=== PATIENT | male | born 1950 | race Caucasian/White ===

== ENCOUNTER 2017-08-08 13:20 | Inpatient (IN) | payer MEDICARE, MEDICAID ==
[~2017-08-08 13:20] MED LIST: ALBUTEROL SULFATE 2.5 MG/0.5 ML INH NEB SOLN NEB; BISACODYL 5 MG TAB PO; MIRALAX *UNIT DOSE* 17GM PACKET PO; NICOTINE POLACRILEX 2 MG GUM PO; ONDANSETRON 4 MG TAB (S0181) PO; ONDANSETRON 4MG/2ML VIAL (J2405) IM; SIMETHICONE 80 MG CHEW TAB PO; diphenhydrAMINE 25 MG CAP PO
[2017-08-08] MEDS: IPRATROPIUM 0.5MG/ALBUTEROL 2.5MG INH SOL UD 3ML (DUONEB)(J7620) NEB ×2 (16:49→20:00)
[2017-08-08] MEDS: GABAPENTIN 300 MG CAP PO ×2 (16:53→21:29)
[2017-08-08] MEDS: SILVER SULFADIAZINE 1% CR 50 GM JAR TOP ×2 (16:53→21:43)
[2017-08-08] MEDS: FOLIC ACID 1 MG TAB PO (16:53)
[2017-08-08] MEDS: oxyCODONE 5MG TAB PO ×2 (16:56→22:52)
[2017-08-08] MEDS: LOMOTIL 2.5MG/0.025MG TABLET PO ×2 (17:28→21:29)
[2017-08-08] MEDS: LOPERAMIDE 2 MG CAP PO ×2 (17:28→21:29)
[2017-08-08] MEDS: SYMBICORT 160/4.5MCG INHALER 6GM INH (20:29)
[2017-08-08] MEDS: MAGNESIUM GLUCONATE 500 MG TAB PO (21:28)
[2017-08-08] MEDS: METAMUCIL (PSYLLIUM) PACKET PO (21:28)
[2017-08-08] MEDS: FAMOTIDINE 20 MG TAB PO (21:29)
[2017-08-08] MEDS: APIXABAN 5 MG TAB (ELIQUIS) PO (21:31)
[2017-08-08] MEDS: traZODone 25MG PER 1/2 TABLET PO (21:32)
[2017-08-09] MEDS: GABAPENTIN 300 MG CAP PO ×3 (05:39→21:04)
[2017-08-09] MEDS: oxyCODONE 5MG TAB PO ×3 (06:53→21:53)
[2017-08-09 06:54] LABS: BASO % 0.3 % (0.0-1.0); EOS # 0.2 10^3/uL (0.0-0.50); EOS % 1.7 % (0.0-3.0); HEMOGLOBIN 10.6 g/dl (14.0-18.0); IMMATURE GRANULOCYTE % 0.3 % (0-3.0); LYMPH # 2.4 10^3/uL (1.5-4.5); LYMPH % 23.7 % (24.0-44.0); MEAN CORPUSCULAR HEMOGLOBIN 24.7 pg (27.0-33.0); MEAN CORPUSCULAR HGB CONC 29.4 g/dl (32.0-36.5); MEAN CORPUSCULAR VOLUME 83.7 fl (80.0-96.0); MONO # 0.9 10^3/uL (0.0-0.8); MONO % 9.4 % (0.0-5.0); NEUTROPHILS # 6.5 10^3/uL (1.8-7.7); NEUTROPHILS % 64.6 % (36.0-66.0); PLATELET COUNT, AUTOMATED 424 10^3/uL (150-450); RED CELL DISTRIBUTION WIDTH 16.2 % (11.5-14.5)
[2017-08-09 07:16] LABS: ALBUMIN 2.6 GM/DL (3.2-5.2); ALBUMIN/GLOBULIN RATIO 0.57 (1.00-1.93); ALKALINE PHOSPHATASE 96 U/L (45-117); ALT/SGPT 18 U/L (12-78); ANION GAP 8 MEQ/L (8-16); AST/SGOT 16 U/L (7-37); BILIRUBIN,TOTAL 0.3 MG/DL (0.2-1.0); BLOOD UREA NITROGEN 5 MG/DL (7-18); CALCIUM LEVEL 9.7 MG/DL (8.8-10.2); CARBON DIOXIDE LEVEL 26 MEQ/L (21-32); CHLORIDE LEVEL 107 MEQ/L (98-107); CREATININE FOR GFR 0.53 MG/DL (0.70-1.30); GLOMERULAR FILTRATION RATE > 60.0 (>49); GLUCOSE, FASTING 97 MG/DL (70-100); MAGNESIUM LEVEL 1.5 MG/DL (1.8-2.4); POTASSIUM SERUM 4.3 MEQ/L (3.5-5.1); SODIUM LEVEL 141 MEQ/L (136-145); TOTAL PROTEIN 7.2 GM/DL (6.4-8.2)
[2017-08-09] MEDS: SYMBICORT 160/4.5MCG INHALER 6GM INH ×2 (07:36→19:58)
[2017-08-09] MEDS: IPRATROPIUM 0.5MG/ALBUTEROL 2.5MG INH SOL UD 3ML (DUONEB)(J7620) NEB ×4 (07:36→19:59)
[2017-08-09] MEDS: LOMOTIL 2.5MG/0.025MG TABLET PO ×4 (08:31→21:04)
[2017-08-09] MEDS: FLUTICASONE PROP 0.05% NASAL SPRAY 16 GM (FLONASE) (08:31)
[2017-08-09] MEDS: MAGNESIUM GLUCONATE 500 MG TAB PO ×2 (08:32→21:04)
[2017-08-09] MEDS: predniSONE 5 MG TAB PO (08:32)
[2017-08-09] MEDS: APIXABAN 5 MG TAB (ELIQUIS) PO ×2 (08:32→21:04)
[2017-08-09] MEDS: FAMOTIDINE 20 MG TAB PO ×2 (08:32→21:04)
[2017-08-09] MEDS: FOLIC ACID 1 MG TAB PO (08:33)
[2017-08-09] MEDS: LOPERAMIDE 2 MG CAP PO ×4 (08:33→21:04)
[2017-08-09] MEDS: NICOTINE 21MG/24HR 1 EA TRANSDERMAL TD (08:33)
[2017-08-09] MEDS: METAMUCIL (PSYLLIUM) PACKET PO ×2 (08:33→21:03)
[2017-08-09] MEDS: SILVER SULFADIAZINE 1% CR 50 GM JAR TOP (08:34)
[2017-08-09] MEDS: ACETAMINOPHEN TAB 650MG DOSE (2X325MG) PO ×2 (10:08→18:43)
[2017-08-09] MEDS: MAG SULF 1GM/100ML (MAG RUN) 1 GM in APPROPRIATE DILUENT 1 EA IV ×2 (10:35→17:28)
[2017-08-09] MEDS ORDERED: GLUCOSE 4 GM CHEW TABLET PO (11:30)
[2017-08-09] MEDS ORDERED: DEXTROSE 50% 50 ML SYRINGE IV (11:30)
[2017-08-09] MEDS ORDERED: GLUCAGON FOR INJ 1 MG VIAL (J1610) SC (11:30)
[2017-08-09 12:17] LABS: BEDSIDE GLUCOSE 122 MG/DL (80-115)
[2017-08-09] MEDS: LIDOCAINE 2% JELLY 30 ML TOP (16:57)
[2017-08-09 18:55] LABS: BEDSIDE GLUCOSE 125 MG/DL (80-115)
[2017-08-09] MEDS ORDERED: HumaLOG INSULIN (NovoLOG) PER UNIT SC (21:00)
[2017-08-09] MEDS: traZODone 25MG PER 1/2 TABLET PO (21:04)
[2017-08-09 23:22] LABS: BEDSIDE GLUCOSE 106 MG/DL (80-115)
[2017-08-10] MEDS: oxyCODONE 5MG TAB PO ×3 (05:53→22:24)
[2017-08-10] MEDS: GABAPENTIN 300 MG CAP PO ×3 (05:53→22:15)
[2017-08-10 07:24] LABS: ANION GAP 9 MEQ/L (8-16); BLOOD UREA NITROGEN 8 MG/DL (7-18); CALCIUM LEVEL 9.8 MG/DL (8.8-10.2); CARBON DIOXIDE LEVEL 27 MEQ/L (21-32); CHLORIDE LEVEL 104 MEQ/L (98-107); CREATININE FOR GFR 0.52 MG/DL (0.70-1.30); GLOMERULAR FILTRATION RATE > 60.0 (>49); GLUCOSE, FASTING 71 MG/DL (70-100); MAGNESIUM LEVEL 1.8 MG/DL (1.8-2.4); POTASSIUM SERUM 4.4 MEQ/L (3.5-5.1); SODIUM LEVEL 140 MEQ/L (136-145)
[2017-08-10] MEDS: IPRATROPIUM 0.5MG/ALBUTEROL 2.5MG INH SOL UD 3ML (DUONEB)(J7620) NEB ×4 (08:00→20:00)
[2017-08-10] MEDS: SYMBICORT 160/4.5MCG INHALER 6GM INH ×2 (08:50→21:34)
[2017-08-10] MEDS: METAMUCIL (PSYLLIUM) PACKET PO ×2 (09:06→22:15)
[2017-08-10] MEDS: NICOTINE 21MG/24HR 1 EA TRANSDERMAL TD (09:06)
[2017-08-10] MEDS: predniSONE 5 MG TAB PO (09:07)
[2017-08-10] MEDS: APIXABAN 5 MG TAB (ELIQUIS) PO ×2 (09:07→22:16)
[2017-08-10] MEDS: LOPERAMIDE 2 MG CAP PO ×4 (09:07→22:17)
[2017-08-10] MEDS: LOMOTIL 2.5MG/0.025MG TABLET PO ×4 (09:07→22:16)
[2017-08-10] MEDS: FAMOTIDINE 20 MG TAB PO ×2 (09:07→22:17)
[2017-08-10] MEDS: FLUTICASONE PROP 0.05% NASAL SPRAY 16 GM (FLONASE) (09:08)
[2017-08-10] MEDS: SILVER SULFADIAZINE 1% CR 50 GM JAR TOP (09:08)
[2017-08-10] MEDS: MAGNESIUM GLUCONATE 500 MG TAB PO ×3 (09:08→22:16)
[2017-08-10] MEDS: FOLIC ACID 1 MG TAB PO (09:08)
[2017-08-10] MEDS: ACETAMINOPHEN TAB 650MG DOSE (2X325MG) PO (09:50)
[2017-08-10 11:45] LABS: BEDSIDE GLUCOSE 137 MG/DL (80-115)
[2017-08-10] MEDS ORDERED: VARIBAR NECTAR 40% w/v 240ML SUSP BTL As Ordered (14:06)
[2017-08-10] MEDS ORDERED: VARIBAR PUDDING 40% w/v 230ML TUBE As Ordered (14:06)
[2017-08-10] MEDS ORDERED: E-Z-PAQUE 96% w/w SUSP 176GM BTL As Ordered (14:07)
[2017-08-10] MEDS: traZODone 25MG PER 1/2 TABLET PO (22:16)
[2017-08-11] MEDS: oxyCODONE 5MG TAB PO ×3 (06:13→21:30)
[2017-08-11] MEDS: GABAPENTIN 300 MG CAP PO ×3 (06:15→21:28)
[2017-08-11] MEDS: IPRATROPIUM 0.5MG/ALBUTEROL 2.5MG INH SOL UD 3ML (DUONEB)(J7620) NEB ×4 (08:00→20:00)
[2017-08-11] MEDS: SYMBICORT 160/4.5MCG INHALER 6GM INH ×2 (08:34→20:34)
[2017-08-11] MEDS: MAGNESIUM GLUCONATE 500 MG TAB PO ×3 (09:29→21:29)
[2017-08-11] MEDS: NICOTINE 21MG/24HR 1 EA TRANSDERMAL TD (09:29)
[2017-08-11] MEDS: METAMUCIL (PSYLLIUM) PACKET PO ×2 (09:29→21:28)
[2017-08-11] MEDS: FOLIC ACID 1 MG TAB PO (09:30)
[2017-08-11] MEDS: APIXABAN 5 MG TAB (ELIQUIS) PO ×2 (09:30→21:29)
[2017-08-11] MEDS: FAMOTIDINE 20 MG TAB PO ×2 (09:30→21:29)
[2017-08-11] MEDS: LOPERAMIDE 2 MG CAP PO ×4 (09:30→21:29)
[2017-08-11] MEDS: predniSONE 5 MG TAB PO (09:30)
[2017-08-11] MEDS: LOMOTIL 2.5MG/0.025MG TABLET PO ×4 (09:31→21:29)
[2017-08-11] MEDS: SILVER SULFADIAZINE 1% CR 50 GM JAR TOP (09:31)
[2017-08-11] MEDS: FLUTICASONE PROP 0.05% NASAL SPRAY 16 GM (FLONASE) (09:31)
[2017-08-11] MEDS: ACETAMINOPHEN TAB 650MG DOSE (2X325MG) PO (10:04)
[2017-08-11] MEDS: traZODone 25MG PER 1/2 TABLET PO (21:29)
[2017-08-12] MEDS: GABAPENTIN 300 MG CAP PO ×3 (06:45→21:27)
[2017-08-12] MEDS: oxyCODONE 5MG TAB PO ×3 (06:46→21:23)
[2017-08-12 07:27] LABS: BASO % 0.3 % (0.0-1.0); EOS # 0.2 10^3/uL (0.0-0.50); HEMATOCRIT 34.8 % (42.0-52.0); HEMOGLOBIN 10.1 g/dl (14.0-18.0); IMMATURE GRANULOCYTE % 0.4 % (0-3.0); LYMPH # 2.9 10^3/uL (1.5-4.5); LYMPH % 27.9 % (24.0-44.0); MEAN CORPUSCULAR HEMOGLOBIN 24.6 pg (27.0-33.0); MEAN CORPUSCULAR VOLUME 84.7 fl (80.0-96.0); MONO # 0.9 10^3/uL (0.0-0.8); MONO % 8.8 % (0.0-5.0); NEUTROPHILS # 6.3 10^3/uL (1.8-7.7); NEUTROPHILS % 60.6 % (36.0-66.0); PLATELET COUNT, AUTOMATED 381 10^3/uL (150-450); RED BLOOD COUNT 4.11 10^6/uL (4.30-6.10); RED CELL DISTRIBUTION WIDTH 16.4 % (11.5-14.5); WHITE BLOOD COUNT 10.4 10^3/uL (4.0-10.0)
[2017-08-12] MEDS: IPRATROPIUM 0.5MG/ALBUTEROL 2.5MG INH SOL UD 3ML (DUONEB)(J7620) NEB ×4 (07:38→19:42)
[2017-08-12 07:51] LABS: ANION GAP 7 MEQ/L (8-16); BLOOD UREA NITROGEN 6 MG/DL (7-18); CALCIUM LEVEL 9.7 MG/DL (8.8-10.2); CARBON DIOXIDE LEVEL 27 MEQ/L (21-32); CHLORIDE LEVEL 107 MEQ/L (98-107); CREATININE FOR GFR 0.51 MG/DL (0.70-1.30); GLOMERULAR FILTRATION RATE > 60.0 (>49); GLUCOSE, FASTING 69 MG/DL (70-100); MAGNESIUM LEVEL 1.5 MG/DL (1.8-2.4); POTASSIUM SERUM 4.1 MEQ/L (3.5-5.1); SODIUM LEVEL 141 MEQ/L (136-145)
[2017-08-12] MEDS: LOMOTIL 2.5MG/0.025MG TABLET PO ×4 (08:24→21:22)
[2017-08-12] MEDS: APIXABAN 5 MG TAB (ELIQUIS) PO ×2 (08:25→21:23)
[2017-08-12] MEDS: MAGNESIUM GLUCONATE 500 MG TAB PO ×3 (08:25→21:21)
[2017-08-12] MEDS: FOLIC ACID 1 MG TAB PO (08:25)
[2017-08-12] MEDS: predniSONE 5 MG TAB PO (08:25)
[2017-08-12] MEDS: NICOTINE 21MG/24HR 1 EA TRANSDERMAL TD (08:25)
[2017-08-12] MEDS: LOPERAMIDE 2 MG CAP PO ×4 (08:25→21:24)
[2017-08-12] MEDS: METAMUCIL (PSYLLIUM) PACKET PO ×2 (08:25→21:21)
[2017-08-12] MEDS: FAMOTIDINE 20 MG TAB PO ×2 (08:25→21:23)
[2017-08-12] MEDS: FLUTICASONE PROP 0.05% NASAL SPRAY 16 GM (FLONASE) (08:27)
[2017-08-12] MEDS: SYMBICORT 160/4.5MCG INHALER 6GM INH ×2 (09:38→19:42)
[2017-08-12] MEDS: ACETAMINOPHEN TAB 650MG DOSE (2X325MG) PO (10:21)
[2017-08-12] MEDS: MAG SULF 1GM/100ML (MAG RUN) 1 GM in APPROPRIATE DILUENT 1 EA IV (12:24)
[2017-08-12 21:02] LABS: BEDSIDE GLUCOSE 116 MG/DL (80-115)
[2017-08-12] MEDS: traZODone 25MG PER 1/2 TABLET PO (21:21)
[2017-08-13] MEDS: GABAPENTIN 300 MG CAP PO ×3 (05:33→21:26)
[2017-08-13 06:12] LABS: HEMATOCRIT 33.9 % (42.0-52.0); HEMOGLOBIN 9.7 g/dl (14.0-18.0); MEAN CORPUSCULAR HEMOGLOBIN 24.1 pg (27.0-33.0); MEAN CORPUSCULAR HGB CONC 28.6 g/dl (32.0-36.5); MEAN CORPUSCULAR VOLUME 84.3 fl (80.0-96.0); PLATELET COUNT, AUTOMATED 364 10^3/uL (150-450); RED BLOOD COUNT 4.02 10^6/uL (4.30-6.10); RED CELL DISTRIBUTION WIDTH 16.1 % (11.5-14.5)
[2017-08-13 06:51] LABS: ALBUMIN 2.4 GM/DL (3.2-5.2); ALBUMIN/GLOBULIN RATIO 0.56 (1.00-1.93); ALKALINE PHOSPHATASE 87 U/L (45-117); ALT/SGPT 27 U/L (12-78); ANION GAP 8 MEQ/L (8-16); AST/SGOT 19 U/L (7-37); BILIRUBIN,TOTAL 0.3 MG/DL (0.2-1.0); BLOOD UREA NITROGEN 6 MG/DL (7-18); CALCIUM LEVEL 9.6 MG/DL (8.8-10.2); CARBON DIOXIDE LEVEL 25 MEQ/L (21-32); CHLORIDE LEVEL 108 MEQ/L (98-107); CREATININE FOR GFR 0.41 MG/DL (0.70-1.30); GLOMERULAR FILTRATION RATE > 60.0 (>49); GLUCOSE, FASTING 59 MG/DL (70-100); MAGNESIUM LEVEL 1.6 MG/DL (1.8-2.4); POTASSIUM SERUM 3.8 MEQ/L (3.5-5.1); SODIUM LEVEL 141 MEQ/L (136-145); TOTAL PROTEIN 6.7 GM/DL (6.4-8.2)
[2017-08-13] MEDS: LOMOTIL 2.5MG/0.025MG TABLET PO ×4 (07:38→21:25)
[2017-08-13] MEDS: oxyCODONE 5MG TAB PO ×3 (07:39→21:26)
[2017-08-13] MEDS: LOPERAMIDE 2 MG CAP PO ×4 (07:39→21:26)
[2017-08-13] MEDS: IPRATROPIUM 0.5MG/ALBUTEROL 2.5MG INH SOL UD 3ML (DUONEB)(J7620) NEB ×4 (08:00→19:22)
[2017-08-13] MEDS: SYMBICORT 160/4.5MCG INHALER 6GM INH ×2 (08:21→19:22)
[2017-08-13] MEDS: METAMUCIL (PSYLLIUM) PACKET PO ×2 (08:59→21:25)
[2017-08-13] MEDS: MAGNESIUM GLUCONATE 500 MG TAB PO ×3 (08:59→21:26)
[2017-08-13] MEDS: APIXABAN 5 MG TAB (ELIQUIS) PO ×2 (08:59→21:26)
[2017-08-13] MEDS: NICOTINE 21MG/24HR 1 EA TRANSDERMAL TD (08:59)
[2017-08-13] MEDS: FOLIC ACID 1 MG TAB PO (08:59)
[2017-08-13] MEDS: predniSONE 5 MG TAB PO (08:59)
[2017-08-13] MEDS: FLUTICASONE PROP 0.05% NASAL SPRAY 16 GM (FLONASE) (08:59)
[2017-08-13] MEDS: FAMOTIDINE 20 MG TAB PO ×2 (08:59→21:26)
[2017-08-13] MEDS: ACETAMINOPHEN TAB 650MG DOSE (2X325MG) PO (11:23)
[2017-08-13 11:33] LABS: BEDSIDE GLUCOSE 117 MG/DL (80-115)
[2017-08-13 16:38] LABS: BEDSIDE GLUCOSE 107 MG/DL (80-115)
[2017-08-13] MEDS: MAG SULF 1GM/100ML (MAG RUN) 1 GM in APPROPRIATE DILUENT 1 EA IV (21:25)
[2017-08-13] MEDS: traZODone 25MG PER 1/2 TABLET PO (21:25)
[2017-08-13 23:04] LABS: BEDSIDE GLUCOSE 131 MG/DL (80-115)
[2017-08-14 01:55] LABS: MAGNESIUM LEVEL 1.7 MG/DL (1.8-2.4)
[2017-08-14] MEDS: MAG SULF 1GM/100ML (MAG RUN) 1 GM in APPROPRIATE DILUENT 1 EA IV (03:07)
[2017-08-14] MEDS: oxyCODONE 5MG TAB PO ×3 (06:08→20:24)
[2017-08-14] MEDS: GABAPENTIN 300 MG CAP PO ×3 (06:08→21:56)
[2017-08-14 06:19] LABS: HEMATOCRIT 31.4 % (42.0-52.0); HEMOGLOBIN 9.2 g/dl (14.0-18.0); MEAN CORPUSCULAR HEMOGLOBIN 24.7 pg (27.0-33.0); MEAN CORPUSCULAR HGB CONC 29.3 g/dl (32.0-36.5); MEAN CORPUSCULAR VOLUME 84.4 fl (80.0-96.0); PLATELET COUNT, AUTOMATED 352 10^3/uL (150-450); RED BLOOD COUNT 3.72 10^6/uL (4.30-6.10); RED CELL DISTRIBUTION WIDTH 16.1 % (11.5-14.5); WHITE BLOOD COUNT 9.6 10^3/uL (4.0-10.0)
[2017-08-14 06:44] LABS: ALBUMIN 2.4 GM/DL (3.2-5.2); ALBUMIN/GLOBULIN RATIO 0.62 (1.00-1.93); ALKALINE PHOSPHATASE 82 U/L (45-117); ALT/SGPT 27 U/L (12-78); ANION GAP 7 MEQ/L (8-16); AST/SGOT 17 U/L (7-37); BILIRUBIN,TOTAL 0.2 MG/DL (0.2-1.0); BLOOD UREA NITROGEN 4 MG/DL (7-18); CALCIUM LEVEL 9.1 MG/DL (8.8-10.2); CARBON DIOXIDE LEVEL 26 MEQ/L (21-32); CHLORIDE LEVEL 111 MEQ/L (98-107); CREATININE FOR GFR 0.39 MG/DL (0.70-1.30); GLOMERULAR FILTRATION RATE > 60.0 (>49); GLUCOSE, FASTING 71 MG/DL (70-100); MAGNESIUM LEVEL 1.9 MG/DL (1.8-2.4); POTASSIUM SERUM 3.7 MEQ/L (3.5-5.1); SODIUM LEVEL 144 MEQ/L (136-145); TOTAL PROTEIN 6.3 GM/DL (6.4-8.2)
[2017-08-14] MEDS: IPRATROPIUM 0.5MG/ALBUTEROL 2.5MG INH SOL UD 3ML (DUONEB)(J7620) NEB ×3 (08:00→15:11)
[2017-08-14] MEDS: SYMBICORT 160/4.5MCG INHALER 6GM INH ×2 (08:19→19:34)
[2017-08-14] MEDS: LOMOTIL 2.5MG/0.025MG TABLET PO ×4 (09:06→20:24)
[2017-08-14] MEDS: MAGNESIUM GLUCONATE 500 MG TAB PO ×3 (09:06→20:23)
[2017-08-14] MEDS: FOLIC ACID 1 MG TAB PO (09:06)
[2017-08-14] MEDS: LOPERAMIDE 2 MG CAP PO ×4 (09:06→20:24)
[2017-08-14] MEDS: predniSONE 5 MG TAB PO (09:07)
[2017-08-14] MEDS: FLUTICASONE PROP 0.05% NASAL SPRAY 16 GM (FLONASE) (09:07)
[2017-08-14] MEDS: NICOTINE 21MG/24HR 1 EA TRANSDERMAL TD (09:07)
[2017-08-14] MEDS: APIXABAN 5 MG TAB (ELIQUIS) PO ×2 (09:07→20:24)
[2017-08-14] MEDS: METAMUCIL (PSYLLIUM) PACKET PO ×2 (09:07→20:24)
[2017-08-14] MEDS: FAMOTIDINE 20 MG TAB PO ×2 (09:07→20:24)
[2017-08-14] MEDS: ACETAMINOPHEN TAB 650MG DOSE (2X325MG) PO (09:08)
[2017-08-14] MEDS: traZODone 25MG PER 1/2 TABLET PO (20:23)
[2017-08-14 20:39] LABS: BEDSIDE GLUCOSE 104 MG/DL (80-115)
[2017-08-15] MEDS: GABAPENTIN 300 MG CAP PO ×3 (06:29→21:30)
[2017-08-15] MEDS: oxyCODONE 5MG TAB PO ×2 (06:31→12:58)
[2017-08-15 07:01] LABS: HEMATOCRIT 34.5 % (42.0-52.0); HEMOGLOBIN 10.1 g/dl (14.0-18.0); MEAN CORPUSCULAR HEMOGLOBIN 24.6 pg (27.0-33.0); MEAN CORPUSCULAR HGB CONC 29.3 g/dl (32.0-36.5); MEAN CORPUSCULAR VOLUME 83.9 fl (80.0-96.0); PLATELET COUNT, AUTOMATED 389 10^3/uL (150-450); RED BLOOD COUNT 4.11 10^6/uL (4.30-6.10); RED CELL DISTRIBUTION WIDTH 16.3 % (11.5-14.5); WHITE BLOOD COUNT 10.3 10^3/uL (4.0-10.0)
[2017-08-15 07:20] LABS: ALBUMIN 2.6 GM/DL (3.2-5.2); ALBUMIN/GLOBULIN RATIO 0.72 (1.00-1.93); ALKALINE PHOSPHATASE 84 U/L (45-117); ALT/SGPT 30 U/L (12-78); ANION GAP 8 MEQ/L (8-16); AST/SGOT 20 U/L (7-37); BILIRUBIN,TOTAL 0.2 MG/DL (0.2-1.0); BLOOD UREA NITROGEN 5 MG/DL (7-18); CALCIUM LEVEL 9.6 MG/DL (8.8-10.2); CARBON DIOXIDE LEVEL 26 MEQ/L (21-32); CHLORIDE LEVEL 110 MEQ/L (98-107); CREATININE FOR GFR 0.45 MG/DL (0.70-1.30); GLOMERULAR FILTRATION RATE > 60.0 (>49); GLUCOSE, FASTING 70 MG/DL (70-100); MAGNESIUM LEVEL 1.7 MG/DL (1.8-2.4); POTASSIUM SERUM 4.1 MEQ/L (3.5-5.1); SODIUM LEVEL 144 MEQ/L (136-145); TOTAL PROTEIN 6.2 GM/DL (6.4-8.2)
[2017-08-15] MEDS: IPRATROPIUM 0.5MG/ALBUTEROL 2.5MG INH SOL UD 3ML (DUONEB)(J7620) NEB ×4 (08:00→20:00)
[2017-08-15] MEDS: SYMBICORT 160/4.5MCG INHALER 6GM INH ×2 (08:19→19:38)
[2017-08-15] MEDS: FLUTICASONE PROP 0.05% NASAL SPRAY 16 GM (FLONASE) (08:49)
[2017-08-15] MEDS: predniSONE 5 MG TAB PO (08:50)
[2017-08-15] MEDS: LOMOTIL 2.5MG/0.025MG TABLET PO ×4 (08:50→21:30)
[2017-08-15] MEDS: MAGNESIUM GLUCONATE 500 MG TAB PO ×3 (08:50→21:30)
[2017-08-15] MEDS: FOLIC ACID 1 MG TAB PO (08:51)
[2017-08-15] MEDS: NICOTINE 21MG/24HR 1 EA TRANSDERMAL TD (08:51)
[2017-08-15] MEDS: LOPERAMIDE 2 MG CAP PO ×4 (08:51→21:28)
[2017-08-15] MEDS: FAMOTIDINE 20 MG TAB PO ×2 (08:51→21:30)
[2017-08-15] MEDS: APIXABAN 5 MG TAB (ELIQUIS) PO ×2 (08:51→21:30)
[2017-08-15] MEDS: METAMUCIL (PSYLLIUM) PACKET PO (08:51)
[2017-08-15 12:27] LABS: BEDSIDE GLUCOSE 111 MG/DL (80-115)
[2017-08-15] MEDS: MAG SULF 1GM/100ML (MAG RUN) 1 GM in APPROPRIATE DILUENT 1 EA IV (12:37)
[2017-08-15] MEDS ORDERED: SALIVA SUBSTITUTE(MOUTHKOTE) BTL MT ×2 (13:00)
[2017-08-15] MEDS: SALIVA SUBSTITUTE(MOUTHKOTE) BTL MT ×2 (15:09→21:31)
[2017-08-15 17:15] LABS: BEDSIDE GLUCOSE 114 MG/DL (80-115)
[2017-08-15] MEDS: traZODone 25MG PER 1/2 TABLET PO (21:30)
[2017-08-15] MEDS: MORPHINE 15 MG SA TAB PO (21:30)
[2017-08-16] MEDS: GABAPENTIN 300 MG CAP PO ×3 (06:29→21:53)
[2017-08-16] MEDS: oxyCODONE 5MG TAB PO ×3 (06:30→21:54)
[2017-08-16] MEDS: SODIUM CHLORIDE NASAL 0.65% SPRAY BTL (OCEAN) (06:31)
[2017-08-16 06:36] LABS: MEAN CORPUSCULAR HEMOGLOBIN 24.4 pg (27.0-33.0); MEAN CORPUSCULAR HGB CONC 29.4 g/dl (32.0-36.5); MEAN CORPUSCULAR VOLUME 82.9 fl (80.0-96.0); PLATELET COUNT, AUTOMATED 392 10^3/uL (150-450); RED CELL DISTRIBUTION WIDTH 16.4 % (11.5-14.5); WHITE BLOOD COUNT 11.2 10^3/uL (4.0-10.0)
[2017-08-16 06:58] LABS: ALBUMIN 2.6 GM/DL (3.2-5.2); ALBUMIN/GLOBULIN RATIO 0.68 (1.00-1.93); ALKALINE PHOSPHATASE 92 U/L (45-117); ALT/SGPT 33 U/L (12-78); ANION GAP 7 MEQ/L (8-16); AST/SGOT 23 U/L (7-37); BILIRUBIN,TOTAL 0.3 MG/DL (0.2-1.0); BLOOD UREA NITROGEN 6 MG/DL (7-18); CALCIUM LEVEL 9.6 MG/DL (8.8-10.2); CARBON DIOXIDE LEVEL 26 MEQ/L (21-32); CHLORIDE LEVEL 108 MEQ/L (98-107); CREATININE FOR GFR 0.42 MG/DL (0.70-1.30); GLOMERULAR FILTRATION RATE > 60.0 (>49); GLUCOSE, FASTING 65 MG/DL (70-100); MAGNESIUM LEVEL 1.6 MG/DL (1.8-2.4); SODIUM LEVEL 141 MEQ/L (136-145); TOTAL PROTEIN 6.4 GM/DL (6.4-8.2)
[2017-08-16] MEDS: IPRATROPIUM 0.5MG/ALBUTEROL 2.5MG INH SOL UD 3ML (DUONEB)(J7620) NEB ×3 (08:00→16:20)
[2017-08-16] MEDS: FOLIC ACID 1 MG TAB PO (08:16)
[2017-08-16] MEDS: predniSONE 5 MG TAB PO (08:16)
[2017-08-16] MEDS: FAMOTIDINE 20 MG TAB PO ×2 (08:16→21:53)
[2017-08-16] MEDS: APIXABAN 5 MG TAB (ELIQUIS) PO ×2 (08:16→21:53)
[2017-08-16] MEDS: MAGNESIUM GLUCONATE 500 MG TAB PO ×3 (08:16→21:54)
[2017-08-16] MEDS: NICOTINE 14 MG/24 HR TRANSDERMAL TD (08:16)
[2017-08-16] MEDS: LOMOTIL 2.5MG/0.025MG TABLET PO ×4 (08:16→21:54)
[2017-08-16] MEDS: SALIVA SUBSTITUTE(MOUTHKOTE) BTL MT ×3 (08:17→21:55)
[2017-08-16] MEDS: FLUTICASONE PROP 0.05% NASAL SPRAY 16 GM (FLONASE) (08:17)
[2017-08-16] MEDS: LOPERAMIDE 2 MG CAP PO (08:17)
[2017-08-16] MEDS: SYMBICORT 160/4.5MCG INHALER 6GM INH ×2 (08:21→19:30)
[2017-08-16] MEDS: MAG SULF 1GM/100ML (MAG RUN) 1 GM in APPROPRIATE DILUENT 1 EA IV ×2 (11:56→13:12)
[2017-08-16] MEDS: CHOLESTYRAMINE 4 GM PWD PKT PO (17:59)
[2017-08-16] MEDS: traZODone 25MG PER 1/2 TABLET PO (21:54)
[2017-08-17] MEDS: GABAPENTIN 300 MG CAP PO ×3 (05:59→20:55)
[2017-08-17] MEDS: oxyCODONE 5MG TAB PO ×3 (05:59→15:53)
[2017-08-17 07:16] LABS: HEMATOCRIT 33.2 % (42.0-52.0); HEMOGLOBIN 9.8 g/dl (14.0-18.0); MEAN CORPUSCULAR HEMOGLOBIN 24.1 pg (27.0-33.0); MEAN CORPUSCULAR HGB CONC 29.5 g/dl (32.0-36.5); MEAN CORPUSCULAR VOLUME 81.8 fl (80.0-96.0); PLATELET COUNT, AUTOMATED 392 10^3/uL (150-450); RED BLOOD COUNT 4.06 10^6/uL (4.30-6.10); RED CELL DISTRIBUTION WIDTH 16.4 % (11.5-14.5); WHITE BLOOD COUNT 10.6 10^3/uL (4.0-10.0)
[2017-08-17 07:36] LABS: ALBUMIN 2.5 GM/DL (3.2-5.2); ALBUMIN/GLOBULIN RATIO 0.64 (1.00-1.93); ALKALINE PHOSPHATASE 81 U/L (45-117); ALT/SGPT 33 U/L (12-78); ANION GAP 7 MEQ/L (8-16); AST/SGOT 20 U/L (7-37); BILIRUBIN,TOTAL 0.3 MG/DL (0.2-1.0); BLOOD UREA NITROGEN 7 MG/DL (7-18); CALCIUM LEVEL 9.2 MG/DL (8.8-10.2); CARBON DIOXIDE LEVEL 27 MEQ/L (21-32); CHLORIDE LEVEL 107 MEQ/L (98-107); GLOMERULAR FILTRATION RATE > 60.0 (>49); GLUCOSE, FASTING 72 MG/DL (70-100); MAGNESIUM LEVEL 1.6 MG/DL (1.8-2.4); POTASSIUM SERUM 3.8 MEQ/L (3.5-5.1); SODIUM LEVEL 141 MEQ/L (136-145); TOTAL PROTEIN 6.4 GM/DL (6.4-8.2)
[2017-08-17] MEDS: IPRATROPIUM 0.5MG/ALBUTEROL 2.5MG INH SOL UD 3ML (DUONEB)(J7620) NEB ×4 (08:00→20:00)
[2017-08-17] MEDS: predniSONE 5 MG TAB PO (08:55)
[2017-08-17] MEDS: FOLIC ACID 1 MG TAB PO (08:55)
[2017-08-17] MEDS: FAMOTIDINE 20 MG TAB PO ×2 (08:55→20:55)
[2017-08-17] MEDS: APIXABAN 5 MG TAB (ELIQUIS) PO ×2 (08:55→20:55)
[2017-08-17] MEDS: MAGNESIUM GLUCONATE 500 MG TAB PO (08:56)
[2017-08-17] MEDS: NICOTINE 14 MG/24 HR TRANSDERMAL TD (08:56)
[2017-08-17] MEDS: LOMOTIL 2.5MG/0.025MG TABLET PO ×4 (08:56→20:54)
[2017-08-17] MEDS: CHOLESTYRAMINE 4 GM PWD PKT PO ×2 (08:56→20:51)
[2017-08-17] MEDS: FLUTICASONE PROP 0.05% NASAL SPRAY 16 GM (FLONASE) (08:57)
[2017-08-17] MEDS: SALIVA SUBSTITUTE(MOUTHKOTE) BTL MT ×3 (08:58→20:56)
[2017-08-17] MEDS: ACETAMINOPHEN TAB 650MG DOSE (2X325MG) PO ×2 (08:59→20:56)
[2017-08-17] MEDS: SYMBICORT 160/4.5MCG INHALER 6GM INH ×2 (11:42→20:33)
[2017-08-17] MEDS: MAGNESIUM OXIDE 400 MG TAB (MAG-OX) PO ×2 (15:52→20:54)
[2017-08-17] MEDS: MAG SULF 1GM/100ML (MAG RUN) 1 GM in APPROPRIATE DILUENT 1 EA IV ×3 (15:54→18:39)
[2017-08-17] MEDS: traZODone 25MG PER 1/2 TABLET PO (20:52)
[2017-08-18] MEDS: oxyCODONE 5MG TAB PO ×3 (04:22→16:45)
[2017-08-18] MEDS: GABAPENTIN 300 MG CAP PO ×3 (05:23→21:07)
[2017-08-18 07:03] LABS: HEMATOCRIT 32.4 % (42.0-52.0); HEMOGLOBIN 9.5 g/dl (14.0-18.0); MEAN CORPUSCULAR HEMOGLOBIN 23.9 pg (27.0-33.0); MEAN CORPUSCULAR HGB CONC 29.3 g/dl (32.0-36.5); MEAN CORPUSCULAR VOLUME 81.6 fl (80.0-96.0); PLATELET COUNT, AUTOMATED 443 10^3/uL (150-450); RED BLOOD COUNT 3.97 10^6/uL (4.30-6.10); RED CELL DISTRIBUTION WIDTH 16.7 % (11.5-14.5); WHITE BLOOD COUNT 10.4 10^3/uL (4.0-10.0)
[2017-08-18 07:26] LABS: ALBUMIN 2.5 GM/DL (3.2-5.2); ALKALINE PHOSPHATASE 85 U/L (45-117); ALT/SGPT 33 U/L (12-78); ANION GAP 9 MEQ/L (8-16); AST/SGOT 21 U/L (7-37); BILIRUBIN,TOTAL 0.3 MG/DL (0.2-1.0); BLOOD UREA NITROGEN 7 MG/DL (7-18); CALCIUM LEVEL 9.4 MG/DL (8.8-10.2); CARBON DIOXIDE LEVEL 27 MEQ/L (21-32); CHLORIDE LEVEL 105 MEQ/L (98-107); CREATININE FOR GFR 0.44 MG/DL (0.70-1.30); GLOMERULAR FILTRATION RATE > 60.0 (>49); GLUCOSE, FASTING 64 MG/DL (70-100); MAGNESIUM LEVEL 1.9 MG/DL (1.8-2.4); POTASSIUM SERUM 3.7 MEQ/L (3.5-5.1); SODIUM LEVEL 141 MEQ/L (136-145); TOTAL PROTEIN 6.7 GM/DL (6.4-8.2)
[2017-08-18] MEDS: IPRATROPIUM 0.5MG/ALBUTEROL 2.5MG INH SOL UD 3ML (DUONEB)(J7620) NEB ×4 (08:00→19:42)
[2017-08-18] MEDS: FOLIC ACID 1 MG TAB PO (08:21)
[2017-08-18] MEDS: FAMOTIDINE 20 MG TAB PO ×2 (08:21→21:05)
[2017-08-18] MEDS: APIXABAN 5 MG TAB (ELIQUIS) PO ×2 (08:21→21:05)
[2017-08-18] MEDS: NICOTINE 14 MG/24 HR TRANSDERMAL TD (08:22)
[2017-08-18] MEDS: LOMOTIL 2.5MG/0.025MG TABLET PO ×4 (08:22→21:05)
[2017-08-18] MEDS: predniSONE 5 MG TAB PO (08:22)
[2017-08-18] MEDS: SALIVA SUBSTITUTE(MOUTHKOTE) BTL MT ×3 (08:22→21:11)
[2017-08-18] MEDS: CHOLESTYRAMINE 4 GM PWD PKT PO ×3 (08:22→21:04)
[2017-08-18] MEDS: MAGNESIUM OXIDE 400 MG TAB (MAG-OX) PO ×3 (08:23→21:06)
[2017-08-18] MEDS: FLUTICASONE PROP 0.05% NASAL SPRAY 16 GM (FLONASE) (08:23)
[2017-08-18 11:33] LABS: BEDSIDE GLUCOSE 98 MG/DL (80-115)
[2017-08-18] MEDS: SYMBICORT 160/4.5MCG INHALER 6GM INH ×2 (11:39→19:43)
[2017-08-18 17:12] LABS: BEDSIDE GLUCOSE 113 MG/DL (80-115)
[2017-08-18 20:46] LABS: BEDSIDE GLUCOSE 103 MG/DL (80-115)
[2017-08-18] MEDS: traZODone 25MG PER 1/2 TABLET PO (21:05)
[2017-08-18] MEDS: ACETAMINOPHEN TAB 650MG DOSE (2X325MG) PO (21:06)
[2017-08-19] MEDS: GABAPENTIN 300 MG CAP PO ×2 (05:22→13:45)
[2017-08-19] MEDS: oxyCODONE 5MG TAB PO ×2 (05:23→12:36)
[2017-08-19 06:49] LABS: HEMATOCRIT 32.7 % (42.0-52.0); HEMOGLOBIN 9.7 g/dl (14.0-18.0); MEAN CORPUSCULAR HGB CONC 29.7 g/dl (32.0-36.5); MEAN CORPUSCULAR VOLUME 80.9 fl (80.0-96.0); PLATELET COUNT, AUTOMATED 451 10^3/uL (150-450); RED BLOOD COUNT 4.04 10^6/uL (4.30-6.10); RED CELL DISTRIBUTION WIDTH 16.5 % (11.5-14.5); WHITE BLOOD COUNT 9.9 10^3/uL (4.0-10.0)
[2017-08-19 07:12] LABS: ALBUMIN 2.4 GM/DL (3.2-5.2); ALKALINE PHOSPHATASE 75 U/L (45-117); ALT/SGPT 31 U/L (12-78); ANION GAP 8 MEQ/L (8-16); AST/SGOT 22 U/L (7-37); BILIRUBIN,TOTAL 0.3 MG/DL (0.2-1.0); BLOOD UREA NITROGEN 8 MG/DL (7-18); CALCIUM LEVEL 9.2 MG/DL (8.8-10.2); CARBON DIOXIDE LEVEL 26 MEQ/L (21-32); CHLORIDE LEVEL 107 MEQ/L (98-107); CREATININE FOR GFR 0.46 MG/DL (0.70-1.30); GLOMERULAR FILTRATION RATE > 60.0 (>49); GLUCOSE, FASTING 70 MG/DL (70-100); MAGNESIUM LEVEL 1.7 MG/DL (1.8-2.4); POTASSIUM SERUM 3.7 MEQ/L (3.5-5.1); SODIUM LEVEL 141 MEQ/L (136-145); TOTAL PROTEIN 6.4 GM/DL (6.4-8.2)
[2017-08-19] MEDS: SYMBICORT 160/4.5MCG INHALER 6GM INH (07:47)
[2017-08-19] MEDS: IPRATROPIUM 0.5MG/ALBUTEROL 2.5MG INH SOL UD 3ML (DUONEB)(J7620) NEB ×2 (07:49→12:01)
[2017-08-19] MEDS ORDERED: MAG SULF 1GM/100ML (MAG RUN) 1 GM in APPROPRIATE DILUENT 1 EA IV (08:15)
[2017-08-19] MEDS: LOMOTIL 2.5MG/0.025MG TABLET PO ×2 (08:21→12:35)
[2017-08-19] MEDS: MAGNESIUM OXIDE 400 MG TAB (MAG-OX) PO (08:22)
[2017-08-19] MEDS: NICOTINE 14 MG/24 HR TRANSDERMAL TD (08:22)
[2017-08-19] MEDS: APIXABAN 5 MG TAB (ELIQUIS) PO (08:23)
[2017-08-19] MEDS: CHOLESTYRAMINE 4 GM PWD PKT PO (08:23)
[2017-08-19] MEDS: predniSONE 5 MG TAB PO (08:23)
[2017-08-19] MEDS: FOLIC ACID 1 MG TAB PO (08:23)
[2017-08-19] MEDS: FAMOTIDINE 20 MG TAB PO (08:23)
[2017-08-19] MEDS: FLUTICASONE PROP 0.05% NASAL SPRAY 16 GM (FLONASE) (08:24)
[2017-08-19] MEDS: SALIVA SUBSTITUTE(MOUTHKOTE) BTL MT (08:25)
[2017-08-19] MEDS: MAG SULF 1GM/100ML (MAG RUN) 1 GM in APPROPRIATE DILUENT 1 EA IV ×3 (10:56→13:45)
== END 2017-08-19 16:17 | disposition home health service (06) | DRG 948 ==
LOC: M PM&R 13:20
DX: R53.81 Other malaise (principal); R53.1 Weakness; I48.91 Unspecified atrial fibrillation; M10.9 Gout, unspecified; E11.42 Type 2 diabetes mellitus with diabetic polyneuropathy; J44.9 Chronic obstructive pulmonary disease, unspecified; R26.89 Other abnormalities of gait and mobility; G47.00 Insomnia, unspecified; R42 Dizziness and giddiness; Z66 Do not resuscitate; J30.9 Allergic rhinitis, unspecified; M21.371 Foot drop, right foot; M54.31 Sciatica, right side; M21.372 Foot drop, left foot; R68.2 Dry mouth, unspecified; E83.42 Hypomagnesemia; K21.9 Gastro-esophageal reflux disease without esophagitis; Z93.2 Ileostomy status; Z79.01 Long term (current) use of anticoagulants; Z87.891 Personal history of nicotine dependence; Z79.52 Long term (current) use of systemic steroids; Z79.899 Other long term (current) drug therapy; Z86.711 Personal history of pulmonary embolism; Z87.442 Personal history of urinary calculi

== ENCOUNTER 2017-11-17 13:10 | Inpatient (IN) | payer MEDICARE, MEDICAID ==
[~2017-11-17 13:10] MED LIST changes: +ALBUTEROL SULFATE 2.5 MG/0.5 ML INH NEB SOLN INH; -ALBUTEROL SULFATE 2.5 MG/0.5 ML INH NEB SOLN NEB; -BISACODYL 5 MG TAB PO; -MIRALAX *UNIT DOSE* 17GM PACKET PO; -NICOTINE POLACRILEX 2 MG GUM PO; -ONDANSETRON 4 MG TAB (S0181) PO; -ONDANSETRON 4MG/2ML VIAL (J2405) IM; -SIMETHICONE 80 MG CHEW TAB PO; +SODIUM CHLORIDE NASAL 0.65% SPRAY BTL (OCEAN); -diphenhydrAMINE 25 MG CAP PO
[2017-11-17] MEDS: FERROUS SULFATE 325MG TAB PO (15:32)
[2017-11-17] MEDS: FLUTICASONE PROP 0.05% NASAL SPRAY 16 GM (FLONASE) (15:33)
[2017-11-17] MEDS: FOLIC ACID 1 MG TAB PO (15:33)
[2017-11-17] MEDS: IPRATROPIUM 0.5MG/ALBUTEROL 2.5MG INH SOL UD 3ML (DUONEB)(J7620) NEB ×2 (16:00→19:45)
[2017-11-17] MEDS: predniSONE 5 MG TAB PO ×2 (16:33→20:49)
[2017-11-17] MEDS: LOPERAMIDE 2 MG CAP PO ×2 (16:33→20:50)
[2017-11-17] MEDS: MAGNESIUM OXIDE 400 MG TAB (MAG-OX) PO ×2 (16:33→20:50)
[2017-11-17] MEDS: GABAPENTIN 300 MG CAP PO ×2 (16:33→20:50)
[2017-11-17] MEDS: SALIVA SUBSTITUTE(MOUTHKOTE) BTL MT ×3 (16:33→20:33)
[2017-11-17] MEDS: LOMOTIL 2.5MG/0.025MG TABLET PO ×2 (16:34→20:50)
[2017-11-17] MEDS: SYMBICORT 160/4.5MCG INHALER 6GM INH (19:39)
[2017-11-17] MEDS: NICOTINE 14 MG/24 HR TRANSDERMAL TD (20:49)
[2017-11-17] MEDS: FAMOTIDINE 20 MG TAB PO (20:49)
[2017-11-17] MEDS: APIXABAN 5 MG TAB (ELIQUIS) PO (20:50)
[2017-11-17] MEDS: METAMUCIL (PSYLLIUM) PACKET PO (20:51)
[2017-11-17] MEDS: oxyCODONE 5MG TAB PO (20:51)
[2017-11-17] MEDS: traZODone 50 MG TAB PO (20:55)
[2017-11-18] MEDS: ONDANSETRON 4 MG TAB (S0181) PO ×3 (06:11→20:15)
[2017-11-18] MEDS: oxyCODONE 5MG TAB PO ×2 (06:54→20:14)
[2017-11-18 06:59] LABS: BASO % 0.2 % (0.0-1.0); EOS # 0.1 10^3/uL (0.0-0.50); EOS % 0.4 % (0.0-3.0); HEMATOCRIT 41.1 % (42.0-52.0); HEMOGLOBIN 12.6 g/dl (13.5-17.5); IMMATURE GRANULOCYTE % 0.4 % (0-3.0); LYMPH # 1.6 10^3/uL (1.5-4.5); LYMPH % 14.2 % (24.0-44.0); MEAN CORPUSCULAR HEMOGLOBIN 25.8 pg (27.0-33.0); MEAN CORPUSCULAR HGB CONC 30.7 g/dl (32.0-36.5); MONO # 0.8 10^3/uL (0.0-0.8); MONO % 7.1 % (0.0-5.0); NEUTROPHILS # 8.8 10^3/uL (1.8-7.7); NEUTROPHILS % 77.7 % (36.0-66.0); PLATELET COUNT, AUTOMATED 334 10^3/uL (150-450); RED BLOOD COUNT 4.89 10^6/uL (4.30-6.10); RED CELL DISTRIBUTION WIDTH 18.9 % (11.5-14.5); WHITE BLOOD COUNT 11.3 10^3/uL (4.0-10.0)
[2017-11-18 07:17] LABS: ALBUMIN 2.6 GM/DL (3.2-5.2); ALBUMIN/GLOBULIN RATIO 0.63 (1.00-1.93); ALKALINE PHOSPHATASE 75 U/L (45-117); ALT/SGPT 41 U/L (12-78); ANION GAP 7 MEQ/L (8-16); AST/SGOT 15 U/L (7-37); BILIRUBIN,TOTAL 0.4 MG/DL (0.2-1.0); BLOOD UREA NITROGEN 10 MG/DL (7-18); CALCIUM LEVEL 9.6 MG/DL (8.8-10.2); CARBON DIOXIDE LEVEL 30 MEQ/L (21-32); CHLORIDE LEVEL 107 MEQ/L (98-107); CREATININE FOR GFR 0.58 MG/DL (0.70-1.30); GLOMERULAR FILTRATION RATE > 60.0 (>49); GLUCOSE, FASTING 81 MG/DL (70-100); MAGNESIUM LEVEL 1.5 MG/DL (1.8-2.4); POTASSIUM SERUM 4.2 MEQ/L (3.5-5.1); SODIUM LEVEL 144 MEQ/L (136-145); TOTAL PROTEIN 6.7 GM/DL (6.4-8.2)
[2017-11-18] MEDS: LOMOTIL 2.5MG/0.025MG TABLET PO ×4 (07:57→20:14)
[2017-11-18] MEDS: APIXABAN 5 MG TAB (ELIQUIS) PO ×2 (07:58→20:15)
[2017-11-18] MEDS: predniSONE 5 MG TAB PO ×3 (07:58→20:15)
[2017-11-18] MEDS: MAGNESIUM OXIDE 400 MG TAB (MAG-OX) PO ×3 (07:58→20:15)
[2017-11-18] MEDS: LOPERAMIDE 2 MG CAP PO ×4 (07:58→20:15)
[2017-11-18] MEDS: GABAPENTIN 300 MG CAP PO ×3 (07:58→20:15)
[2017-11-18] MEDS: METAMUCIL (PSYLLIUM) PACKET PO ×2 (07:59→20:15)
[2017-11-18] MEDS: FOLIC ACID 1 MG TAB PO (07:59)
[2017-11-18] MEDS: SALIVA SUBSTITUTE(MOUTHKOTE) BTL MT ×3 (07:59→20:12)
[2017-11-18] MEDS: FERROUS SULFATE 325MG TAB PO (07:59)
[2017-11-18] MEDS: FAMOTIDINE 20 MG TAB PO ×2 (07:59→20:15)
[2017-11-18] MEDS: FLUTICASONE PROP 0.05% NASAL SPRAY 16 GM (FLONASE) (07:59)
[2017-11-18] MEDS: IPRATROPIUM 0.5MG/ALBUTEROL 2.5MG INH SOL UD 3ML (DUONEB)(J7620) NEB ×4 (08:00→19:25)
[2017-11-18] MEDS: SYMBICORT 160/4.5MCG INHALER 6GM INH ×2 (08:32→19:28)
[2017-11-18] MEDS ORDERED: MAG SULF 1GM/100ML (MAG RUN) 1 GM in APPROPRIATE DILUENT 1 EA IV (09:45)
[2017-11-18] MEDS: SIMETHICONE 80 MG CHEW TAB PO (16:49)
[2017-11-18] MEDS: MAG SULF 1GM/100ML (MAG RUN) 1 GM in APPROPRIATE DILUENT 1 EA IV ×2 (16:50→17:39)
[2017-11-18] MEDS: NICOTINE 14 MG/24 HR TRANSDERMAL TD (20:13)
[2017-11-19] MEDS: oxyCODONE 5MG TAB PO ×3 (05:44→21:43)
[2017-11-19] MEDS: ONDANSETRON 4 MG TAB (S0181) PO ×3 (05:44→19:28)
[2017-11-19 06:26] LABS: HEMOGLOBIN 11.9 g/dl (13.5-17.5); MEAN CORPUSCULAR HEMOGLOBIN 25.8 pg (27.0-33.0); MEAN CORPUSCULAR HGB CONC 30.5 g/dl (32.0-36.5); MEAN CORPUSCULAR VOLUME 84.4 fl (80.0-96.0); PLATELET COUNT, AUTOMATED 319 10^3/uL (150-450); RED BLOOD COUNT 4.62 10^6/uL (4.30-6.10); RED CELL DISTRIBUTION WIDTH 18.6 % (11.5-14.5)
[2017-11-19 07:01] LABS: ALBUMIN 2.5 GM/DL (3.2-5.2); ALBUMIN/GLOBULIN RATIO 0.63 (1.00-1.93); ALKALINE PHOSPHATASE 72 U/L (45-117); ALT/SGPT 34 U/L (12-78); ANION GAP 7 MEQ/L (8-16); AST/SGOT 11 U/L (7-37); BILIRUBIN,TOTAL 0.3 MG/DL (0.2-1.0); BLOOD UREA NITROGEN 12 MG/DL (7-18); CALCIUM LEVEL 9.6 MG/DL (8.8-10.2); CARBON DIOXIDE LEVEL 31 MEQ/L (21-32); CHLORIDE LEVEL 104 MEQ/L (98-107); CREATININE FOR GFR 0.61 MG/DL (0.70-1.30); GLOMERULAR FILTRATION RATE > 60.0 (>49); GLUCOSE, FASTING 90 MG/DL (70-100); MAGNESIUM LEVEL 1.8 MG/DL (1.8-2.4); POTASSIUM SERUM 4.4 MEQ/L (3.5-5.1); SODIUM LEVEL 142 MEQ/L (136-145); TOTAL PROTEIN 6.5 GM/DL (6.4-8.2)
[2017-11-19] MEDS: IPRATROPIUM 0.5MG/ALBUTEROL 2.5MG INH SOL UD 3ML (DUONEB)(J7620) NEB ×3 (08:00→16:00)
[2017-11-19] MEDS: SYMBICORT 160/4.5MCG INHALER 6GM INH ×2 (08:04→19:21)
[2017-11-19] MEDS: METAMUCIL (PSYLLIUM) PACKET PO ×2 (08:21→20:33)
[2017-11-19] MEDS: APIXABAN 5 MG TAB (ELIQUIS) PO ×2 (08:21→20:32)
[2017-11-19] MEDS: LOMOTIL 2.5MG/0.025MG TABLET PO ×4 (08:21→20:32)
[2017-11-19] MEDS: FOLIC ACID 1 MG TAB PO (08:22)
[2017-11-19] MEDS: MAGNESIUM OXIDE 400 MG TAB (MAG-OX) PO ×3 (08:22→20:33)
[2017-11-19] MEDS: FAMOTIDINE 20 MG TAB PO ×2 (08:22→20:33)
[2017-11-19] MEDS: FERROUS SULFATE 325MG TAB PO (08:22)
[2017-11-19] MEDS: predniSONE 5 MG TAB PO ×3 (08:22→20:32)
[2017-11-19] MEDS: LOPERAMIDE 2 MG CAP PO ×4 (08:23→20:32)
[2017-11-19] MEDS: GABAPENTIN 300 MG CAP PO ×3 (08:23→20:33)
[2017-11-19] MEDS: FLUTICASONE PROP 0.05% NASAL SPRAY 16 GM (FLONASE) (08:23)
[2017-11-19] MEDS: SALIVA SUBSTITUTE(MOUTHKOTE) BTL MT ×3 (08:24→20:32)
[2017-11-19] MEDS: NICOTINE 14 MG/24 HR TRANSDERMAL TD (20:34)
[2017-11-20] MEDS: ONDANSETRON 4 MG TAB (S0181) PO ×3 (05:27→17:40)
[2017-11-20] MEDS: oxyCODONE 5MG TAB PO ×3 (06:24→21:04)
[2017-11-20 07:10] LABS: HEMATOCRIT 41.4 % (42.0-52.0); HEMOGLOBIN 12.6 g/dl (13.5-17.5); MEAN CORPUSCULAR HEMOGLOBIN 25.6 pg (27.0-33.0); MEAN CORPUSCULAR HGB CONC 30.4 g/dl (32.0-36.5); MEAN CORPUSCULAR VOLUME 84.1 fl (80.0-96.0); PLATELET COUNT, AUTOMATED 359 10^3/uL (150-450); RED BLOOD COUNT 4.92 10^6/uL (4.30-6.10); RED CELL DISTRIBUTION WIDTH 18.6 % (11.5-14.5); WHITE BLOOD COUNT 11.7 10^3/uL (4.0-10.0)
[2017-11-20] MEDS: LOMOTIL 2.5MG/0.025MG TABLET PO ×4 (07:35→20:59)
[2017-11-20] MEDS: LOPERAMIDE 2 MG CAP PO ×4 (07:36→20:59)
[2017-11-20] MEDS: IPRATROPIUM 0.5MG/ALBUTEROL 2.5MG INH SOL UD 3ML (DUONEB)(J7620) NEB ×4 (07:43→20:00)
[2017-11-20] MEDS: SYMBICORT 160/4.5MCG INHALER 6GM INH ×2 (07:43→21:28)
[2017-11-20 07:56] LABS: ALBUMIN 2.9 GM/DL (3.2-5.2); ALBUMIN/GLOBULIN RATIO 0.73 (1.00-1.93); ALKALINE PHOSPHATASE 85 U/L (45-117); ALT/SGPT 35 U/L (12-78); ANION GAP 7 MEQ/L (8-16); AST/SGOT 13 U/L (7-37); BILIRUBIN,TOTAL 0.4 MG/DL (0.2-1.0); BLOOD UREA NITROGEN 11 MG/DL (7-18); CALCIUM LEVEL 9.6 MG/DL (8.8-10.2); CARBON DIOXIDE LEVEL 32 MEQ/L (21-32); CHLORIDE LEVEL 103 MEQ/L (98-107); CREATININE FOR GFR 0.64 MG/DL (0.70-1.30); GLOMERULAR FILTRATION RATE > 60.0 (>49); GLUCOSE, FASTING 77 MG/DL (70-100); MAGNESIUM LEVEL 1.7 MG/DL (1.8-2.4); POTASSIUM SERUM 4.2 MEQ/L (3.5-5.1); SODIUM LEVEL 142 MEQ/L (136-145); TOTAL PROTEIN 6.9 GM/DL (6.4-8.2)
[2017-11-20] MEDS: SALIVA SUBSTITUTE(MOUTHKOTE) BTL MT ×3 (09:31→20:59)
[2017-11-20] MEDS: METAMUCIL (PSYLLIUM) PACKET PO ×2 (09:31→21:00)
[2017-11-20] MEDS: FLUTICASONE PROP 0.05% NASAL SPRAY 16 GM (FLONASE) (09:31)
[2017-11-20] MEDS: GABAPENTIN 300 MG CAP PO ×3 (09:31→21:00)
[2017-11-20] MEDS: FOLIC ACID 1 MG TAB PO (09:32)
[2017-11-20] MEDS: FAMOTIDINE 20 MG TAB PO ×2 (09:32→21:00)
[2017-11-20] MEDS: predniSONE 5 MG TAB PO ×3 (09:32→20:59)
[2017-11-20] MEDS: FERROUS SULFATE 325MG TAB PO (09:32)
[2017-11-20] MEDS: APIXABAN 5 MG TAB (ELIQUIS) PO ×2 (09:32→20:59)
[2017-11-20] MEDS: MAGNESIUM OXIDE 400 MG TAB (MAG-OX) PO ×4 (09:32→21:00)
[2017-11-20] MEDS: MAG SULF 1GM/100ML (MAG RUN) 1 GM in APPROPRIATE DILUENT 1 EA IV ×2 (10:56→14:28)
[2017-11-20] MEDS: SIMETHICONE 80 MG CHEW TAB PO ×2 (14:54→18:23)
[2017-11-20] MEDS ORDERED: SLF 3 ML SYR IV (16:00)
[2017-11-20] MEDS: NICOTINE 14 MG/24 HR TRANSDERMAL TD (21:01)
[2017-11-20] MEDS: SLF 3 ML SYR IV (21:02)
[2017-11-21] MEDS: oxyCODONE 5MG TAB PO ×4 (02:42→22:37)
[2017-11-21] MEDS: SLF 3 ML SYR IV ×3 (06:00→21:04)
[2017-11-21 06:49] LABS: BASO % 0.2 % (0.0-1.0); EOS % 0.3 % (0.0-3.0); HEMATOCRIT 41.1 % (42.0-52.0); HEMOGLOBIN 12.5 g/dl (13.5-17.5); IMMATURE GRANULOCYTE % 0.7 % (0-3.0); LYMPH # 1.6 10^3/uL (1.5-4.5); MEAN CORPUSCULAR HEMOGLOBIN 25.7 pg (27.0-33.0); MEAN CORPUSCULAR HGB CONC 30.4 g/dl (32.0-36.5); MEAN CORPUSCULAR VOLUME 84.4 fl (80.0-96.0); MONO # 0.7 10^3/uL (0.0-0.8); NEUTROPHILS # 9.8 10^3/uL (1.8-7.7); NEUTROPHILS % 79.8 % (36.0-66.0); PLATELET COUNT, AUTOMATED 308 10^3/uL (150-450); RED BLOOD COUNT 4.87 10^6/uL (4.30-6.10); RED CELL DISTRIBUTION WIDTH 18.6 % (11.5-14.5); WHITE BLOOD COUNT 12.3 10^3/uL (4.0-10.0)
[2017-11-21 07:08] LABS: ALBUMIN 2.7 GM/DL (3.2-5.2); ALBUMIN/GLOBULIN RATIO 0.64 (1.00-1.93); ALKALINE PHOSPHATASE 77 U/L (45-117); ALT/SGPT 34 U/L (12-78); ANION GAP 5 MEQ/L (8-16); AST/SGOT 17 U/L (7-37); BILIRUBIN,TOTAL 0.4 MG/DL (0.2-1.0); BLOOD UREA NITROGEN 9 MG/DL (7-18); CALCIUM LEVEL 9.5 MG/DL (8.8-10.2); CARBON DIOXIDE LEVEL 31 MEQ/L (21-32); CHLORIDE LEVEL 104 MEQ/L (98-107); CREATININE FOR GFR 0.61 MG/DL (0.70-1.30); GLOMERULAR FILTRATION RATE > 60.0 (>49); GLUCOSE, FASTING 83 MG/DL (70-100); MAGNESIUM LEVEL 1.9 MG/DL (1.8-2.4); POTASSIUM SERUM 4.3 MEQ/L (3.5-5.1); SODIUM LEVEL 140 MEQ/L (136-145); TOTAL PROTEIN 6.9 GM/DL (6.4-8.2)
[2017-11-21] MEDS: IPRATROPIUM 0.5MG/ALBUTEROL 2.5MG INH SOL UD 3ML (DUONEB)(J7620) NEB ×4 (08:00→20:00)
[2017-11-21] MEDS: METAMUCIL (PSYLLIUM) PACKET PO ×2 (08:12→20:43)
[2017-11-21] MEDS: LOMOTIL 2.5MG/0.025MG TABLET PO ×4 (08:13→20:44)
[2017-11-21] MEDS: LOPERAMIDE 2 MG CAP PO ×4 (08:13→20:44)
[2017-11-21] MEDS: APIXABAN 5 MG TAB (ELIQUIS) PO ×2 (08:13→20:44)
[2017-11-21] MEDS: FOLIC ACID 1 MG TAB PO (08:13)
[2017-11-21] MEDS: FAMOTIDINE 20 MG TAB PO ×2 (08:13→20:44)
[2017-11-21] MEDS: GABAPENTIN 300 MG CAP PO ×3 (08:13→20:44)
[2017-11-21] MEDS: predniSONE 5 MG TAB PO ×3 (08:13→20:44)
[2017-11-21] MEDS: FERROUS SULFATE 325MG TAB PO (08:13)
[2017-11-21] MEDS: MAGNESIUM OXIDE 400 MG TAB (MAG-OX) PO ×4 (08:13→20:44)
[2017-11-21] MEDS: SYMBICORT 160/4.5MCG INHALER 6GM INH ×2 (08:15→20:48)
[2017-11-21] MEDS: FLUTICASONE PROP 0.05% NASAL SPRAY 16 GM (FLONASE) (08:20)
[2017-11-21] MEDS: SALIVA SUBSTITUTE(MOUTHKOTE) BTL MT ×3 (08:20→20:45)
[2017-11-21] MEDS: MECLIZINE 25 MG TABLET PO ×2 (12:18→20:51)
[2017-11-21] MEDS: NICOTINE 14 MG/24 HR TRANSDERMAL TD (20:43)
[2017-11-22] MEDS: SLF 3 ML SYR IV ×3 (06:00→22:00)
[2017-11-22 07:16] LABS: HEMATOCRIT 38.5 % (42.0-52.0); HEMOGLOBIN 11.8 g/dl (13.5-17.5); MEAN CORPUSCULAR HGB CONC 30.6 g/dl (32.0-36.5); MEAN CORPUSCULAR VOLUME 84.8 fl (80.0-96.0); PLATELET COUNT, AUTOMATED 293 10^3/uL (150-450); RED BLOOD COUNT 4.54 10^6/uL (4.30-6.10); RED CELL DISTRIBUTION WIDTH 18.3 % (11.5-14.5); WHITE BLOOD COUNT 10.6 10^3/uL (4.0-10.0)
[2017-11-22 08:00] LABS: ALBUMIN 2.7 GM/DL (3.2-5.2); ALBUMIN/GLOBULIN RATIO 0.82 (1.00-1.93); ALKALINE PHOSPHATASE 73 U/L (45-117); ALT/SGPT 31 U/L (12-78); ANION GAP 8 MEQ/L (8-16); AST/SGOT 11 U/L (7-37); BILIRUBIN,TOTAL 0.4 MG/DL (0.2-1.0); BLOOD UREA NITROGEN 10 MG/DL (7-18); CALCIUM LEVEL 9.3 MG/DL (8.8-10.2); CARBON DIOXIDE LEVEL 32 MEQ/L (21-32); CHLORIDE LEVEL 103 MEQ/L (98-107); CREATININE FOR GFR 0.68 MG/DL (0.70-1.30); GLOMERULAR FILTRATION RATE > 60.0 (>49); GLUCOSE, FASTING 78 MG/DL (70-100); MAGNESIUM LEVEL 1.8 MG/DL (1.8-2.4); POTASSIUM SERUM 4.7 MEQ/L (3.5-5.1); SODIUM LEVEL 143 MEQ/L (136-145)
[2017-11-22] MEDS: IPRATROPIUM 0.5MG/ALBUTEROL 2.5MG INH SOL UD 3ML (DUONEB)(J7620) NEB (08:00)
[2017-11-22] MEDS: METAMUCIL (PSYLLIUM) PACKET PO ×2 (08:24→20:44)
[2017-11-22] MEDS: FAMOTIDINE 20 MG TAB PO ×2 (08:25→20:45)
[2017-11-22] MEDS: LOMOTIL 2.5MG/0.025MG TABLET PO ×4 (08:25→20:44)
[2017-11-22] MEDS: MECLIZINE 25 MG TABLET PO (08:25)
[2017-11-22] MEDS: predniSONE 5 MG TAB PO ×3 (08:25→20:44)
[2017-11-22] MEDS: LOPERAMIDE 2 MG CAP PO ×4 (08:25→20:44)
[2017-11-22] MEDS: APIXABAN 5 MG TAB (ELIQUIS) PO ×2 (08:25→20:45)
[2017-11-22] MEDS: FOLIC ACID 1 MG TAB PO (08:26)
[2017-11-22] MEDS: FERROUS SULFATE 325MG TAB PO (08:26)
[2017-11-22] MEDS: FLUTICASONE PROP 0.05% NASAL SPRAY 16 GM (FLONASE) (08:26)
[2017-11-22] MEDS: GABAPENTIN 300 MG CAP PO ×3 (08:26→20:44)
[2017-11-22] MEDS: MAGNESIUM OXIDE 400 MG TAB (MAG-OX) PO ×4 (08:26→20:44)
[2017-11-22] MEDS: oxyCODONE 5MG TAB PO ×3 (08:29→22:58)
[2017-11-22] MEDS: SALIVA SUBSTITUTE(MOUTHKOTE) BTL MT ×3 (08:29→20:45)
[2017-11-22] MEDS: SYMBICORT 160/4.5MCG INHALER 6GM INH ×2 (09:00→21:12)
[2017-11-22] MEDS ORDERED: MECLIZINE 25 MG TABLET PO (10:30)
[2017-11-22] MEDS: NICOTINE 14 MG/24 HR TRANSDERMAL TD (20:44)
[2017-11-23] MEDS: ONDANSETRON 4MG/2ML VIAL (J2405) IV ×2 (03:41→18:13)
[2017-11-23] MEDS: SLF 3 ML SYR IV ×3 (06:00→21:47)
[2017-11-23] MEDS: oxyCODONE 5MG TAB PO ×2 (06:12→21:48)
[2017-11-23 07:03] LABS: HEMATOCRIT 40.4 % (42.0-52.0); HEMOGLOBIN 12.5 g/dl (13.5-17.5); MEAN CORPUSCULAR HGB CONC 30.9 g/dl (32.0-36.5); MEAN CORPUSCULAR VOLUME 84.2 fl (80.0-96.0); PLATELET COUNT, AUTOMATED 345 10^3/uL (150-450); RED CELL DISTRIBUTION WIDTH 18.4 % (11.5-14.5); WHITE BLOOD COUNT 12.2 10^3/uL (4.0-10.0)
[2017-11-23 07:35] LABS: ALBUMIN 2.8 GM/DL (3.2-5.2); ALBUMIN/GLOBULIN RATIO 0.65 (1.00-1.93); ALKALINE PHOSPHATASE 76 U/L (45-117); ALT/SGPT 30 U/L (12-78); ANION GAP 8 MEQ/L (8-16); AST/SGOT 15 U/L (7-37); BILIRUBIN,TOTAL 0.5 MG/DL (0.2-1.0); BLOOD UREA NITROGEN 10 MG/DL (7-18); CALCIUM LEVEL 9.5 MG/DL (8.8-10.2); CARBON DIOXIDE LEVEL 31 MEQ/L (21-32); CHLORIDE LEVEL 103 MEQ/L (98-107); CREATININE FOR GFR 0.68 MG/DL (0.70-1.30); GLOMERULAR FILTRATION RATE > 60.0 (>49); GLUCOSE, FASTING 81 MG/DL (70-100); MAGNESIUM LEVEL 1.7 MG/DL (1.8-2.4); POTASSIUM SERUM 4.1 MEQ/L (3.5-5.1); SODIUM LEVEL 142 MEQ/L (136-145); TOTAL PROTEIN 7.1 GM/DL (6.4-8.2)
[2017-11-23] MEDS: GABAPENTIN 300 MG CAP PO ×3 (08:26→21:46)
[2017-11-23] MEDS: MAGNESIUM OXIDE 400 MG TAB (MAG-OX) PO ×4 (08:26→21:46)
[2017-11-23] MEDS: FOLIC ACID 1 MG TAB PO (08:26)
[2017-11-23] MEDS: METAMUCIL (PSYLLIUM) PACKET PO ×2 (08:26→21:00)
[2017-11-23] MEDS: LOMOTIL 2.5MG/0.025MG TABLET PO ×4 (08:26→21:46)
[2017-11-23] MEDS: FERROUS SULFATE 325MG TAB PO (08:26)
[2017-11-23] MEDS: predniSONE 5 MG TAB PO ×3 (08:27→21:45)
[2017-11-23] MEDS: APIXABAN 5 MG TAB (ELIQUIS) PO ×2 (08:27→21:46)
[2017-11-23] MEDS: LOPERAMIDE 2 MG CAP PO ×4 (08:27→21:45)
[2017-11-23] MEDS: FAMOTIDINE 20 MG TAB PO ×2 (08:27→21:46)
[2017-11-23] MEDS: MECLIZINE 25 MG TABLET PO (08:27)
[2017-11-23] MEDS: FLUTICASONE PROP 0.05% NASAL SPRAY 16 GM (FLONASE) (08:27)
[2017-11-23] MEDS: SALIVA SUBSTITUTE(MOUTHKOTE) BTL MT ×3 (08:28→21:00)
[2017-11-23] MEDS ORDERED: PILL CRUSHER/CUTTER 1 EACH XX (11:00)
[2017-11-23] MEDS: MAG SULF 1GM/100ML (MAG RUN) 1 GM in APPROPRIATE DILUENT 1 EA IV ×2 (12:20→13:30)
[2017-11-23] MEDS: SYMBICORT 160/4.5MCG INHALER 6GM INH ×2 (13:13→21:00)
[2017-11-23] MEDS: NICOTINE 14 MG/24 HR TRANSDERMAL TD (21:45)
[2017-11-24] MEDS: ONDANSETRON 4MG/2ML VIAL (J2405) IV (05:45)
[2017-11-24] MEDS: MECLIZINE 25 MG TABLET PO (05:46)
[2017-11-24] MEDS: oxyCODONE 5MG TAB PO (05:47)
[2017-11-24] MEDS: SLF 3 ML SYR IV (05:47)
[2017-11-24 07:05] LABS: HEMATOCRIT 41.6 % (42.0-52.0); HEMOGLOBIN 12.4 g/dl (13.5-17.5); MEAN CORPUSCULAR HEMOGLOBIN 25.4 pg (27.0-33.0); MEAN CORPUSCULAR HGB CONC 29.8 g/dl (32.0-36.5); MEAN CORPUSCULAR VOLUME 85.1 fl (80.0-96.0); PLATELET COUNT, AUTOMATED 315 10^3/uL (150-450); RED BLOOD COUNT 4.89 10^6/uL (4.30-6.10); RED CELL DISTRIBUTION WIDTH 18.4 % (11.5-14.5); WHITE BLOOD COUNT 10.1 10^3/uL (4.0-10.0)
[2017-11-24 07:17] LABS: ALBUMIN 2.8 GM/DL (3.2-5.2); ALBUMIN/GLOBULIN RATIO 0.68 (1.00-1.93); ALKALINE PHOSPHATASE 74 U/L (45-117); ALT/SGPT 30 U/L (12-78); ANION GAP 7 MEQ/L (8-16); AST/SGOT 14 U/L (7-37); BILIRUBIN,TOTAL 0.4 MG/DL (0.2-1.0); BLOOD UREA NITROGEN 10 MG/DL (7-18); CALCIUM LEVEL 9.1 MG/DL (8.8-10.2); CARBON DIOXIDE LEVEL 30 MEQ/L (21-32); CHLORIDE LEVEL 105 MEQ/L (98-107); CREATININE FOR GFR 0.63 MG/DL (0.70-1.30); GLOMERULAR FILTRATION RATE > 60.0 (>49); GLUCOSE, FASTING 79 MG/DL (70-100); MAGNESIUM LEVEL 2.1 MG/DL (1.8-2.4); POTASSIUM SERUM 3.7 MEQ/L (3.5-5.1); SODIUM LEVEL 142 MEQ/L (136-145); TOTAL PROTEIN 6.9 GM/DL (6.4-8.2)
[2017-11-24] MEDS: LOPERAMIDE 2 MG CAP PO (08:38)
[2017-11-24] MEDS: METAMUCIL (PSYLLIUM) PACKET PO (08:38)
[2017-11-24] MEDS: FOLIC ACID 1 MG TAB PO (08:38)
[2017-11-24] MEDS: MAGNESIUM OXIDE 400 MG TAB (MAG-OX) PO (08:38)
[2017-11-24] MEDS: LOMOTIL 2.5MG/0.025MG TABLET PO (08:38)
[2017-11-24] MEDS: FAMOTIDINE 20 MG TAB PO (08:38)
[2017-11-24] MEDS: GABAPENTIN 300 MG CAP PO (08:38)
[2017-11-24] MEDS: predniSONE 5 MG TAB PO (08:39)
[2017-11-24] MEDS: APIXABAN 5 MG TAB (ELIQUIS) PO (08:39)
[2017-11-24] MEDS: FERROUS SULFATE 325MG TAB PO (08:39)
[2017-11-24] MEDS: SALIVA SUBSTITUTE(MOUTHKOTE) BTL MT (08:40)
[2017-11-24] MEDS: FLUTICASONE PROP 0.05% NASAL SPRAY 16 GM (FLONASE) (08:40)
[2017-11-24] MEDS: SYMBICORT 160/4.5MCG INHALER 6GM INH (08:57)
== END 2017-11-24 11:30 | disposition home health service (06) | DRG 948 ==
LOC: M PM&R 13:10
DX: R53.81 Other malaise (principal); I50.32 Chronic diastolic (congestive) heart failure; G93.89 Other specified disorders of brain; I48.91 Unspecified atrial fibrillation; K21.9 Gastro-esophageal reflux disease without esophagitis; Z66 Do not resuscitate; D72.829 Elevated white blood cell count, unspecified; E83.42 Hypomagnesemia; R11.2 Nausea with vomiting, unspecified; H02.409 Unspecified ptosis of unspecified eyelid; J44.9 Chronic obstructive pulmonary disease, unspecified; E87.8 Other disorders of electrolyte and fluid balance, not elsewhere classified; E11.40 Type 2 diabetes mellitus with diabetic neuropathy, unspecified; G47.00 Insomnia, unspecified; J30.9 Allergic rhinitis, unspecified; M10.9 Gout, unspecified; M21.379 Foot drop, unspecified foot; M19.90 Unspecified osteoarthritis, unspecified site; M48.02 Spinal stenosis, cervical region; M48.061 Spinal stenosis, lumbar region without neurogenic claudication; D64.9 Anemia, unspecified; Z79.52 Long term (current) use of systemic steroids; Z93.2 Ileostomy status; Z87.891 Personal history of nicotine dependence; Z86.711 Personal history of pulmonary embolism; Z79.01 Long term (current) use of anticoagulants; Z79.899 Other long term (current) drug therapy

== ENCOUNTER → 2018-01-04 | Outpatient (CLI) | payer MEDICARE | LOC: M PAIN 13:45 | DX: M51.26 Other intervertebral disc displacement, lumbar region (principal); R25.2 Cramp and spasm; I73.9 Peripheral vascular disease, unspecified; M79.605 Pain in left leg; M79.604 Pain in right leg; I10 Essential (primary) hypertension; I48.91 Unspecified atrial fibrillation; J44.9 Chronic obstructive pulmonary disease, unspecified; K21.9 Gastro-esophageal reflux disease without esophagitis; D64.9 Anemia, unspecified; Z79.01 Long term (current) use of anticoagulants; Z79.899 Other long term (current) drug therapy; Z87.891 Personal history of nicotine dependence; Z87.39 Personal history of other diseases of the musculoskeletal system and connective tissue; Z86.73 Personal history of transient ischemic attack (TIA), and cerebral infarction without residual deficits; Z86.69 Personal history of other diseases of the nervous system and sense organs | CPT/HCPCS: G0463 ==

== ENCOUNTER → 2018-03-08 | Outpatient (CLI) | payer MEDICARE, MEDICAID | LOC: M RAD 11:13 | DX: I73.9 Peripheral vascular disease, unspecified (principal) | CPT/HCPCS: 93925 ==

== ENCOUNTER → 2018-03-22 | Outpatient (REF) | payer MEDICARE, MEDICAID ==
[2018-03-22 18:32] LABS: CREATININE,RANDOM URINE 57.9 MG/DL
[2018-03-22 18:32] LABS: MAGNESIUM URINE RANDOM 0.3 MG/DL
== END ==
LOC: M LAB REF 17:22
DX: E83.42 Hypomagnesemia (principal); N18.2 Chronic kidney disease, stage 2 (mild)
CPT/HCPCS: 83735

== ENCOUNTER → 2018-04-05 | Outpatient (CLI) | payer MEDICARE, MEDICAID | LOC: M PAIN 09:00 | DX: M51.26 Other intervertebral disc displacement, lumbar region (principal); R25.2 Cramp and spasm; I73.9 Peripheral vascular disease, unspecified; M79.605 Pain in left leg; M79.604 Pain in right leg; I10 Essential (primary) hypertension; I48.91 Unspecified atrial fibrillation; J44.9 Chronic obstructive pulmonary disease, unspecified; F41.9 Anxiety disorder, unspecified; Z79.01 Long term (current) use of anticoagulants; Z79.899 Other long term (current) drug therapy; Z87.891 Personal history of nicotine dependence; Z87.39 Personal history of other diseases of the musculoskeletal system and connective tissue; Z86.73 Personal history of transient ischemic attack (TIA), and cerebral infarction without residual deficits; Z98.890 Other specified postprocedural states | CPT/HCPCS: G0463 ==

== ENCOUNTER → 2018-06-29 | Outpatient (CLI) | payer MEDICARE, MEDICAID ==
[~2018-06-29] MED LIST changes: +ALBU83IN INH; -ALBUTEROL SULFATE 2.5 MG/0.5 ML INH NEB SOLN INH; +CHOL4PW PO; +DIPH2.5T14 PO; +ELIQ5TAB PO; +FAMO1TAB11 PO; +FERR1TAB8 PO; +FLUTISP; +FOLI1TAB11 PO; +GABA-843 PO; +GABA600T4 PO; +IPRA0.00 INH; +LASI40TA9 PO; +LOMO2.5T PO; +LOPE2CAP PO; +MAG400TA PO; +MAGN500T6 PO; +MAGN64TASA PO; +MECL-68 PO; +META48.54 PO; +METAPKT PO; +MOUKOT60 MT; +NEUR300C PO; +NICO14PA TD; +NICO21DI34 TD; +NICO21DI6 TD; +OCEA0.654; +OXYC-517 PO; +OXYCO5TA PO; +PERC5TAB12 PO; +POTA20EL PO; +PRED5TA PO; +PROT1TAB2 PO; +REFR0.1D OU; +SIME80TA PO; -SODIUM CHLORIDE NASAL 0.65% SPRAY BTL (OCEAN); +SYMB16INH INH; +TRAZ-160 PO; +TRAZ25TA PO; +TYLE325T5 PO; +ZOFR4SOL PO; +ZOFR4TAB16 PO; +[UNRECOGNIZED DRUG - CODE] IV
--- NOTE | 2018-07-14 01:18 | ECWPNPC ---
PATIENT NAME: CHIRAG PIERRE : 1950 GENDER: MALE VISIT DATE: 06/29/2018 DISCHARGE DATE: 06/29/18 1131 VISIT LOCKED DATE TIME: PHYSICIAN: TAVO PATEL RESOURCE: TAVO PATEL REASON FOR APPOINTMENT 1. LEG PAIN, MED MAINAGEMENT HISTORY OF PRESENT ILLNESS HISTORY OF PRESENT ILLNESS: HERE FOR F/U OF SEVERE NEUROPATHY OF LOWER EXTREMITIES.RATING PAIN VAS 8/10.DISCUSSED MEDICATION OPTIONS.FINDS CURRENT MEDICATION ONLY MARGINALLY EFFECTIVE. PAIN THE PATIENT DESCRIBES THE PAIN... FALL RISK SCREENING: SCREENING :NO FALLS IN THE PAST YEAR CURRENT MEDICATIONS TAKING LOPERAMIDE HCL 2 MG CAPSULE TAKE 2 CAPSULES BY MOUTH 4 TIMES DAILY ORAL TAKING ELIQUIS 5 MG TABLET 1 CAP ORAL BID TAKING MAGNESIUM OXIDE 400 (241.3 MG) MG TABLET TAKE 2 TABLET BY MOUTH ONCE DAILY ORAL FOUR TIMES DAILY TAKING PANTOPRAZOLE SODIUM 40 MG TABLET DELAYED RELEASE ORAL TAKING DIPHENOXYLATE-ATROPINE 2.5-0.025 MG TABLET (SCHEDULE V DRUG) TAKE 2 TABLETS BY MOUTH FOUR TIMES A DAY MAXIMUM DAILY DOSE OF 8 ORAL TAKING FOLIC ACID 1 MG TABLET TAKE 1 TABLET BY MOUTH ONCE DAILY ORAL TAKING PREDNISONE 5 MG TABLET TAKE 3 TABLETS BY MOUTH DAILY ORAL TAKING ONDANSETRON 4MG ORAL NEEDED TAKING PROVENTIL 3 MLS INHALED EVERY 4 HOURS NEEDED TAKING SYMBICORT 160-4.5 MCG/ACT AEROSOL 2 PUFFS INHALATION TWICE A DAY TAKING PSYLLIUM 28 % PACKET 1 PACKET WITH 8 OUNCES OF LIQUID NEEDED ORALLY BID TAKING NICOTINE 21 MG/24HR PATCH 24 HOUR APPLY ONE PATCH TO SKIN DAILY TRANSDERMAL TAKING BACLOFEN 10 MG TABLET 1 TABLET WITH FOOD OR MILK ORALLY THREE TIMES A DAY TAKING OXYCODONE-ACETAMINOPHEN 5-325 MG TABLET 1 TABLET NEEDED ORALLY Q 6-8 HRS PRN PAIN MDD3 TAKING FUROSEMIDE 20 MG TABLET 1 TABLET ORALLY ONCE A DAY NOT-TAKING FAMOTIDINE 20 MG TABLET TAKE 1 TABLET BY MOUTH TWICE A DAY ORAL NOT-TAKING FERROUS SULFATE 325 (65 FE) MG TABLET TAKE 1 TABLET BY MOUTH ONCE DAILY ORAL NOT-TAKING TRAZODONE HCL 50 MG TABLET TAKE 1 TABLET BY MOUTH AT BEDTIME IF NEEDED FOR SLEEP ORAL NOT-TAKING OCEAN NASAL SPRAY 0.65 % SOLUTION 2 SPRAYS IN EACH NOSTRIL NEEDED NASALLY EVERY 2 HRS NOT-TAKING TRAMADOL HCL 50 MG TABLET (SCHEDULE IV DRUG) TAKE 1 TABLET BY MOUTH TWICE A DAY WITH TYLENOL 325 MG IF NEEDED ... (REFER TO PRESCRIPTION NOTES). ORAL NOT-TAKING MECLIZINE HCL 25 MG TABLET TAKE 1 TABLET BY MOUTH THREE TIMES A DAY FOR DIZZINESS CRUSH TABLET.GIVE WITH APPLESAUCE/WATER ORAL NOT-TAKING GABAPENTIN 300 MG CAPSULE TAKE 3 CAPSULES IN THE MORNING,2 CAPSULES IN THE AFTERNOON,AND 3 CAPSULES AT BEDTIME ORAL MEDICATION LIST REVIEWED AND RECONCILED WITH THE PATIENT PAST MEDICAL HISTORY HTN, AFIB ON ELIQUIS GOUT OPEN ABDOMINAL WOUND CVA COPD ON HOME O2 ANXIETY SEPTIC SHOCK WITH ACUTE KIDNEY FAILURE ILEOSTOMY HAS HAD RHABDO , HAS FOOT DROP ALLERGIES N.K.D.A. SURGICAL HISTORY ILEOCECAL RESECTION WITH PROLONGED STAY DUE TO WOUND DEHISCENCE 2017 BACK SURGERY X 3 BOWEL ENTERCTOMY - TOTAL OF 3 ABDOMINAL SURGERIES 2018 COLONOSCOPY WITH BIOPSY 06/2018 FAMILY HISTORY FATHER: , DIAGNOSED WITH HEART DISEASE, CANCER MOTHER: , DIAGNOSED WITH CANCER SIBLINGS: DIAGNOSED WITH HEART DISEASE SOCIAL HISTORY GENERAL: TOBACCO USE ARE YOU A:CURRENT SMOKER ALSO USES THE PATCH TO HELP TRY TO QUIT. ARE YOU INTERESTED IN QUITTING?READY TO QUIT COUNSELED THE PATIENT ON TOBACCO USE, CESSATION [id number]/24/2019 HOW OFTEN DO YOU SMOKE CIGARETTES?SOME DAYS, BUT NOT EVERY DAY PATIENT COUNSELED ON THE DANGERS OF TOBACCO USE AND URGED TO QUIT:06/29/2018 ALCOHOL SCREENING DID YOU HAVE A DRINK CONTAINING ALCOHOL IN THE PAST YEAR?YES POINTS0 INTERPRETATIONNEGATIVE RECREATIONAL DRUG USE DRUG USE?NO CAFFEINE CAFFEINE USE?YES HOW OFTEN AND HOW MUCH? COFFEE NOT QUITE DAILY PROTESTANT [id number] [employer] WITNESS LANGUAGE LANGUAGES SPOKEN:LIBERIAN LEARNING BARRIERS / SPECIAL NEEDS HEARING IMPAIRED?YES VISION IMPAIRED?YES :CORRECTIVE LENSES READINESS TO LEARN?YES LEARNING PREFERENCES?NO SPECIAL DEVICES?YES :WHEELCHAIR DIET: NO ADDED SALT. PAIN CLINIC PFS, CLERGY, PUBLIC HEALTH REFERRALS PFS REFERRAL NEEDED?NO CLERGY REFERRAL NEEDED?NO PUBLIC HEALTH REFERRAL NEEDED?NO WAS THE PROVIDER NOTIFIED OF ANY PERTINENT INFO?NO HAS THE PATIENT BEEN EDUCATED REGARDING HIS/HER PLAN OF CARE?YES HAS THE PATIENT BEEN EDUCATED REGARDING PAIN, THE RISK FOR PAIN, THE IMPORTANCE OF EFFECTIVE PAIN MANAGEMENT, AND THE PAIN ASSESSMENT PROCESS?YES ADVANCE DIRECTIVE ADVANCE DIRECTIVE DISCUSSED WITH PATIENT:YES HCP - JEN FISHER (DAUGHTER) QUIT SMOKING AND ALCOHOL DUE TO HEALTHREVIEWED WITH PATIENT 06/29/18 0975 JS. HOSPITALIZATION/MAJOR DIAGNOSTIC PROCEDURE SEE ABOVE 78 DAYS IN [facility] REVIEW OF SYSTEMS REVIEWED BY: PROVIDER: TAVO SCOTT . CONSTITUTIONAL: ANY CHANGE IN YOUR MEDICAL CONDITION? NO . CHILLS NO . FEVER NO . INFECTION: DO YOU HAVE NEW INFECTIONS? NO . DO YOU HAVE HISTORY OF MRSA? NO . MUSCULOSKELETAL: ANY NEW PATTERNS OF PAIN OR NUMBNESS? YES, PAIN WORSENING, CRAMPS AND SHARP SHOOTING PAINS IN LEGS . GASTROENTEROLOGY: ANY NEW CHANGE IN BOWEL CONTROL? YES, STOOL MORE WATERY . GENITOURINARY: ANY NEW CHANGE IN BLADDER CONTROL? NO . IS THERE A CHANCE YOU COULD BE ? NO . HEMATOLOGY/LYMPH: DO YOU TAKE ANY BLOOD THINNERS? (FOR EXAMPLE- COUMADIN, PLAVIX, AGGRENOX, PLATEL, PRADAXA, OR XARELTO) YES, ELIQUIS . WHEN WAS YOUR LAST DOSE? DATE: 06/29/18 TIME: 0500 . NEUROLOGY: HAVE YOU FALLEN IN THE PAST 12 MONTHS? NO . ANY NEW EXTREMITY NUMBNESS OR WEAKNESS? YES, INCREASING WEAKNESS IN BILATERAL LEGS, SOME DAYS HE CANNOT STAND, PIVOT . CARDIOLOGY: DO YOU HAVE A PACEMAKER OR DEFIBRILLATOR? NO . RESPIRATORY: HAVE YOU BEEN SICK IN THE PAST WEEK? NO . FEVER NO . FLU LIKE SYMPTOMS? NO . COUGH NO . INTEGUMENTARY: DO YOU HAVE ANY RASHES OR OPEN SORES? YES, SKIN TEAR TO RIGHT HAND . ALLERGIC/IMMUNO: ARE YOU ALLERGIC TO IV DYE? NO . ANY NEW ALLERGIES? NO . PSYCHIATRIC: DO YOU HAVE THOUGHTS OF HURTING YOURSELF OR SOMEONE ELSE? NO . ARE YOU ABUSED, NEGLECTED, OR IN AN UNSAFE ENVIRONMENT? NO . ENDOCRINOLOGY: ARE YOU DIABETIC? NO . OTHER: DO YOU NEED ANY PRESCRIPTIONS? YES . IF YES, PLEASE LIST: ____PERCOCET, BACLOFEN . ANY NEW PROBLEMS WITH YOUR MEDICATIONS? YES, THE MEDICATIONS DON'T ALWAYS HELP TO TAKE ANY OF THE PAIN AWAY . WHEN DID YOU LAST EAT? ____ . WHEN DID YOU LAST DRINK? ____ . WHAT DID YOU LAST DRINK? ____ . NAME OF PERSON DRIVING YOU HOME? ____ . DO YOU HAVE ANY OTHER QUESTIONS OR CONCERNS YES, STATES THAT THE PAIN SEEMS OUT OF CONTROL A LOT OF THE TIME WITH NO RELIEF . VITAL SIGNS WT 219 LBS, HT 68 IN, BMI 33.30 INDEX, BP 154/90 MM HG, HR 90 /MIN, RR 18 /MIN, TEMP 98.4 F, OXYGEN SAT % 97%, SAFE IN ENV? (Y/N) YES, NA INITIALS CT 09:45, REVIEWED BY: AIMEE. EXAMINATION GENERAL EXAMINATION: GENERAL APPEARANCE:AWAKE,ALERT ,PLEAASANT . PSYCHAFFECT NORMAL . LUNGS:LUNG REYES ARE CLEAR TO AUSCULTATION BILATERALLY. GOOD MOVEMENT OF AIR . HEART:S1, S2 IN A REGULAR RATE AND RHYTHM. NO SIGNIFICANT MURMURS, RUBS OR GALLOPS NOTED . ASSESSMENTS LUMBAR DISC DISPLACEMENT WITHOUT MYELOPATHY - M51.26 (PRIMARY) NEUROPATHY - G62.9 TREATMENT LUMBAR DISC DISPLACEMENT WITHOUT MYELOPATHY INCREASE BACLOFEN TABLET, 10 MG, 1 TABLET WITH FOOD OR MILK, ORALLY, Q6H, 30 DAY(S), 120, REFILLS 2 STOP OXYCODONE-ACETAMINOPHEN TABLET, 5-325 MG, 1 TABLET NEEDED, ORALLY, Q 6-8 HRS PRN PAIN MDD3 START NORCO TABLET, 10-325 MG, 1 TABLET NEEDED, ORALLY, EVERY 8 HRS MDD3, 30 DAY(S), 90, REFILLS 0 START BUTRANS PATCH WEEKLY, 10 MCG/HR, 1 PATCH TO SKIN, TRANSDERMAL, 1 PATCH [id number], 30 DAY(S), 4, REFILLS 2 NOTES: ISTOP REGISTRY REVIEWED AND DEMONSTRATES COMPLLIANCE. (REF # [id number] ) FORGOT TO BRING MEDICATION, RISKS AND BENEFITS OF NARCOTIC/OPIOD MEDICATIONS WERE REVIEWED WITH PATIENT - THIS INCLUDES BUT IS NOT LIMITED TO RISK OF DEPENDANCE/DEVELOPMENT OF ADDICTION, MOOD DISTURBANCE AND DEPRESSION, OSTEOPOROSIS, HORMONAL AND LABIDAL CHANGES, RESPIRATORY DEPRESSION AND . PATIENT IS ADVISED NOT TO DRIVE OR DRINK ALCOHOL WHILE ON THESE MEDICATIONS. PROCEDURE CODES FA211 ESTABILISHED PATIENT [facility] CHARGE DISPOSITION & COMMUNICATION FOLLOW UP 4-6WKS ELECTRONICALLY SIGNED BY TYLER PAINTING ON 07/13/2018 AT 01:57 PM EST DISCLAIMER : THIS IS A VISIT SUMMARY EXTRACTED FROM THE [employer] CHART. IT IS NOT A COPY OF THE [employer] PROGRESS NOTE. MARINE
== END ==
LOC: M PAIN 09:30
PROVIDERS: ATTEND Nurse Practitioner Family
DX: M51.26 Other intervertebral disc displacement, lumbar region (principal); G62.9 Polyneuropathy, unspecified; I10 Essential (primary) hypertension; I48.91 Unspecified atrial fibrillation; J44.9 Chronic obstructive pulmonary disease, unspecified; F41.9 Anxiety disorder, unspecified; F17.210 Nicotine dependence, cigarettes, uncomplicated; Z79.01 Long term (current) use of anticoagulants; Z79.899 Other long term (current) drug therapy; Z87.39 Personal history of other diseases of the musculoskeletal system and connective tissue; Z87.448 Personal history of other diseases of urinary system

== ENCOUNTER → 2018-09-06 | Outpatient (CLI) | payer MEDICARE ==
[~2018-09-06] MED LIST changes: +KONS100P6 PO; -METAPKT PO
--- NOTE | 2018-09-21 01:13 | ECWPNPC ---
PATIENT NAME: CHIRAG PIERRE : 1950 GENDER: MALE VISIT DATE: 09/06/2018 DISCHARGE DATE: 09/06/18 1225 VISIT LOCKED DATE TIME: PHYSICIAN: TAVO PATEL RESOURCE: TAVO PATEL REASON FOR APPOINTMENT 1. LEG PAIN/MED MGMT HISTORY OF PRESENT ILLNESS HISTORY OF PRESENT ILLNESS: HERE FOR F/U OF CHRONIC LOW BACK PAIN AND LOWER EXTREMITY NEUROPATHY.STARTED ON BUTRANS PATCH AT LAST VISIT.REPORTING IMPROVED OVERALL PAIN CONTROL BUT CONTINUES TO TAKE HYDROCODONE 10/325 3 TABLETS DAILY.RATING PAIN VAS 6/10.ACCOMPANIED IN EXAM ROOM WITH HIS DAUGHTER WHO IS HIS PRIMARY CARE PROVIDER.DISCUSSED TREATMENT OPTIONS.DENIES SIDE EFFECTS WITH MEDICATION .DOES NOT DEMONSTRATE ABBERANT BEHAVIOR. PAIN THE PATIENT DESCRIBES THE PAIN... FALL RISK SCREENING: SCREENING :NO FALLS REPORTED IN THE LAST YEAR CURRENT MEDICATIONS TAKING LOPERAMIDE HCL 2 MG CAPSULE TAKE 2 CAPSULES BY MOUTH 4 TIMES DAILY ORAL TAKING ELIQUIS 5 MG TABLET 1 CAP ORAL BID TAKING MAGNESIUM OXIDE 400 (241.3 MG) MG TABLET TAKE 2 TABLET BY MOUTH ONCE DAILY ORAL FOUR TIMES DAILY TAKING PANTOPRAZOLE SODIUM 40 MG TABLET DELAYED RELEASE ORAL TAKING DIPHENOXYLATE-ATROPINE 2.5-0.025 MG TABLET (SCHEDULE V DRUG) TAKE 2 TABLETS BY MOUTH FOUR TIMES A DAY MAXIMUM DAILY DOSE OF 8 ORAL TAKING FOLIC ACID 1 MG TABLET TAKE 1 TABLET BY MOUTH ONCE DAILY ORAL TAKING PREDNISONE 5 MG TABLET TAKE 3 TABLETS BY MOUTH DAILY ORAL TAKING ONDANSETRON 4MG ORAL NEEDED TAKING PROVENTIL 3 MLS INHALED EVERY 4 HOURS NEEDED TAKING SYMBICORT 160-4.5 MCG/ACT AEROSOL 2 PUFFS INHALATION TWICE A DAY TAKING PSYLLIUM 28 % PACKET 1 PACKET WITH 8 OUNCES OF LIQUID NEEDED ORALLY BID TAKING FUROSEMIDE 20 MG TABLET 1 TABLET ORALLY ONCE A DAY TAKING BUTRANS 10 MCG/HR PATCH WEEKLY 1 PATCH TO SKIN TRANSDERMAL 1 PATCH [id number] TAKING BACLOFEN 10 MG TABLET 1 TABLET WITH FOOD OR MILK ORALLY Q6H TAKING NORCO 10-325 MG TABLET 1 TABLET NEEDED ORALLY EVERY 8 HRS MDD3 TAKING CHANTIX 0.5 MG TABLET 1 TABLET ORALLY ONCE A DAY NOT-TAKING NICOTINE 21 MG/24HR PATCH 24 HOUR APPLY ONE PATCH TO SKIN DAILY TRANSDERMAL NOT-TAKING FAMOTIDINE 20 MG TABLET TAKE 1 TABLET BY MOUTH TWICE A DAY ORAL NOT-TAKING FERROUS SULFATE 325 (65 FE) MG TABLET TAKE 1 TABLET BY MOUTH ONCE DAILY ORAL NOT-TAKING TRAZODONE HCL 50 MG TABLET TAKE 1 TABLET BY MOUTH AT BEDTIME IF NEEDED FOR SLEEP ORAL NOT-TAKING OCEAN NASAL SPRAY 0.65 % SOLUTION 2 SPRAYS IN EACH NOSTRIL NEEDED NASALLY EVERY 2 HRS NOT-TAKING TRAMADOL HCL 50 MG TABLET (SCHEDULE IV DRUG) TAKE 1 TABLET BY MOUTH TWICE A DAY WITH TYLENOL 325 MG IF NEEDED ... (REFER TO PRESCRIPTION NOTES). ORAL NOT-TAKING MECLIZINE HCL 25 MG TABLET TAKE 1 TABLET BY MOUTH THREE TIMES A DAY FOR DIZZINESS CRUSH TABLET.GIVE WITH APPLESAUCE/WATER ORAL NOT-TAKING GABAPENTIN 300 MG CAPSULE TAKE 3 CAPSULES IN THE MORNING,2 CAPSULES IN THE AFTERNOON,AND 3 CAPSULES AT BEDTIME ORAL MEDICATION LIST REVIEWED AND RECONCILED WITH THE PATIENT PAST MEDICAL HISTORY HTN, AFIB ON ELIQUIS GOUT OPEN ABDOMINAL WOUND CVA COPD ON HOME O2 ANXIETY SEPTIC SHOCK WITH ACUTE KIDNEY FAILURE ILEOSTOMY HAS HAD RHABDO , HAS FOOT DROP RIGHT SHOULDER TORN TENDON ALLERGIES N.K.D.A. SURGICAL HISTORY ILEOCECAL RESECTION WITH PROLONGED STAY DUE TO WOUND DEHISCENCE 2017 BACK SURGERY X 3 BOWEL ENTERCTOMY - TOTAL OF 3 ABDOMINAL SURGERIES 2018 COLONOSCOPY WITH BIOPSY 06/2018 EGD & COLONOSCOPY 08/2018 FAMILY HISTORY FATHER: , DIAGNOSED WITH CANCER, HEART DISEASE MOTHER: , CANCER SIBLINGS: HEART DISEASE SOCIAL HISTORY GENERAL: TOBACCO USE ARE YOU A:CURRENT SMOKER USING CHANTIX, CUTTING BACK ARE YOU INTERESTED IN QUITTING?READY TO QUIT COUNSELED THE PATIENT ON TOBACCO USE, CESSATION [id number]/03/2019 HOW OFTEN DO YOU SMOKE CIGARETTES?SOME DAYS, BUT NOT EVERY DAY PATIENT COUNSELED ON THE DANGERS OF TOBACCO USE AND URGED TO QUIT:09/06/2018 LATEX QUESTIONNAIRE LATEX ALLERGY : HAVE YOU EVER DEVELOPED ANY TYPE OF REACTION AFTER HANDLING LATEX PRODUCTS SUCH RUBBER GLOVES, CONDOMS, DIAPHRAGMS, BALLOONS, SOCKS, OR UNDERWEAR?NO LATEX ALLERGY : HAVE YOU EVER DEVELOPED ANY TYPE OF REACTION DURING OR AFTER DENTAL APPOINTMENT, VAGINAL/RECTAL EXAMINATION, SURGICAL PROCEDURE, OR ANY OTHER EXPOSURE?NO LATEX RISK : HAVE YOU EVER HAD ANY DIFFICULTY BREATHING OR HIVES AFTER EATING OR HANDLING ANY FRUITS, OR VEGETABLES; SUCH KIWI, BANANAS, STONE FRUITS, OR CHESTNUTSNO LATEX RISK : DO YOU HAVE A PREVIOUS PERSONAL HISTORY OF MORE THAN NINE SURGERIES, SPINA BIFIDA, OR REPEATED CATHERTIZATIONS? NO LATEX RISK : ARE YOU FREQUENTLY EXPOSED TO LATEX PRODUCTS IN YOUR OCCUPATION?NO DATE ASKED : 09/06/2018 ALCOHOL SCREENING DID YOU HAVE A DRINK CONTAINING ALCOHOL IN THE PAST YEAR?YES POINTS0 INTERPRETATIONNEGATIVE RECREATIONAL DRUG USE DRUG USE?NO CAFFEINE CAFFEINE USE?YES HOW OFTEN AND HOW MUCH? COFFEE NOT QUITE DAILY ROMAN CATHOLIC [id number] [employer] WITNESS LANGUAGE LANGUAGES SPOKEN:LITHUANIAN LEARNING BARRIERS / SPECIAL NEEDS HEARING IMPAIRED?YES VISION IMPAIRED?YES :CORRECTIVE LENSES READINESS TO LEARN?YES LEARNING PREFERENCES?NO SPECIAL DEVICES?YES :WHEELCHAIR DIET: NO ADDED SALT. PAIN CLINIC PFS, CLERGY, PUBLIC HEALTH REFERRALS PFS REFERRAL NEEDED?NO CLERGY REFERRAL NEEDED?NO PUBLIC HEALTH REFERRAL NEEDED?NO WAS THE PROVIDER NOTIFIED OF ANY PERTINENT INFO?NO HAS THE PATIENT BEEN EDUCATED REGARDING HIS/HER PLAN OF CARE?YES HAS THE PATIENT BEEN EDUCATED REGARDING PAIN, THE RISK FOR PAIN, THE IMPORTANCE OF EFFECTIVE PAIN MANAGEMENT, AND THE PAIN ASSESSMENT PROCESS?YES ADVANCE DIRECTIVE ADVANCE DIRECTIVE DISCUSSED WITH PATIENT:YES HCP - JEN FISHER (DAUGHTER) QUIT SMOKING AND ALCOHOL DUE TO HEALTHREVIEWED WITH PATIENT 06/29/18 0957 JSREVIEWED WITH PATIENT 09/06/18 1149 JS. HOSPITALIZATION/MAJOR DIAGNOSTIC PROCEDURE SEE ABOVE 78 DAYS IN [facility] REVIEW OF SYSTEMS REVIEWED BY: PROVIDER: TAVO SCOTT . CONSTITUTIONAL: ANY CHANGE IN YOUR MEDICAL CONDITION? NO . CHILLS NO . FEVER NO . INFECTION: DO YOU HAVE NEW INFECTIONS? NO . DO YOU HAVE HISTORY OF MRSA? NO . MUSCULOSKELETAL: ANY NEW PATTERNS OF PAIN OR NUMBNESS? YES, STATES STILL HAVING A LOT OF PAIN AND NUMBNESS, BURNING IN BILATERAL LEGS . GASTROENTEROLOGY: ANY NEW CHANGE IN BOWEL CONTROL? NO . GENITOURINARY: ANY NEW CHANGE IN BLADDER CONTROL? NO . IS THERE A CHANCE YOU COULD BE ? NO . HEMATOLOGY/LYMPH: DO YOU TAKE ANY BLOOD THINNERS? (FOR EXAMPLE- COUMADIN, PLAVIX, AGGRENOX, PLATEL, PRADAXA, OR XARELTO) YES, ELIQUIS . WHEN WAS YOUR LAST DOSE? DATE: 09/06/18TIME: 0600 . NEUROLOGY: HAVE YOU FALLEN IN THE PAST 12 MONTHS? YES, STATES PRIOR TO LAST VISIT, DISCUSSED AT LAST VISIT . ANY NEW EXTREMITY NUMBNESS OR WEAKNESS? YES, STATES WEAKNESS IS SO SEVERE SOMEDAYS IN HIS LEGS THAT HE CAN'T TRANSFER OR STAND WELL AT ALL . CARDIOLOGY: DO YOU HAVE A PACEMAKER OR DEFIBRILLATOR? NO . RESPIRATORY: HAVE YOU BEEN SICK IN THE PAST WEEK? NO . FEVER NO . FLU LIKE SYMPTOMS? NO . COUGH NO . INTEGUMENTARY: DO YOU HAVE ANY RASHES OR OPEN SORES? YES, DRY SKIN AND REDNESS FROM BRACES TO HIS LEFT LEG . ALLERGIC/IMMUNO: ARE YOU ALLERGIC TO IV DYE? NO . ANY NEW ALLERGIES? NO . PSYCHIATRIC: DO YOU HAVE THOUGHTS OF HURTING YOURSELF OR SOMEONE ELSE? NO . ARE YOU ABUSED, NEGLECTED, OR IN AN UNSAFE ENVIRONMENT? NO . ENDOCRINOLOGY: ARE YOU DIABETIC? NO . OTHER: DO YOU NEED ANY PRESCRIPTIONS? YES . IF YES, PLEASE LIST: ____HYDROCODONE, BACLOFEN . ANY NEW PROBLEMS WITH YOUR MEDICATIONS? NO . WHEN DID YOU LAST EAT? ____ . WHEN DID YOU LAST DRINK? ____ . WHAT DID YOU LAST DRINK? ____ . NAME OF PERSON DRIVING YOU HOME? ____ . DO YOU HAVE ANY OTHER QUESTIONS OR CONCERNS YES, RIGHT SHOULDER PAINFUL DUE TO TENDON TEAR AND POSSIBLE ROTATOR CUFF TEAR . VITAL SIGNS WT 203.4 LBS, HT 68 IN, BMI 30.92 INDEX, BP 134/77 MM HG, HR 86 /MIN, RR 18 /MIN, TEMP 98.0 F, OXYGEN SAT % 96%, SAFE IN ENV? (Y/N) YES, NA INITIALS [place] 11:30, REVIEWED BY: AIMEE. EXAMINATION GENERAL EXAMINATION: GENERAL APPEARANCE:AWAKE,ALERT ,PLEASANT . PSYCHAFFECT NORMAL . LUNGS:LUNG REYES ARE CLEAR TO AUSCULTATION BILATERALLY. GOOD MOVEMENT OF AIR . HEART:S1, S2 IN A REGULAR RATE AND RHYTHM. NO SIGNIFICANT MURMURS, RUBS OR GALLOPS NOTED . ASSESSMENTS LUMBAR DISC DISPLACEMENT WITHOUT MYELOPATHY - M51.26 (PRIMARY) TREATMENT LUMBAR DISC DISPLACEMENT WITHOUT MYELOPATHY REFILL NORCO TABLET, 10-325 MG, 1 TABLET NEEDED, ORALLY, EVERY 8 HRS MDD3, 30 DAY(S), 90, REFILLS 0 CONTINUE BACLOFEN TABLET, 10 MG, 1 TABLET WITH FOOD OR MILK, ORALLY, Q6H REFILL BUTRANS PATCH WEEKLY, 20 MCG/HR, 1 PATCH TO SKIN, TRANSDERMAL, 1 PATCH [id number], 30 DAY(S), 4, REFILLS 2 NOTES: ISTOP REGISTRY REVIEWED AND DEMONSTRATES COMPLLIANCE. BRINGS IN MEDICATIONS WHICH IS APPROPRIATE FOR WHAT WAS DISPENSED. URINE TOX TODAY, RISKS AND BENEFITS OF NARCOTIC/OPIOD MEDICATIONS WERE REVIEWED WITH PATIENT - THIS INCLUDES BUT IS NOT LIMITED TO RISK OF DEPENDANCE/DEVELOPMENT OF ADDICTION, MOOD DISTURBANCE AND DEPRESSION, OSTEOPOROSIS, HORMONAL AND LABIDAL CHANGES, RESPIRATORY DEPRESSION AND . PATIENT IS ADVISED NOT TO DRIVE OR DRINK ALCOHOL WHILE ON THESE MEDICATIONS. PROCEDURE CODES FA211 ESTABILISHED PATIENT [facility] CHARGE DISPOSITION & COMMUNICATION FOLLOW UP 2 MONTHS ELECTRONICALLY SIGNED BY TYLER PAINTING ON 09/20/2018 AT 10:29 AM EDT DISCLAIMER : THIS IS A VISIT SUMMARY EXTRACTED FROM THE [employer] CHART. IT IS NOT A COPY OF THE [employer] PROGRESS NOTE. MARINE
== END ==
LOC: M PAIN 11:30
PROVIDERS: ATTEND Nurse Practitioner Family
DX: M51.26 Other intervertebral disc displacement, lumbar region (principal); G89.29 Other chronic pain; G62.9 Polyneuropathy, unspecified; I10 Essential (primary) hypertension; Z86.39 Personal history of other endocrine, nutritional and metabolic disease; Z86.73 Personal history of transient ischemic attack (TIA), and cerebral infarction without residual deficits; J44.9 Chronic obstructive pulmonary disease, unspecified; Z86.59 Personal history of other mental and behavioral disorders; F17.210 Nicotine dependence, cigarettes, uncomplicated; Z79.01 Long term (current) use of anticoagulants; Z79.891 Long term (current) use of opiate analgesic; Z79.52 Long term (current) use of systemic steroids; Z79.899 Other long term (current) drug therapy

== ENCOUNTER → 2018-10-20 | Outpatient (CLI) | payer MEDICARE ==
[~2018-10-20] MED LIST changes: +GASTROGRAFIN SOLUTION 30ML (Q9963) As Ordered ONE; +ISOVUE-370 76% 100ML VIAL (Q9967) As Ordered ONE
--- NOTE | 2018-10-26 12:58 | REP ---
CT ABDOMEN AND PELVIS WITH IV AND ORAL CONTRAST: TECHNIQUE: Axial contrast enhanced images from the lung bases to the pubic symphysis using 100 mL Isovue 370 intravenous contrast material with multiplanar reformations. COMPARISON: 07/01/2018 [facility]. Visualized lung bases demonstrate mild fibroatelectatic change. The liver demonstrates no mass. Gallbladder is again contracted with a somewhat lobulated contour unchanged since the prior study. Spleen is unremarkable as are the adrenals and pancreas. Kidneys demonstrate no mass or hydronephrosis. There is atherosclerotic calcification of the abdominal aorta with mild ectasia, with maximum diameter in the AP dimension 2.8 cm. No adenopathy is seen in the abdomen or pelvis. There is no free air or free fluid. There is again diastasis of the rectus muscles anteriorly with diffuse protrusion of intra-abdominal contents anteriorly to a subcutaneous location. There is a right lower quadrant ostomy again noted with mild herniation of bowel and fat within the stoma. There is no evidence of bowel obstruction. There is an oval area of edematous fat inferiorly in the anterior abdominal wall in the midline, at the inferior margin of the rectus muscle diastasis which could represent an area of fat necrosis. There is very mild edematous change in the right lower quadrant mesenteric fat. There is sigmoid diverticulosis, to a lesser extent involving the left colon, without evidence of acute diverticulitis. The urinary bladder is not well distended and not well evaluated. There are degenerative changes of the spine. No compression deformity is seen of the lumbar vertebral bodies. 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 There is extensive diastasis of the rectus muscles with protrusion of intra-abdominal contents anteriorly. At the inferior margin of this rectus muscle diastasis there is an oval area of fat containing edema and fluid which may represent an area of fat necrosis, measuring approximately 5.7 x 1.7 x 3.3 cm. There is minimal edema in the right lower quadrant mesenteric fat. There is no other acute finding. Electronically Signed by Reji Cao MD 10/27/2018 02:38 P
== END ==
LOC: M RAD 10:51
PROVIDERS: ATTEND Surgery Trauma Surgery
DX: K43.5 Parastomal hernia without obstruction or gangrene (principal)
CPT/HCPCS: 74177; Q9963; Q9967

== ENCOUNTER → 2018-11-07 | Outpatient (CLI) | payer MEDICARE ==
[~2018-11-07] MED LIST changes: -GASTROGRAFIN SOLUTION 30ML (Q9963) As Ordered ONE; -ISOVUE-370 76% 100ML VIAL (Q9967) As Ordered ONE; -TRAZ-160 PO; +TRAZ-252 PO; +TRAZ1TAB11 PO; -TRAZ25TA PO
--- NOTE | 2018-11-23 02:25 | ECWPNPC ---
PATIENT NAME: CHIRAG PIERRE : 1950 GENDER: MALE VISIT DATE: 11/07/2018 DISCHARGE DATE: 11/07/18 1006 VISIT LOCKED DATE TIME: PHYSICIAN: TAVO PATEL RESOURCE: TAVO PATEL REASON FOR APPOINTMENT 1. LEG PAIN/MED MGMT HISTORY OF PRESENT ILLNESS HISTORY OF PRESENT ILLNESS: HERE FOR F/U OF CHRONIC LOW BACK PAIN AND LOWER EXTREMITY NEUROPATHY.STARTED ON BUTRANS PATCH AT LAST VISIT.REPORTING IMPROVED OVERALL PAIN CONTROL BUT CONTINUES TO TAKE HYDROCODONE 10/325 3 TABLETS DAILY.RATING PAIN VAS 6/10.ACCOMPANIED IN EXAM ROOM WITH HIS DAUGHTER WHO IS HIS PRIMARY CARE PROVIDER.DISCUSSED TREATMENT OPTIONS.DENIES SIDE EFFECTS WITH MEDICATION .DOES NOT DEMONSTRATE ABBERANT BEHAVIOR.REPORTING INCREASE IN PAIN IN AM AND PM. PAIN THE PATIENT DESCRIBES THE PAIN... THE PATIENT DESCRIBES THE PAIN... FALL RISK SCREENING: SCREENING :NO FALLS REPORTED IN THE LAST YEAR CURRENT MEDICATIONS TAKING LOMOTIL 2.5-0.025 MG TABLET 1 TABLET NEEDED ORALLY FOUR TIMES A DAY TAKING LOPERAMIDE HCL 2 MG CAPSULE TAKE 2 CAPSULES BY MOUTH 4 TIMES DAILY ORAL TAKING ELIQUIS 5 MG TABLET 1 CAP ORAL BID TAKING MAGNESIUM OXIDE 400 (241.3 MG) MG TABLET TAKE 2 TABLET BY MOUTH ONCE DAILY ORAL FOUR TIMES DAILY TAKING PANTOPRAZOLE SODIUM 40 MG TABLET DELAYED RELEASE ORAL TAKING DIPHENOXYLATE-ATROPINE 2.5-0.025 MG TABLET (SCHEDULE V DRUG) TAKE 2 TABLETS BY MOUTH FOUR TIMES A DAY MAXIMUM DAILY DOSE OF 8 ORAL TAKING FOLIC ACID 1 MG TABLET TAKE 1 TABLET BY MOUTH ONCE DAILY ORAL TAKING PREDNISONE 5 MG TABLET TAKE 3 TABLETS BY MOUTH DAILY ORAL TAKING ONDANSETRON 4MG ORAL NEEDED TAKING PROVENTIL 3 MLS INHALED EVERY 4 HOURS NEEDED TAKING SYMBICORT 160-4.5 MCG/ACT AEROSOL 2 PUFFS INHALATION TWICE A DAY TAKING PSYLLIUM 28 % PACKET 1 PACKET WITH 8 OUNCES OF LIQUID NEEDED ORALLY BID TAKING FUROSEMIDE 20 MG TABLET 1 TABLET ORALLY ONCE A DAY TAKING CHANTIX 0.5 MG TABLET 1 TABLET ORALLY ONCE A DAY TAKING BUTRANS 20 MCG/HR PATCH WEEKLY 1 PATCH TO SKIN TRANSDERMAL 1 PATCH [id number] TAKING NORCO 10-325 MG TABLET 1 TABLET NEEDED ORALLY EVERY 8 HRS MDD3 TAKING BACLOFEN 10 MG TABLET 1 TABLET WITH FOOD OR MILK ORALLY Q6H TAKING NICOTINE 21 MG/24HR PATCH 24 HOUR APPLY ONE PATCH TO SKIN DAILY TRANSDERMAL TAKING FERROUS SULFATE 325 (65 FE) MG TABLET TAKE 1 TABLET BY MOUTH ONCE DAILY ORAL TAKING TRAZODONE HCL 50 MG TABLET TAKE 1 TABLET BY MOUTH AT BEDTIME IF NEEDED FOR SLEEP ORAL TAKING CARTIA XT 180 MG CAPSULE EXTENDED RELEASE 24 HOUR 1 CAPSULE ORALLY ONCE A DAY NOT-TAKING FAMOTIDINE 20 MG TABLET TAKE 1 TABLET BY MOUTH TWICE A DAY ORAL NOT-TAKING OCEAN NASAL SPRAY 0.65 % SOLUTION 2 SPRAYS IN EACH NOSTRIL NEEDED NASALLY EVERY 2 HRS NOT-TAKING TRAMADOL HCL 50 MG TABLET (SCHEDULE IV DRUG) TAKE 1 TABLET BY MOUTH TWICE A DAY WITH TYLENOL 325 MG IF NEEDED ... (REFER TO PRESCRIPTION NOTES). ORAL NOT-TAKING MECLIZINE HCL 25 MG TABLET TAKE 1 TABLET BY MOUTH THREE TIMES A DAY FOR DIZZINESS CRUSH TABLET.GIVE WITH APPLESAUCE/WATER ORAL NOT-TAKING GABAPENTIN 300 MG CAPSULE TAKE 3 CAPSULES IN THE MORNING,2 CAPSULES IN THE AFTERNOON,AND 3 CAPSULES AT BEDTIME ORAL MEDICATION LIST REVIEWED AND RECONCILED WITH THE PATIENT PAST MEDICAL HISTORY HTN, AFIB ON ELIQUIS GOUT OPEN ABDOMINAL WOUND CVA COPD ON HOME O2 ANXIETY SEPTIC SHOCK WITH ACUTE KIDNEY FAILURE ILEOSTOMY HAS HAD RHABDO , HAS FOOT DROP RIGHT SHOULDER TORN TENDON ALLERGIES N.K.D.A. SURGICAL HISTORY ILEOCECAL RESECTION WITH PROLONGED STAY DUE TO WOUND DEHISCENCE 2017 BACK SURGERY X 3 BOWEL ENTERCTOMY - TOTAL OF 3 ABDOMINAL SURGERIES 2018 COLONOSCOPY WITH BIOPSY 06/2018 EGD & COLONOSCOPY 08/2018 FAMILY HISTORY FATHER: , DIAGNOSED WITH HEART DISEASE, CANCER MOTHER: , CANCER SIBLINGS: HEART DISEASE SOCIAL HISTORY GENERAL: TOBACCO USE ARE YOU A:CURRENT SMOKER USING CHANTIX, CUTTING BACK ARE YOU INTERESTED IN QUITTING?READY TO QUIT COUNSELED THE PATIENT ON TOBACCO USE, CESSATION [id number]/03/2019 HOW OFTEN DO YOU SMOKE CIGARETTES?SOME DAYS, BUT NOT EVERY DAY PATIENT COUNSELED ON THE DANGERS OF TOBACCO USE AND URGED TO QUIT:11/07/2018 PAIN CLINIC PFS, CLERGY, PUBLIC HEALTH REFERRALS PFS REFERRAL NEEDED?NO CLERGY REFERRAL NEEDED?NO PUBLIC HEALTH REFERRAL NEEDED?NO WAS THE PROVIDER NOTIFIED OF ANY PERTINENT INFO?NO HAS THE PATIENT BEEN EDUCATED REGARDING HIS/HER PLAN OF CARE?YES HAS THE PATIENT BEEN EDUCATED REGARDING PAIN, THE RISK FOR PAIN, THE IMPORTANCE OF EFFECTIVE PAIN MANAGEMENT, AND THE PAIN ASSESSMENT PROCESS?YES LATEX QUESTIONNAIRE LATEX ALLERGY : HAVE YOU EVER DEVELOPED ANY TYPE OF REACTION AFTER HANDLING LATEX PRODUCTS SUCH RUBBER GLOVES, CONDOMS, DIAPHRAGMS, BALLOONS, SOCKS, OR UNDERWEAR?NO LATEX ALLERGY : HAVE YOU EVER DEVELOPED ANY TYPE OF REACTION DURING OR AFTER DENTAL APPOINTMENT, VAGINAL/RECTAL EXAMINATION, SURGICAL PROCEDURE, OR ANY OTHER EXPOSURE?NO DATE ASKED : 09/06/2018 LATEX RISK : HAVE YOU EVER HAD ANY DIFFICULTY BREATHING OR HIVES AFTER EATING OR HANDLING ANY FRUITS, OR VEGETABLES; SUCH KIWI, BANANAS, STONE FRUITS, OR CHESTNUTSNO LATEX RISK : DO YOU HAVE A PREVIOUS PERSONAL HISTORY OF MORE THAN NINE SURGERIES, SPINA BIFIDA, OR REPEATED CATHERTIZATIONS? NO LATEX RISK : ARE YOU FREQUENTLY EXPOSED TO LATEX PRODUCTS IN YOUR OCCUPATION?NO CAFFEINE CAFFEINE USE?YES HOW OFTEN AND HOW MUCH? COFFEE NOT QUITE DAILY ADVANCE DIRECTIVE ADVANCE DIRECTIVE DISCUSSED WITH PATIENT:YES HCP - JEN FISHER (DAUGHTER) DIET: NO ADDED SALT. HOLINESS [id number] JEHOVAH WITNESS LANGUAGE LANGUAGES SPOKEN:THAI ALCOHOL SCREENING DID YOU HAVE A DRINK CONTAINING ALCOHOL IN THE PAST YEAR?YES POINTS0 INTERPRETATIONNEGATIVE RECREATIONAL DRUG USE DRUG USE?NO LEARNING BARRIERS / SPECIAL NEEDS HEARING IMPAIRED?YES VISION IMPAIRED?YES :CORRECTIVE LENSES READINESS TO LEARN?YES LEARNING PREFERENCES?NO SPECIAL DEVICES?YES :WHEELCHAIR QUIT SMOKING AND ALCOHOL DUE TO HEALTHREVIEWED WITH PATIENT 06/29/18 0957 JSREVIEWED WITH PATIENT 09/06/18 1149 JS. HOSPITALIZATION/MAJOR DIAGNOSTIC PROCEDURE SEE ABOVE 78 DAYS IN [facility] 2017 REVIEW OF SYSTEMS REVIEWED BY: PROVIDER: TAVO SCOTT . CONSTITUTIONAL: ANY CHANGE IN YOUR MEDICAL CONDITION? NO . CHILLS NO . FEVER NO . INFECTION: DO YOU HAVE NEW INFECTIONS? NO . DO YOU HAVE HISTORY OF MRSA? NO . MUSCULOSKELETAL: ANY NEW PATTERNS OF PAIN OR NUMBNESS? YES, YES . GASTROENTEROLOGY: ANY NEW CHANGE IN BOWEL CONTROL? NO . GENITOURINARY: ANY NEW CHANGE IN BLADDER CONTROL? NO . IS THERE A CHANCE YOU COULD BE ? NO . HEMATOLOGY/LYMPH: DO YOU TAKE ANY BLOOD THINNERS? (FOR EXAMPLE- COUMADIN, PLAVIX, AGGRENOX, PLATEL, PRADAXA, OR XARELTO) NO . WHEN WAS YOUR LAST DOSE? DATE: TIME: . NEUROLOGY: HAVE YOU FALLEN IN THE PAST 12 MONTHS? NO . ANY NEW EXTREMITY NUMBNESS OR WEAKNESS? NO . CARDIOLOGY: DO YOU HAVE A PACEMAKER OR DEFIBRILLATOR? NO . RESPIRATORY: HAVE YOU BEEN SICK IN THE PAST WEEK? NO . FEVER NO . FLU LIKE SYMPTOMS? NO . COUGH NO . INTEGUMENTARY: DO YOU HAVE ANY RASHES OR OPEN SORES? NO . ALLERGIC/IMMUNO: ARE YOU ALLERGIC TO IV DYE? NO . ANY NEW ALLERGIES? NO . PSYCHIATRIC: DO YOU HAVE THOUGHTS OF HURTING YOURSELF OR SOMEONE ELSE? NO . ARE YOU ABUSED, NEGLECTED, OR IN AN UNSAFE ENVIRONMENT? NO . ENDOCRINOLOGY: ARE YOU DIABETIC? NO . OTHER: DO YOU NEED ANY PRESCRIPTIONS? NO . IF YES, PLEASE LIST: ____ . ANY NEW PROBLEMS WITH YOUR MEDICATIONS? NO . WHEN DID YOU LAST EAT? ____ . WHEN DID YOU LAST DRINK? ____ . WHAT DID YOU LAST DRINK? ____ . NAME OF PERSON DRIVING YOU HOME? ____ . DO YOU HAVE ANY OTHER QUESTIONS OR CONCERNS WE DISCUSSED PTS SMOKING HE IS VERY MOTIVATED TO QUIT AND TRYING MANY PRODUCTS . VITAL SIGNS WT 207.6 LBS, HT 68 IN, BMI 31.56 INDEX, BP 143/81 MM HG, HR 85 /MIN, RR 18 /MIN, TEMP 97.1 F, OXYGEN SAT % 91%, SAFE IN ENV? (Y/N) YES, NA INITIALS AW 0929, REVIEWED BY: LEONARDO. EXAMINATION GENERAL EXAMINATION: GENERAL APPEARANCE:AWAKE,ALERT ,PLEASANT . PSYCHAFFECT NORMAL . LUNGS:LUNG REYES ARE CLEAR TO AUSCULTATION BILATERALLY. GOOD MOVEMENT OF AIR . HEART:S1, S2 IN A REGULAR RATE AND RHYTHM. NO SIGNIFICANT MURMURS, RUBS OR GALLOPS NOTED . ASSESSMENTS LUMBAR DISC DISPLACEMENT WITHOUT MYELOPATHY - M51.26 (PRIMARY) TREATMENT LUMBAR DISC DISPLACEMENT WITHOUT MYELOPATHY REFILL BUTRANS PATCH WEEKLY, 20 MCG/HR, 1 PATCH TO SKIN, TRANSDERMAL, 1 PATCH [id number], 30 DAY(S), 4, REFILLS 2 REFILL NORCO TABLET, 10-325 MG, 1 TABLET NEEDED, ORALLY, EVERY 8 HRS MDD3, 30 DAY(S), 90, REFILLS 0 INCREASE BACLOFEN TABLET, 20 MG, 1 TABLET WITH FOOD OR MILK, ORALLY, EVERY 8 HRS, 30 DAY(S), 90 TABLET, REFILLS 2 NOTES: ISTOP REGISTRY REVIEWED AND DEMONSTRATES COMPLLIANCE. BRINGS IN MEDICATIONS WHICH IS APPROPRIATE FOR WHAT WAS DISPENSED. RECENT URINE TOXICOLOGY REVIEWED. NO UNAUTHORIZED MEDICATIONS. NO ILLICIT SUBSTANCES AND PRESCRIBED MEDICATIONS WERE PRESENT. , RISKS AND BENEFITS OF NARCOTIC/OPIOD MEDICATIONS WERE REVIEWED WITH PATIENT - THIS INCLUDES BUT IS NOT LIMITED TO RISK OF DEPENDANCE/DEVELOPMENT OF ADDICTION, MOOD DISTURBANCE AND DEPRESSION, OSTEOPOROSIS, HORMONAL AND LABIDAL CHANGES, RESPIRATORY DEPRESSION AND . PATIENT IS ADVISED NOT TO DRIVE OR DRINK ALCOHOL WHILE ON THESE MEDICATIONS. PROCEDURE CODES FA211 ESTABILISHED PATIENT [facility] CHARGE DISPOSITION & COMMUNICATION FOLLOW UP 3 MONTHS ELECTRONICALLY SIGNED BY TYLER PAINTING ON 11/21/2018 AT 12:54 PM EDT DISCLAIMER : THIS IS A VISIT SUMMARY EXTRACTED FROM THE [employer] CHART. IT IS NOT A COPY OF THE [employer] PROGRESS NOTE. MARINE
== END ==
LOC: M PAIN 09:30
PROVIDERS: ATTEND Nurse Practitioner Family
DX: M51.26 Other intervertebral disc displacement, lumbar region (principal); G89.29 Other chronic pain; Z79.891 Long term (current) use of opiate analgesic; Z79.899 Other long term (current) drug therapy; F17.210 Nicotine dependence, cigarettes, uncomplicated

== ENCOUNTER → 2019-02-07 | Outpatient (CLI) | payer MEDICARE ==
--- NOTE | 2019-02-27 02:30 | ECWPNPC ---
PATIENT NAME: CHIRAG PIERRE : 1950 GENDER: MALE VISIT DATE: 02/07/2019 DISCHARGE DATE: 02/07/19 1023 VISIT LOCKED DATE TIME: PHYSICIAN: TAVO PATEL RESOURCE: TAVO PATEL DISCLAIMER : THIS IS A VISIT SUMMARY EXTRACTED FROM THE [facility] CHART. IT IS NOT A COPY OF THE [facility] PROGRESS NOTE. MTDD
== END ==
LOC: M PAIN 10:00
PROVIDERS: ATTEND Nurse Practitioner Family
DX: M51.26 Other intervertebral disc displacement, lumbar region (principal); G89.29 Other chronic pain; I10 Essential (primary) hypertension; J44.9 Chronic obstructive pulmonary disease, unspecified; Z86.59 Personal history of other mental and behavioral disorders; F17.210 Nicotine dependence, cigarettes, uncomplicated; Z79.01 Long term (current) use of anticoagulants; Z79.899 Other long term (current) drug therapy

== ENCOUNTER → 2019-04-11 | Outpatient (CLI) | payer MEDICARE ==
--- NOTE | 2019-04-27 00:49 | ECWPNPC ---
PATIENT NAME: CHIRAG PIERRE : 1950 GENDER: MALE VISIT DATE: 04/11/2019 DISCHARGE DATE: 04/11/19 1128 VISIT LOCKED DATE TIME: PHYSICIAN: TAVO PATEL RESOURCE: TAVO PATEL REASON FOR APPOINTMENT 1. LEG PAIN/MED MGMT HISTORY OF PRESENT ILLNESS HISTORY OF PRESENT ILLNESS: HERE FOR F/U OF CHRONIC LOW BACK PAIN AND LOWER EXTREMITY NEUROPATHY.STARTED ON BUTRANS PATCH AT LAST VISIT.REPORTING IMPROVED OVERALL PAIN CONTROL BUT CONTINUES TO TAKE HYDROCODONE 10/325 3 TABLETS DAILY.RATING PAIN VAS 6/10.ACCOMPANIED IN EXAM ROOM WITH HIS DAUGHTER WHO IS HIS PRIMARY CARE PROVIDER.DISCUSSED TREATMENT OPTIONS.DENIES SIDE EFFECTS WITH MEDICATION .DOES NOT DEMONSTRATE ABBERANT BEHAVIOR. PAIN THE PATIENT DESCRIBES THE PAIN... THE PATIENT DESCRIBES THE PAIN... THE PATIENT DESCRIBES THE PAIN... THE PATIENT DESCRIBES THE PAIN... FALL RISK SCREENING: SCREENING :NO FALLS REPORTED IN THE LAST YEAR CURRENT MEDICATIONS TAKING LOMOTIL 2.5-0.025 MG TABLET 1 TABLET NEEDED ORALLY FOUR TIMES A DAY TAKING LOPERAMIDE HCL 2 MG CAPSULE TAKE 2 CAPSULES BY MOUTH 4 TIMES DAILY ORAL TAKING ELIQUIS 5 MG TABLET 1 CAP ORAL BID TAKING MAGNESIUM OXIDE 400 (241.3 MG) MG TABLET TAKE 2 TABLET BY MOUTH ONCE DAILY ORAL FOUR TIMES DAILY TAKING PANTOPRAZOLE SODIUM 40 MG TABLET DELAYED RELEASE ORAL TAKING DIPHENOXYLATE-ATROPINE 2.5-0.025 MG TABLET (SCHEDULE V DRUG) TAKE 2 TABLETS BY MOUTH FOUR TIMES A DAY MAXIMUM DAILY DOSE OF 8 ORAL TAKING FOLIC ACID 1 MG TABLET TAKE 1 TABLET BY MOUTH ONCE DAILY ORAL TAKING ONDANSETRON 4MG ORAL NEEDED TAKING PROVENTIL 3 MLS INHALED EVERY 4 HOURS NEEDED TAKING SYMBICORT 160-4.5 MCG/ACT AEROSOL 2 PUFFS INHALATION TWICE A DAY TAKING FUROSEMIDE 20 MG TABLET 1 TABLET ORALLY ONCE A DAY TAKING CARTIA XT 180 MG CAPSULE EXTENDED RELEASE 24 HOUR 1 CAPSULE ORALLY ONCE A DAY TAKING NICORETTE 4 MG GUM 1 PIECE NEEDED MOUTH/THROAT 24 TIME(S) A DAY TAKING BUTRANS 20 MCG/HR PATCH WEEKLY 1 PATCH TO SKIN TRANSDERMAL 1 PATCH [id number] TAKING GABAPENTIN 100 MG CAPSULE 1 CAPSULE ORALLY THREE TIMES DAILY TAKING NORCO 10-325 MG TABLET 1 TABLET NEEDED ORALLY EVERY 8 HRS MDD3 TAKING BACLOFEN 20 MG TABLET 1 TABLET WITH FOOD OR MILK ORALLY EVERY 8 HRS NOT-TAKING PSYLLIUM 28 % PACKET 1 PACKET WITH 8 OUNCES OF LIQUID NEEDED ORALLY BID NOT-TAKING NICOTINE 21 MG/24HR PATCH 24 HOUR APPLY ONE PATCH TO SKIN DAILY TRANSDERMAL NOT-TAKING FERROUS SULFATE 325 (65 FE) MG TABLET TAKE 1 TABLET BY MOUTH ONCE DAILY ORAL NOT-TAKING TRAZODONE HCL 50 MG TABLET TAKE 1 TABLET BY MOUTH AT BEDTIME IF NEEDED FOR SLEEP ORAL NOT-TAKING FAMOTIDINE 20 MG TABLET TAKE 1 TABLET BY MOUTH TWICE A DAY ORAL NOT-TAKING OCEAN NASAL SPRAY 0.65 % SOLUTION 2 SPRAYS IN EACH NOSTRIL NEEDED NASALLY EVERY 2 HRS NOT-TAKING TRAMADOL HCL 50 MG TABLET (SCHEDULE IV DRUG) TAKE 1 TABLET BY MOUTH TWICE A DAY WITH TYLENOL 325 MG IF NEEDED ... (REFER TO PRESCRIPTION NOTES). ORAL NOT-TAKING MECLIZINE HCL 25 MG TABLET TAKE 1 TABLET BY MOUTH THREE TIMES A DAY FOR DIZZINESS CRUSH TABLET.GIVE WITH APPLESAUCE/WATER ORAL NOT-TAKING GABAPENTIN 300 MG CAPSULE TAKE 3 CAPSULES IN THE MORNING,2 CAPSULES IN THE AFTERNOON,AND 3 CAPSULES AT BEDTIME ORAL MEDICATION LIST REVIEWED AND RECONCILED WITH THE PATIENT PAST MEDICAL HISTORY HTN, AFIB ON ELIQUIS GOUT OPEN ABDOMINAL WOUND CVA COPD ON HOME O2 ANXIETY SEPTIC SHOCK WITH ACUTE KIDNEY FAILURE ILEOSTOMY HAS HAD RHABDO , HAS FOOT DROP RIGHT SHOULDER TORN TENDON ALLERGIES N.K.D.A. SURGICAL HISTORY ILEOCECAL RESECTION WITH PROLONGED STAY DUE TO WOUND DEHISCENCE 2017 BACK SURGERY X 3 BOWEL ENTERCTOMY - TOTAL OF 3 ABDOMINAL SURGERIES 2018 COLONOSCOPY WITH BIOPSY 06/2018 EGD & COLONOSCOPY 08/2018 FAMILY HISTORY FATHER: , DIAGNOSED WITH UNSPECIFIED HEART DISEASE, OTHER MALIGNANT NEOPLASM OF UNSPECIFIED SITE MOTHER: , OTHER MALIGNANT NEOPLASM OF UNSPECIFIED SITE SIBLINGS: UNSPECIFIED HEART DISEASE SOCIAL HISTORY GENERAL: TOBACCO USE ARE YOU A:NONSMOKER HAS BEEN USING THE PATCH FOR A LITTLE OVER MONTH. PAIN CLINIC PFS, CLERGY, PUBLIC HEALTH REFERRALS PFS REFERRAL NEEDED?NO CLERGY REFERRAL NEEDED?NO PUBLIC HEALTH REFERRAL NEEDED?NO WAS THE PROVIDER NOTIFIED OF ANY PERTINENT INFO?NO HAS THE PATIENT BEEN EDUCATED REGARDING HIS/HER PLAN OF CARE?YES HAS THE PATIENT BEEN EDUCATED REGARDING PAIN, THE RISK FOR PAIN, THE IMPORTANCE OF EFFECTIVE PAIN MANAGEMENT, AND THE PAIN ASSESSMENT PROCESS?YES LATEX QUESTIONNAIRE LATEX ALLERGY : HAVE YOU EVER DEVELOPED ANY TYPE OF REACTION AFTER HANDLING LATEX PRODUCTS SUCH RUBBER GLOVES, CONDOMS, DIAPHRAGMS, BALLOONS, SOCKS, OR UNDERWEAR?NO LATEX ALLERGY : HAVE YOU EVER DEVELOPED ANY TYPE OF REACTION DURING OR AFTER DENTAL APPOINTMENT, VAGINAL/RECTAL EXAMINATION, SURGICAL PROCEDURE, OR ANY OTHER EXPOSURE?NO LATEX RISK : HAVE YOU EVER HAD ANY DIFFICULTY BREATHING OR HIVES AFTER EATING OR HANDLING ANY FRUITS, OR VEGETABLES; SUCH KIWI, BANANAS, STONE FRUITS, OR CHESTNUTSNO LATEX RISK : DO YOU HAVE A PREVIOUS PERSONAL HISTORY OF MORE THAN NINE SURGERIES, SPINA BIFIDA, OR REPEATED CATHERIZATIONS? NO LATEX RISK : ARE YOU FREQUENTLY EXPOSED TO LATEX PRODUCTS IN YOUR OCCUPATION?NO DATE ASKED : 09/06/2018 CAFFEINE CAFFEINE USE?YES HOW OFTEN AND HOW MUCH? COFFEE NOT QUITE DAILY ADVANCE DIRECTIVE ADVANCE DIRECTIVE DISCUSSED WITH PATIENT:YES HCP - JEN FISHER (DAUGHTER) DIET: NO ADDED SALT. JUDAISM [id number] JEHOVAH WITNESS LANGUAGE LANGUAGES SPOKEN:AMERICAN ALCOHOL SCREENING DID YOU HAVE A DRINK CONTAINING ALCOHOL IN THE PAST YEAR?YES POINTS0 INTERPRETATIONNEGATIVE RECREATIONAL DRUG USE DRUG USE?NO LEARNING BARRIERS / SPECIAL NEEDS HEARING IMPAIRED?YES VISION IMPAIRED?YES :CORRECTIVE LENSES READINESS TO LEARN?YES LEARNING PREFERENCES?NO SPECIAL DEVICES?YES :WHEELCHAIR QUIT SMOKING AND ALCOHOL DUE TO HEALTHREVIEWED WITH PATIENT 06/29/18 0957 JSREVIEWED WITH PATIENT 09/06/18 1149 JSREVIEWED WITH PATIENT 04/11/19 1059 JS. HOSPITALIZATION/MAJOR DIAGNOSTIC PROCEDURE SEE ABOVE 78 DAYS IN [facility] 2017 BOWEL OBSTRUCTION 03/2019 REVIEW OF SYSTEMS REVIEWED BY: PROVIDER: TAVO SCOTT . CONSTITUTIONAL: ANY CHANGE IN YOUR MEDICAL CONDITION? NO . CHILLS NO . FEVER NO . INFECTION: DO YOU HAVE NEW INFECTIONS? NO . DO YOU HAVE HISTORY OF MRSA? NO . MUSCULOSKELETAL: ANY NEW PATTERNS OF PAIN OR NUMBNESS? NO . GASTROENTEROLOGY: ANY NEW CHANGE IN BOWEL CONTROL? NO . GENITOURINARY: ANY NEW CHANGE IN BLADDER CONTROL? NO . IS THERE A CHANCE YOU COULD BE ? NO . HEMATOLOGY/LYMPH: DO YOU TAKE ANY BLOOD THINNERS? (FOR EXAMPLE- COUMADIN, PLAVIX, AGGRENOX, PLATEL, PRADAXA, OR XARELTO) YES, ELIQUIS . WHEN WAS YOUR LAST DOSE? DATE: 04/11/19TIME: 0700 . NEUROLOGY: HAVE YOU FALLEN IN THE PAST 12 MONTHS? NO . ANY NEW EXTREMITY NUMBNESS OR WEAKNESS? NO . CARDIOLOGY: DO YOU HAVE A PACEMAKER OR DEFIBRILLATOR? NO . RESPIRATORY: HAVE YOU BEEN SICK IN THE PAST WEEK? NO . FEVER NO . FLU LIKE SYMPTOMS? NO . COUGH NO . INTEGUMENTARY: DO YOU HAVE ANY RASHES OR OPEN SORES? NO . ALLERGIC/IMMUNO: ARE YOU ALLERGIC TO IV DYE? NO . ANY NEW ALLERGIES? NO . PSYCHIATRIC: DO YOU HAVE THOUGHTS OF HURTING YOURSELF OR SOMEONE ELSE? NO . ARE YOU ABUSED, NEGLECTED, OR IN AN UNSAFE ENVIRONMENT? NO . ENDOCRINOLOGY: ARE YOU DIABETIC? NO . OTHER: DO YOU NEED ANY PRESCRIPTIONS? NO . IF YES, PLEASE LIST: ____ . ANY NEW PROBLEMS WITH YOUR MEDICATIONS? NO . WHEN DID YOU LAST EAT? ____ . WHEN DID YOU LAST DRINK? ____ . WHAT DID YOU LAST DRINK? ____ . NAME OF PERSON DRIVING YOU HOME? ____ . DO YOU HAVE ANY OTHER QUESTIONS OR CONCERNS NO . VITAL SIGNS WT 176.6 LBS, HT 68 IN, BMI 26.85 INDEX, BP 115/55 MM HG, HR 63 /MIN, RR 16 /MIN, TEMP 96.0 F, OXYGEN SAT % 99%, SAFE IN ENV? (Y/N) YES, NA INITIALS AW 1054, REVIEWED BY: AIMEE. EXAMINATION GENERAL EXAMINATION: GENERALAWAKE,ALERT ,PLEASANT . PSYCHAFFECT NORMAL . LUNGS:LUNG REYES ARE CLEAR TO AUSCULTATION BILATERALLY. GOOD MOVEMENT OF AIR . HEART:S1, S2 IN A REGULAR RATE AND RHYTHM. NO SIGNIFICANT MURMURS, RUBS OR GALLOPS NOTED . ASSESSMENTS LUMBAR DISC DISPLACEMENT WITHOUT MYELOPATHY - M51.26 (PRIMARY) TREATMENT LUMBAR DISC DISPLACEMENT WITHOUT MYELOPATHY CONTINUE BUTRANS PATCH WEEKLY, 20 MCG/HR, 1 PATCH TO SKIN, TRANSDERMAL, 1 PATCH [id number] CONTINUE NORCO TABLET, 10-325 MG, 1 TABLET NEEDED, ORALLY, EVERY 8 HRS MDD3 NOTES: ISTOP REGISTRY REVIEWED AND DEMONSTRATES COMPLLIANCE. BRINGS IN MEDICATIONS WHICH IS APPROPRIATE FOR WHAT WAS DISPENSED. RECENT URINE TOXICOLOGY REVIEWED. NO UNAUTHORIZED MEDICATIONS. NO ILLICIT SUBSTANCES AND PRESCRIBED MEDICATIONS WERE PRESENT. . PROCEDURE CODES FA211 ESTABILISHED PATIENT [facility] CHARGE DISPOSITION & COMMUNICATION FOLLOW UP 3 MONTHS (REASON: MED MGMNT) ELECTRONICALLY SIGNED BY TAVO SCOTT, CLINICAL EDUCATOR ON 04/26/2019 AT 10:11 AM EST DISCLAIMER : THIS IS A VISIT SUMMARY EXTRACTED FROM THE [employer] CHART. IT IS NOT A COPY OF THE [employer] PROGRESS NOTE. MARINE
== END ==
LOC: M PAIN 10:30
PROVIDERS: ATTEND Nurse Practitioner Family
DX: M51.26 Other intervertebral disc displacement, lumbar region (principal); I10 Essential (primary) hypertension; M10.9 Gout, unspecified; J44.9 Chronic obstructive pulmonary disease, unspecified; Z86.73 Personal history of transient ischemic attack (TIA), and cerebral infarction without residual deficits; Z99.81 Dependence on supplemental oxygen; F41.9 Anxiety disorder, unspecified; Z79.01 Long term (current) use of anticoagulants; Z79.891 Long term (current) use of opiate analgesic; Z79.899 Other long term (current) drug therapy; Z93.2 Ileostomy status

== ENCOUNTER → 2019-07-12 | Outpatient (CLI) | payer MEDICARE ==
[~2019-07-12] MED LIST changes: -MECL-68 PO; +MECL1TAB31 PO
--- NOTE | 2019-07-13 04:37 | ECWPNPC ---
PATIENT NAME: CHIRAG PIERRE : 1950 GENDER: MALE VISIT DATE: 07/12/2019 DISCHARGE DATE: 07/12/19 1158 VISIT LOCKED DATE TIME: PHYSICIAN: TAVO PATEL RESOURCE: TAVO PATEL REASON FOR APPOINTMENT 1. LEG PAIN/MED MGMT HISTORY OF PRESENT ILLNESS HISTORY OF PRESENT ILLNESS: HERE FOR FOLLOW-UP OF CHRONIC LOWER EXTREMITY PAIN AND NEUROPATHY. REPORTING NEW ONSET OF LEFT ARM AND SHOULDER PAIN AND PARESTHESIAS. 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 WILL BE SEEING ORTHOPEDICS IN THE NEAR FUTURE REGARDING THAT. REPORTING POOR SLEEP AT NIGHT DUE TO LEGS JERKING. RATING PAIN LEVEL OF 5/10 VAS. ACCOMPANIED IN EXAM ROOM WITH HIS DAUGHTER. PAIN THE PATIENT DESCRIBES THE PAIN... FALL RISK SCREENING: SCREENING :NO FALLS REPORTED IN THE LAST YEAR CURRENT MEDICATIONS TAKING LOMOTIL 2.5-0.025 MG TABLET 1 TABLET NEEDED ORALLY FOUR TIMES A DAY TAKING LOPERAMIDE HCL 2 MG CAPSULE TAKE 2 CAPSULES BY MOUTH 4 TIMES DAILY ORAL TAKING ELIQUIS 5 MG TABLET 1 CAP ORAL BID TAKING MAGNESIUM OXIDE 400 (241.3 MG) MG TABLET TAKE 2 TABLET BY MOUTH ONCE DAILY ORAL FOUR TIMES DAILY TAKING PANTOPRAZOLE SODIUM 40 MG TABLET DELAYED RELEASE ORAL TAKING DIPHENOXYLATE-ATROPINE 2.5-0.025 MG TABLET (SCHEDULE V DRUG) TAKE 2 TABLETS BY MOUTH FOUR TIMES A DAY MAXIMUM DAILY DOSE OF 8 ORAL TAKING FOLIC ACID 1 MG TABLET TAKE 1 TABLET BY MOUTH ONCE DAILY ORAL TAKING ONDANSETRON 4MG ORAL NEEDED TAKING PROVENTIL 3 MLS INHALED EVERY 4 HOURS NEEDED TAKING SYMBICORT 160-4.5 MCG/ACT AEROSOL 2 PUFFS INHALATION TWICE A DAY TAKING FUROSEMIDE 20 MG TABLET 1 TABLET ORALLY ONCE A DAY TAKING CARTIA XT 180 MG CAPSULE EXTENDED RELEASE 24 HOUR 1 CAPSULE ORALLY ONCE A DAY TAKING GABAPENTIN 100 MG CAPSULE 1 CAPSULE ORALLY THREE TIMES DAILY TAKING BUTRANS 20 MCG/HR PATCH WEEKLY 1 PATCH TO SKIN TRANSDERMAL 1 PATCH [id number] TAKING BACLOFEN 20 MG TABLET 1 TABLET WITH FOOD OR MILK ORALLY EVERY 8 HRS TAKING NORCO 10-325 MG TABLET 1 TABLET NEEDED ORALLY EVERY 8 HRS MDD3 TAKING ROPINIROLE HCL 1 MG TABLET 1 TABLET 1 TO 3 HOURS BEFORE BEDTIME ORALLY ONCE A DAY TAKING NICOTINE 21 MG/24HR PATCH 24 HOUR APPLY ONE PATCH TO SKIN DAILY TRANSDERMAL NOT-TAKING NICORETTE 4 MG GUM 1 PIECE NEEDED MOUTH/THROAT 24 TIME(S) A DAY NOT-TAKING PSYLLIUM 28 % PACKET 1 PACKET WITH 8 OUNCES OF LIQUID NEEDED ORALLY BID NOT-TAKING FERROUS SULFATE 325 (65 FE) MG TABLET TAKE 1 TABLET BY MOUTH ONCE DAILY ORAL NOT-TAKING TRAZODONE HCL 50 MG TABLET TAKE 1 TABLET BY MOUTH AT BEDTIME IF NEEDED FOR SLEEP ORAL NOT-TAKING FAMOTIDINE 20 MG TABLET TAKE 1 TABLET BY MOUTH TWICE A DAY ORAL NOT-TAKING OCEAN NASAL SPRAY 0.65 % SOLUTION 2 SPRAYS IN EACH NOSTRIL NEEDED NASALLY EVERY 2 HRS NOT-TAKING TRAMADOL HCL 50 MG TABLET (SCHEDULE IV DRUG) TAKE 1 TABLET BY MOUTH TWICE A DAY WITH TYLENOL 325 MG IF NEEDED ... (REFER TO PRESCRIPTION NOTES). ORAL NOT-TAKING MECLIZINE HCL 25 MG TABLET TAKE 1 TABLET BY MOUTH THREE TIMES A DAY FOR DIZZINESS CRUSH TABLET.GIVE WITH APPLESAUCE/WATER ORAL NOT-TAKING GABAPENTIN 300 MG CAPSULE TAKE 3 CAPSULES IN THE MORNING,2 CAPSULES IN THE AFTERNOON,AND 3 CAPSULES AT BEDTIME ORAL MEDICATION LIST REVIEWED AND RECONCILED WITH THE PATIENT PAST MEDICAL HISTORY HTN, AFIB ON ELIQUIS GOUT OPEN ABDOMINAL WOUND CVA COPD ON HOME O2 ANXIETY SEPTIC SHOCK WITH ACUTE KIDNEY FAILURE ILEOSTOMY HAS HAD RHABDO , HAS FOOT DROP RIGHT SHOULDER TORN TENDON RESTLESS LEGS ALLERGIES N.K.D.A. SURGICAL HISTORY ILEOCECAL RESECTION WITH PROLONGED STAY DUE TO WOUND DEHISCENCE 2017 BACK SURGERY X 3 BOWEL ENTERCTOMY - TOTAL OF 3 ABDOMINAL SURGERIES 2018 COLONOSCOPY WITH BIOPSY 06/2018 EGD & COLONOSCOPY 08/2018 FAMILY HISTORY FATHER: , DIAGNOSED WITH OTHER MALIGNANT NEOPLASM OF UNSPECIFIED SITE, UNSPECIFIED HEART DISEASE MOTHER: , OTHER MALIGNANT NEOPLASM OF UNSPECIFIED SITE SIBLINGS: UNSPECIFIED HEART DISEASE SOCIAL HISTORY GENERAL: TOBACCO USE ARE YOU A:NONSMOKER HAS BEEN USING THE PATCH FOR A LITTLE OVER MONTH. PAIN CLINIC PFS, CLERGY, PUBLIC HEALTH REFERRALS PFS REFERRAL NEEDED?NO CLERGY REFERRAL NEEDED?NO PUBLIC HEALTH REFERRAL NEEDED?NO WAS THE PROVIDER NOTIFIED OF ANY PERTINENT INFO?NO HAS THE PATIENT BEEN EDUCATED REGARDING HIS/HER PLAN OF CARE?YES HAS THE PATIENT BEEN EDUCATED REGARDING PAIN, THE RISK FOR PAIN, THE IMPORTANCE OF EFFECTIVE PAIN MANAGEMENT, AND THE PAIN ASSESSMENT PROCESS?YES LATEX QUESTIONNAIRE LATEX ALLERGY : HAVE YOU EVER DEVELOPED ANY TYPE OF REACTION AFTER HANDLING LATEX PRODUCTS SUCH RUBBER GLOVES, CONDOMS, DIAPHRAGMS, BALLOONS, SOCKS, OR UNDERWEAR?NO LATEX ALLERGY : HAVE YOU EVER DEVELOPED ANY TYPE OF REACTION DURING OR AFTER DENTAL APPOINTMENT, VAGINAL/RECTAL EXAMINATION, SURGICAL PROCEDURE, OR ANY OTHER EXPOSURE?NO LATEX RISK : HAVE YOU EVER HAD ANY DIFFICULTY BREATHING OR HIVES AFTER EATING OR HANDLING ANY FRUITS, OR VEGETABLES; SUCH KIWI, BANANAS, STONE FRUITS, OR CHESTNUTSNO LATEX RISK : DO YOU HAVE A PREVIOUS PERSONAL HISTORY OF MORE THAN NINE SURGERIES, SPINA BIFIDA, OR REPEATED CATHERIZATIONS? NO LATEX RISK : ARE YOU FREQUENTLY EXPOSED TO LATEX PRODUCTS IN YOUR OCCUPATION?NO DATE ASKED : 09/06/2018 CAFFEINE CAFFEINE USE?YES HOW OFTEN AND HOW MUCH? COFFEE NOT QUITE DAILY ADVANCE DIRECTIVE ADVANCE DIRECTIVE DISCUSSED WITH PATIENT:YES HCP - JEN FISHER (DAUGHTER) DIET: NO ADDED SALT. SCIENTOLOGY [id number] JEHOVA[employer] WITNESS LANGUAGE LANGUAGES SPOKEN:TRINIDADIAN ALCOHOL SCREENING DID YOU HAVE A DRINK CONTAINING ALCOHOL IN THE PAST YEAR?YES POINTS0 INTERPRETATIONNEGATIVE RECREATIONAL DRUG USE DRUG USE?NO LEARNING BARRIERS / SPECIAL NEEDS HEARING IMPAIRED?YES VISION IMPAIRED?YES :CORRECTIVE LENSES READINESS TO LEARN?YES LEARNING PREFERENCES?NO SPECIAL DEVICES?YES :WHEELCHAIR QUIT SMOKING AND ALCOHOL DUE TO HEALTHREVIEWED WITH PATIENT 06/29/18 0957 JSREVIEWED WITH PATIENT 09/06/18 1149 JSREVIEWED WITH PATIENT 04/11/19 1059 JSREVIEWED WITH PATIENT 07/12/2019 1126 JS. HOSPITALIZATION/MAJOR DIAGNOSTIC PROCEDURE SEE ABOVE 78 DAYS IN [facility] 2018 BOWEL OBSTRUCTION 03/2019 REVIEW OF SYSTEMS REVIEWED BY: PROVIDER: TAVO SCOTT . CONSTITUTIONAL: ANY CHANGE IN YOUR MEDICAL CONDITION? NO . CHILLS NO . FEVER NO . INFECTION: DO YOU HAVE NEW INFECTIONS? NO . DO YOU HAVE HISTORY OF MRSA? NO . MUSCULOSKELETAL: ANY NEW PATTERNS OF PAIN OR NUMBNESS? YES, STATES NEW PAIN TO BILATERAL SHOULDERS DOWN TO HANDS - CAN'T STRAIGHTEN FINGERS ON LEFT HAND . GASTROENTEROLOGY: ANY NEW CHANGE IN BOWEL CONTROL? NO . GENITOURINARY: ANY NEW CHANGE IN BLADDER CONTROL? NO . IS THERE A CHANCE YOU COULD BE ? NO . HEMATOLOGY/LYMPH: DO YOU TAKE ANY BLOOD THINNERS? (FOR EXAMPLE- COUMADIN, PLAVIX, AGGRENOX, PLATEL, PRADAXA, OR XARELTO) YES, ELIQUIS . WHEN WAS YOUR LAST DOSE? DATE: 07/12/2019TIME: 1129 . NEUROLOGY: HAVE YOU FALLEN IN THE PAST 12 MONTHS? NO . ANY NEW EXTREMITY NUMBNESS OR WEAKNESS? YES, NUMBNESS TO FINGERS AND WEAKNESS TO HANDS . CARDIOLOGY: DO YOU HAVE A PACEMAKER OR DEFIBRILLATOR? NO . RESPIRATORY: HAVE YOU BEEN SICK IN THE PAST WEEK? NO . FEVER NO . FLU LIKE SYMPTOMS? NO . COUGH NO . INTEGUMENTARY: DO YOU HAVE ANY RASHES OR OPEN SORES? NO . ALLERGIC/IMMUNO: ARE YOU ALLERGIC TO IV DYE? NO . ANY NEW ALLERGIES? NO . PSYCHIATRIC: DO YOU HAVE THOUGHTS OF HURTING YOURSELF OR SOMEONE ELSE? NO . ARE YOU ABUSED, NEGLECTED, OR IN AN UNSAFE ENVIRONMENT? NO . ENDOCRINOLOGY: ARE YOU DIABETIC? NO . OTHER: DO YOU NEED ANY PRESCRIPTIONS? YES . IF YES, PLEASE LIST: ____GABAPENTIN . ANY NEW PROBLEMS WITH YOUR MEDICATIONS? NO . WHEN DID YOU LAST EAT? ____ . WHEN DID YOU LAST DRINK? ____ . WHAT DID YOU LAST DRINK? ____ . NAME OF PERSON DRIVING YOU HOME? ____ . DO YOU HAVE ANY OTHER QUESTIONS OR CONCERNS YES - HANDS AND SHOULDERS . VITAL SIGNS WT 179.6 LBS, HT 68 IN, BMI 27.31 INDEX, BP 141/80 MM HG, HR 78 /MIN, RR 18 /MIN, TEMP 98.1 F, OXYGEN SAT % 99%, SAFE IN ENV? (Y/N) YES, REVIEWED BY: AIMEE. EXAMINATION GENERAL EXAMINATION: GENERALAWAKE,ALERT ,PLEASANT . PSYCHAFFECT NORMAL . LUNGS:LUNG REYES ARE CLEAR TO AUSCULTATION BILATERALLY. GOOD MOVEMENT OF AIR . HEART:S1, S2 IN A REGULAR RATE AND RHYTHM. NO SIGNIFICANT MURMURS, RUBS OR GALLOPS NOTED . ASSESSMENTS NEUROPATHY - G62.9 (PRIMARY) LUMBAR DISC DISPLACEMENT WITHOUT MYELOPATHY - M51.26 TREATMENT NEUROPATHY INCREASE GABAPENTIN CAPSULE, 100 MG, 2 CAP, ORALLY, THREE TIMES DAILY, 30 DAY(S), 180, REFILLS 2 REFILL BUTRANS PATCH WEEKLY, 20 MCG/HR, 1 PATCH TO SKIN, TRANSDERMAL, 1 PATCH [id number], 30 DAYS, 4, REFILLS 5 REFILL BACLOFEN TABLET, 20 MG, 1 TABLET WITH FOOD OR MILK, ORALLY, EVERY 8 HRS, 30 DAYS, 90, REFILLS 5 REFILL NORCO TABLET, 10-325 MG, 1 TABLET NEEDED, ORALLY, EVERY 8 HRS MDD3, 30 DAYS, 90, REFILLS 0 NOTES: DUE TO LEG JERKING AND PAIN AT NIGHT DISRUPTING HIS SLEEP. WE WILL SLOWLY INCREASE GABAPENTIN TO 200 MG 3 TIMES A DAY OVER THE COURSE OF THE NEXT 10 DAYS., ISTOP REGISTRY REVIEWED AND DEMONSTRATES COMPLLIANCE. BRINGS IN MEDICATIONS WHICH IS APPROPRIATE FOR WHAT WAS DISPENSED. RECENT URINE TOXICOLOGY REVIEWED. NO UNAUTHORIZED MEDICATIONS. NO ILLICIT SUBSTANCES AND PRESCRIBED MEDICATIONS WERE PRESENT. PROCEDURE CODES FA211 ESTABILISHED PATIENT [facility] CHARGE DISPOSITION & COMMUNICATION FOLLOW UP 2 MONTHS (REASON: MED MGMNT) ELECTRONICALLY SIGNED BY TYLER PAINTING ON 07/12/2019 AT 02:17 PM EST DISCLAIMER : THIS IS A VISIT SUMMARY EXTRACTED FROM THE [employer] CHART. IT IS NOT A COPY OF THE [employer] PROGRESS NOTE. MARINE
== END ==
LOC: M PAIN 10:45
PROVIDERS: ATTEND Nurse Practitioner Family
DX: G62.9 Polyneuropathy, unspecified (principal); M51.26 Other intervertebral disc displacement, lumbar region; G89.29 Other chronic pain; I10 Essential (primary) hypertension; J44.9 Chronic obstructive pulmonary disease, unspecified; Z86.59 Personal history of other mental and behavioral disorders; G25.81 Restless legs syndrome; F17.290 Nicotine dependence, other tobacco product, uncomplicated; Z79.01 Long term (current) use of anticoagulants; Z79.891 Long term (current) use of opiate analgesic; Z79.899 Other long term (current) drug therapy

== ENCOUNTER → 2019-09-27 | Outpatient (CLI) | payer MEDICARE, OTHER ==
--- NOTE | 2019-09-29 01:08 | ECWPNPC ---
PATIENT NAME: CHIRAG PIERRE : 1950 GENDER: MALE VISIT DATE: 09/27/2019 DISCHARGE DATE: 09/27/19 1042 VISIT LOCKED DATE TIME: PHYSICIAN: TAVO PATEL RESOURCE: TAVO PATEL REASON FOR APPOINTMENT 1. LEG PAIN/MED MGMT [phone] HISTORY OF PRESENT ILLNESS HISTORY OF PRESENT ILLNESS: PATIENT AND DAUGHTER AGREED TO DO TELEMED VISIT VIA ZOOM TODAY. THIS IS A MEDICINE MANAGEMENT FOLLOW-UP FOR CHRONIC NEUROPATHIC PAIN, BILATERAL LOWER EXTREMITIES. RATING PAIN INTENSITY 5/10 VAS. AT HIS LAST VISIT IN JULY, WE INCREASED GABAPENTIN TO 200 MG 3 TIMES DAILY. PATIENT DOES NOT FEEL IT MADE MUCH OF A DIFFERENCE. DISCUSSED MEDICATION OPTIONS. PAIN THE PATIENT DESCRIBES THE PAIN... FALL RISK SCREENING: SCREENING :NO FALLS REPORTED IN THE LAST YEAR CURRENT MEDICATIONS TAKING LOMOTIL 2.5-0.025 MG TABLET 1 TABLET NEEDED ORALLY FOUR TIMES A DAY TAKING LOPERAMIDE HCL 2 MG CAPSULE TAKE 2 CAPSULES BY MOUTH 4 TIMES DAILY ORAL TAKING ELIQUIS 5 MG TABLET 1 CAP ORAL BID TAKING MAGNESIUM OXIDE 400 (241.3 MG) MG TABLET TAKE 2 TABLET BY MOUTH ONCE DAILY ORAL FOUR TIMES DAILY TAKING PANTOPRAZOLE SODIUM 40 MG TABLET DELAYED RELEASE ORAL TAKING DIPHENOXYLATE-ATROPINE 2.5-0.025 MG TABLET (SCHEDULE V DRUG) TAKE 2 TABLETS BY MOUTH FOUR TIMES A DAY MAXIMUM DAILY DOSE OF 8 ORAL TAKING FOLIC ACID 1 MG TABLET TAKE 1 TABLET BY MOUTH ONCE DAILY ORAL TAKING ONDANSETRON 4MG ORAL NEEDED TAKING PROVENTIL 3 MLS INHALED EVERY 4 HOURS NEEDED TAKING SYMBICORT 160-4.5 MCG/ACT AEROSOL 2 PUFFS INHALATION TWICE A DAY TAKING CARTIA XT 180 MG CAPSULE EXTENDED RELEASE 24 HOUR 1 CAPSULE ORALLY ONCE A DAY TAKING ROPINIROLE HCL 1 MG TABLET 1 TABLET 1 TO 3 HOURS BEFORE BEDTIME ORALLY ONCE A DAY TAKING NICOTINE 21 MG/24HR PATCH 24 HOUR APPLY ONE PATCH TO SKIN DAILY TRANSDERMAL TAKING GABAPENTIN 100 MG CAPSULE 2 CAP ORALLY THREE TIMES DAILY TAKING BUTRANS 20 MCG/HR PATCH WEEKLY 1 PATCH TO SKIN TRANSDERMAL 1 PATCH [id number] TAKING BACLOFEN 20 MG TABLET 1 TABLET WITH FOOD OR MILK ORALLY EVERY 8 HRS TAKING NORCO 10-325 MG TABLET 1 TABLET NEEDED ORALLY EVERY 8 HRS MDD3 NOT-TAKING FUROSEMIDE 20 MG TABLET 1 TABLET ORALLY ONCE A DAY NOT-TAKING NICORETTE 4 MG GUM 1 PIECE NEEDED MOUTH/THROAT 24 TIME(S) A DAY NOT-TAKING PSYLLIUM 28 % PACKET 1 PACKET WITH 8 OUNCES OF LIQUID NEEDED ORALLY BID NOT-TAKING FERROUS SULFATE 325 (65 FE) MG TABLET TAKE 1 TABLET BY MOUTH ONCE DAILY ORAL NOT-TAKING TRAZODONE HCL 50 MG TABLET TAKE 1 TABLET BY MOUTH AT BEDTIME IF NEEDED FOR SLEEP ORAL NOT-TAKING FAMOTIDINE 20 MG TABLET TAKE 1 TABLET BY MOUTH TWICE A DAY ORAL NOT-TAKING OCEAN NASAL SPRAY 0.65 % SOLUTION 2 SPRAYS IN EACH NOSTRIL NEEDED NASALLY EVERY 2 HRS NOT-TAKING TRAMADOL HCL 50 MG TABLET (SCHEDULE IV DRUG) TAKE 1 TABLET BY MOUTH TWICE A DAY WITH TYLENOL 325 MG IF NEEDED ... (REFER TO PRESCRIPTION NOTES). ORAL NOT-TAKING MECLIZINE HCL 25 MG TABLET TAKE 1 TABLET BY MOUTH THREE TIMES A DAY FOR DIZZINESS CRUSH TABLET.GIVE WITH APPLESAUCE/WATER ORAL NOT-TAKING GABAPENTIN 300 MG CAPSULE TAKE 3 CAPSULES IN THE MORNING,2 CAPSULES IN THE AFTERNOON,AND 3 CAPSULES AT BEDTIME ORAL MEDICATION LIST REVIEWED AND RECONCILED WITH THE PATIENT PAST MEDICAL HISTORY HTN, AFIB ON ELIQUIS GOUT OPEN ABDOMINAL WOUND CVA COPD ON HOME O2 ANXIETY SEPTIC SHOCK WITH ACUTE KIDNEY FAILURE ILEOSTOMY HAS HAD RHABDO , HAS FOOT DROP RIGHT SHOULDER TORN TENDON RESTLESS LEGS ALLERGIES N.K.D.A. SURGICAL HISTORY ILEOCECAL RESECTION WITH PROLONGED STAY DUE TO WOUND DEHISCENCE 2017 BACK SURGERY X 3 BOWEL ENTERCTOMY - TOTAL OF 3 ABDOMINAL SURGERIES 2018 COLONOSCOPY WITH BIOPSY 06/2018 EGD & COLONOSCOPY 08/2018 FAMILY HISTORY FATHER: , DIAGNOSED WITH OTHER MALIGNANT NEOPLASM OF UNSPECIFIED SITE, UNSPECIFIED HEART DISEASE MOTHER: , OTHER MALIGNANT NEOPLASM OF UNSPECIFIED SITE SIBLINGS: UNSPECIFIED HEART DISEASE SOCIAL HISTORY GENERAL: TOBACCO USE ARE YOU A:FORMER SMOKER HAS BEEN USING THE PATCH FOR A LITTLE OVER MONTH. HOW LONG HAS IT BEEN SINCE YOU LAST SMOKED?3-6 MONTHS LATEX QUESTIONNAIRE LATEX ALLERGY : HAVE YOU EVER DEVELOPED ANY TYPE OF REACTION AFTER HANDLING LATEX PRODUCTS SUCH RUBBER GLOVES, CONDOMS, DIAPHRAGMS, BALLOONS, SOCKS, OR UNDERWEAR?NO LATEX ALLERGY : HAVE YOU EVER DEVELOPED ANY TYPE OF REACTION DURING OR AFTER DENTAL APPOINTMENT, VAGINAL/RECTAL EXAMINATION, SURGICAL PROCEDURE, OR ANY OTHER EXPOSURE?NO LATEX RISK : HAVE YOU EVER HAD ANY DIFFICULTY BREATHING OR HIVES AFTER EATING OR HANDLING ANY FRUITS, OR VEGETABLES; SUCH KIWI, BANANAS, STONE FRUITS, OR CHESTNUTSNO LATEX RISK : DO YOU HAVE A PREVIOUS PERSONAL HISTORY OF MORE THAN NINE SURGERIES, SPINA BIFIDA, OR REPEATED CATHERIZATIONS? NO LATEX RISK : ARE YOU FREQUENTLY EXPOSED TO LATEX PRODUCTS IN YOUR OCCUPATION?NO DATE ASKED : 09/27/2019 ALCOHOL SCREENING DID YOU HAVE A DRINK CONTAINING ALCOHOL IN THE PAST YEAR?YES POINTS0 INTERPRETATIONNEGATIVE RECREATIONAL DRUG USE DRUG USE?NO CAFFEINE CAFFEINE USE?YES HOW OFTEN AND HOW MUCH? COFFEE NOT QUITE DAILY H[employer]UISM [id number] WITNESS LANGUAGE LANGUAGES SPOKEN:ICELANDIC LEARNING BARRIERS / SPECIAL NEEDS HEARING IMPAIRED?YES VISION IMPAIRED?YES :CORRECTIVE LENSES READINESS TO LEARN?YES LEARNING PREFERENCES?NO SPECIAL DEVICES?YES :WHEELCHAIR DIET: NO ADDED SALT. NEW PATIENT PAIN DIARY TODAY'S VISITNOTES 09/27/2019 PATIENT DESCRIBES PAIN :HAVE IT ALL THE TIME, THROBBING, SHOOTING FROM 0-10, WHAT LEVEL IS YOUR PAIN TODAY?5 PAIN CLINIC PFS, CLERGY, PUBLIC HEALTH REFERRALS PFS REFERRAL NEEDED?NO CLERGY REFERRAL NEEDED?NO PUBLIC HEALTH REFERRAL NEEDED?NO WAS THE PROVIDER NOTIFIED OF ANY PERTINENT INFO?NO HAS THE PATIENT BEEN EDUCATED REGARDING HIS/HER PLAN OF CARE?YES HAS THE PATIENT BEEN EDUCATED REGARDING PAIN, THE RISK FOR PAIN, THE IMPORTANCE OF EFFECTIVE PAIN MANAGEMENT, AND THE PAIN ASSESSMENT PROCESS?YES ADVANCE DIRECTIVE ADVANCE DIRECTIVE DISCUSSED WITH PATIENT:YES HCP - JEN FISHER (DAUGHTER) QUIT SMOKING AND ALCOHOL DUE TO HEALTH. HOSPITALIZATION/MAJOR DIAGNOSTIC PROCEDURE SEE ABOVE 78 DAYS IN [facility] 2017 BOWEL OBSTRUCTION 03/2019 REVIEW OF SYSTEMS REVIEWED BY: PROVIDER: TAVO SCOTT . CONSTITUTIONAL: ANY CHANGE IN YOUR MEDICAL CONDITION? NO . CHILLS NO . FEVER NO . INFECTION: DO YOU HAVE NEW INFECTIONS? NO . DO YOU HAVE HISTORY OF MRSA? NO . MUSCULOSKELETAL: ANY NEW PATTERNS OF PAIN OR NUMBNESS? NO . GASTROENTEROLOGY: ANY NEW CHANGE IN BOWEL CONTROL? NO . GENITOURINARY: ANY NEW CHANGE IN BLADDER CONTROL? NO . IS THERE A CHANCE YOU COULD BE ? NO . HEMATOLOGY/LYMPH: DO YOU TAKE ANY BLOOD THINNERS? (FOR EXAMPLE- COUMADIN, PLAVIX, AGGRENOX, PLATEL, PRADAXA, OR XARELTO) YES, ELIQUIS . WHEN WAS YOUR LAST DOSE? DATE: 09/27/2019TIME: 0700 . NEUROLOGY: HAVE YOU FALLEN IN THE PAST 12 MONTHS? NO . ANY NEW EXTREMITY NUMBNESS OR WEAKNESS? NO . CARDIOLOGY: DO YOU HAVE A PACEMAKER OR DEFIBRILLATOR? NO . RESPIRATORY: HAVE YOU BEEN SICK IN THE PAST WEEK? NO . FEVER NO . FLU LIKE SYMPTOMS? NO . COUGH NO . INTEGUMENTARY: DO YOU HAVE ANY RASHES OR OPEN SORES? NO . ALLERGIC/IMMUNO: ARE YOU ALLERGIC TO IV DYE? NO . ANY NEW ALLERGIES? NO . PSYCHIATRIC: DO YOU HAVE THOUGHTS OF HURTING YOURSELF OR SOMEONE ELSE? NO . ARE YOU ABUSED, NEGLECTED, OR IN AN UNSAFE ENVIRONMENT? NO . ENDOCRINOLOGY: ARE YOU DIABETIC? NO . OTHER: DO YOU NEED ANY PRESCRIPTIONS? NO . IF YES, PLEASE LIST: ____ . ANY NEW PROBLEMS WITH YOUR MEDICATIONS? NO . WHEN DID YOU LAST EAT? ____ . WHEN DID YOU LAST DRINK? ____ . WHAT DID YOU LAST DRINK? ____ . NAME OF PERSON DRIVING YOU HOME? ____ . DO YOU HAVE ANY OTHER QUESTIONS OR CONCERNS NO . EXAMINATION GENERAL EXAMINATION: GENERALNO ACUTE DISTRESS, WELL NOURISHED AND HYDRATED. DAUGHTER IS PRESENT DURING INTERVIEW. PSYCHAPPROPRIATE MOOD AND AFFECT . FACE:UNREMARKABLE. ASSESSMENTS NEUROPATHY - G62.9 (PRIMARY) TREATMENT NEUROPATHY INCREASE GABAPENTIN CAPSULE, 300 MG, 1 CAPSULE, ORALLY, BID, 30 DAY(S), 60, REFILLS 2 CONTINUE BUTRANS PATCH WEEKLY, 20 MCG/HR, 1 PATCH TO SKIN, TRANSDERMAL, 1 PATCH [id number] CONTINUE BACLOFEN TABLET, 20 MG, 1 TABLET WITH FOOD OR MILK, ORALLY, EVERY 8 HRS CONTINUE NORCO TABLET, 10-325 MG, 1 TABLET NEEDED, ORALLY, EVERY 8 HRS MDD3 NOTES: ISTOP REGISTRY REVIEWED AND DEMONSTRATES COMPLLIANCE. TODAY, WE INCREASED GABAPENTIN TO 300 MG CAPSULE TWICE A DAY. HE CURRENTLY IS TAKING 200 MG 3 TIMES A DAY. FOLLOW-UP WILL BE SCHEDULED IN 2 MONTHS FOR MEDICINE MANAGEMENT. TOTAL TIME SPENT DURING TELEMED VISIT WAS APPROXIMATELY 11 MINUTES. OTHERS NOTES: NO VITALS OBTAINED DUE TO VIRTUAL VISIT. DISPOSITION & COMMUNICATION FOLLOW UP 2 MONTHS (REASON: MED MGMNT) ELECTRONICALLY SIGNED BY TYLER PAINTING ON 09/28/2019 AT 02:06 PM EDT DISCLAIMER : THIS IS A VISIT SUMMARY EXTRACTED FROM THE [employer] CHART. IT IS NOT A COPY OF THE [employer] PROGRESS NOTE. MTDD
== END ==
LOC: M PAIN 10:15 → M TMPAIN 10:15
PROVIDERS: ATTEND Nurse Practitioner Family
DX: G62.9 Polyneuropathy, unspecified (principal); I10 Essential (primary) hypertension; Z79.891 Long term (current) use of opiate analgesic; Z79.899 Other long term (current) drug therapy; Z87.891 Personal history of nicotine dependence

== ENCOUNTER → 2020-03-27 | Outpatient (CLI) | payer MEDICARE, OTHER ==
--- NOTE | 2020-03-28 09:55 | ECWPNPC ---
PATIENT NAME: CHIRAG PIERRE : 1950 GENDER: MALE VISIT DATE: 03/27/2020 DISCHARGE DATE: 03/27/20 1050 VISIT LOCKED DATE TIME: PHYSICIAN: TAVO PATEL RESOURCE: TAVO PATEL REASON FOR APPOINTMENT 1. MED MGMT HISTORY OF PRESENT ILLNESS DEPRESSION SCREENING: PHQ-2 (2015 EDITION) LITTLE INTEREST OR PLEASURE IN DOING THINGS?NOT AT ALL FEELING DOWN, DEPRESSED, OR HOPELESS?NOT AT ALL TOTAL SCORE0 GENERAL: HERE FOR FOLLOW-UP OF CHRONIC LOW BACK PAIN AND LOWER EXTREMITY PAIN. FINDS CURRENT CHRONIC PAIN MEDICATION EFFECTIVE AT REDUCING PAIN AND KEEPING HIM FUNCTIONAL. DENIES ADVERSE SIDE EFFECTS. RATING PAIN LEVEL 6/10 VAS. - -. FALL RISK SCREENING: SCREENING :NO FALLS REPORTED IN THE LAST YEAR NONE PAIN SCREENING: PATIENT HAS A COMPLAINT OF ACUTE OR CHRONIC PAIN :YES LOCATION OF PAIN:LEG(S) INTENSITY OF PAIN (SCALE OF 1 TO 10):6 WHAT DOES YOUR PAIN FEEL LIKE:SHARP, SHOOTING DURATION:CONTINOUS PAIN IS INCREASED BY:ACTIVITIES, OTHERS PAIN IS DECREASED BY:USE OF PAIN MEDICATIONS NURSING NOTE: -. PAIN CENTER INTAKE QUESTIONS: DO YOU HAVE A HISTORY OF MRSA? :NO DO YOU TAKE A BLOOD THINNERS? :YES DO YOU HAVE ANY BLEEDING DISORDERS? :NO ANY NEW NUMBNESS OR WEAKNESS IN YOUR LEGS OR ARMS? :NO ANY PACEMAKER,DEFIBRILLATOR, OR DORSAL COLUMN STIMULATOR? :NO DO YOU HAVE ANY RASHES OR OPEN SORES? :NO ARE YOU ALLERGIC TO IV DYE? :NO ARE YOU DIABETIC? :NO ANY NEW PROBLEMS WITH YOUR MEDICATIONS? :NO HAVE YOU RECEIVED A VACCINE IN THE PAST 30 DAYS? :YES FLU VAC OVER TWO WEEEKS AGO DO YOU PLAN TO RECEIVE A VACCINE IN THE NEXT 21 DAYS? :NO DO YOU NEED ANY PRESCRIPTION? :NO DO YOU TAKE ANY IMMUNOSUPPRESSIVE MEDICATIONS? :NO IS THERE A CHANCE YOU COULD BE ? :NO ARE YOU BREAST FEEDING? :NO CURRENT MEDICATIONS TAKING LOMOTIL 2.5-0.025 MG TABLET 1 TABLET NEEDED ORALLY FOUR TIMES A DAY TAKING LOPERAMIDE HCL 2 MG CAPSULE TAKE 2 CAPSULES BY MOUTH 4 TIMES DAILY ORAL TAKING ELIQUIS 5 MG TABLET 1 CAP ORAL BID TAKING MAGNESIUM OXIDE 400 (241.3 MG) MG TABLET TAKE 2 TABLET BY MOUTH ONCE DAILY ORAL FOUR TIMES DAILY TAKING PANTOPRAZOLE SODIUM 40 MG TABLET DELAYED RELEASE ORAL TAKING DIPHENOXYLATE-ATROPINE 2.5-0.025 MG TABLET (SCHEDULE V DRUG) TAKE 2 TABLETS BY MOUTH FOUR TIMES A DAY MAXIMUM DAILY DOSE OF 8 ORAL TAKING FOLIC ACID 1 MG TABLET TAKE 1 TABLET BY MOUTH ONCE DAILY ORAL TAKING ONDANSETRON 4MG ORAL NEEDED TAKING PROVENTIL 3 MLS INHALED EVERY 4 HOURS NEEDED TAKING SYMBICORT 160-4.5 MCG/ACT AEROSOL 2 PUFFS INHALATION TWICE A DAY TAKING CARTIA XT 180 MG CAPSULE EXTENDED RELEASE 24 HOUR 1 CAPSULE ORALLY ONCE A DAY TAKING ROPINIROLE HCL 1 MG TABLET 1 TABLET 1 TO 3 HOURS BEFORE BEDTIME ORALLY ONCE A DAY TAKING NICOTINE 21 MG/24HR PATCH 24 HOUR APPLY ONE PATCH TO SKIN DAILY TRANSDERMAL TAKING BACLOFEN 20 MG TABLET 1 TABLET WITH FOOD OR MILK ORALLY EVERY 8 HRS TAKING GABAPENTIN 300 MG CAPSULE 1 CAPSULE ORALLY BID TAKING BUTRANS 20 MCG/HR PATCH WEEKLY 1 PATCH TO SKIN TRANSDERMAL 1 PATCH [id number] TAKING NORCO 10-325 MG TABLET 1 TABLET NEEDED ORALLY EVERY 8 HRS MDD3 NOT-TAKING FUROSEMIDE 20 MG TABLET 1 TABLET ORALLY ONCE A DAY NOT-TAKING NICORETTE 4 MG GUM 1 PIECE NEEDED MOUTH/THROAT 24 TIME(S) A DAY NOT-TAKING PSYLLIUM 28 % PACKET 1 PACKET WITH 8 OUNCES OF LIQUID NEEDED ORALLY BID NOT-TAKING FERROUS SULFATE 325 (65 FE) MG TABLET TAKE 1 TABLET BY MOUTH ONCE DAILY ORAL NOT-TAKING TRAZODONE HCL 50 MG TABLET TAKE 1 TABLET BY MOUTH AT BEDTIME IF NEEDED FOR SLEEP ORAL NOT-TAKING FAMOTIDINE 20 MG TABLET TAKE 1 TABLET BY MOUTH TWICE A DAY ORAL NOT-TAKING OCEAN NASAL SPRAY 0.65 % SOLUTION 2 SPRAYS IN EACH NOSTRIL NEEDED NASALLY EVERY 2 HRS NOT-TAKING TRAMADOL HCL 50 MG TABLET (SCHEDULE IV DRUG) TAKE 1 TABLET BY MOUTH TWICE A DAY WITH TYLENOL 325 MG IF NEEDED ... (REFER TO PRESCRIPTION NOTES). ORAL NOT-TAKING MECLIZINE HCL 25 MG TABLET TAKE 1 TABLET BY MOUTH THREE TIMES A DAY FOR DIZZINESS CRUSH TABLET.GIVE WITH APPLESAUCE/WATER ORAL NOT-TAKING GABAPENTIN 300 MG CAPSULE TAKE 3 CAPSULES IN THE MORNING,2 CAPSULES IN THE AFTERNOON,AND 3 CAPSULES AT BEDTIME ORAL MEDICATION LIST REVIEWED AND RECONCILED WITH THE PATIENT PAST MEDICAL HISTORY HTN, AFIB ON ELIQUIS GOUT OPEN ABDOMINAL WOUND CVA COPD ON HOME O2 ANXIETY SEPTIC SHOCK WITH ACUTE KIDNEY FAILURE ILEOSTOMY HAS HAD RHABDO , HAS FOOT DROP RIGHT SHOULDER TORN TENDON RESTLESS LEGS ALLERGIES N.K.D.A. SURGICAL HISTORY ILEOCECAL RESECTION WITH PROLONGED STAY DUE TO WOUND DEHISCENCE 2017 BACK SURGERY X 3 BOWEL ENTERCTOMY - TOTAL OF 3 ABDOMINAL SURGERIES 2018 COLONOSCOPY WITH BIOPSY 06/2018 EGD & COLONOSCOPY 08/2018 FAMILY HISTORY FATHER: , DIAGNOSED WITH UNSPECIFIED HEART DISEASE, OTHER MALIGNANT NEOPLASM OF UNSPECIFIED SITE MOTHER: , OTHER MALIGNANT NEOPLASM OF UNSPECIFIED SITE SIBLINGS: UNSPECIFIED HEART DISEASE SOCIAL HISTORY GENERAL: TOBACCO USE ARE YOU A:FORMER SMOKER HAS BEEN USING THE PATCH FOR A LITTLE OVER MONTH. HOW LONG HAS IT BEEN SINCE YOU LAST SMOKED?3-6 MONTHS LATEX QUESTIONNAIRE LATEX ALLERGY : HAVE YOU EVER DEVELOPED ANY TYPE OF REACTION AFTER HANDLING LATEX PRODUCTS SUCH RUBBER GLOVES, CONDOMS, DIAPHRAGMS, BALLOONS, SOCKS, OR UNDERWEAR?NO LATEX ALLERGY : HAVE YOU EVER DEVELOPED ANY TYPE OF REACTION DURING OR AFTER DENTAL APPOINTMENT, VAGINAL/RECTAL EXAMINATION, SURGICAL PROCEDURE, OR ANY OTHER EXPOSURE?NO LATEX RISK : HAVE YOU EVER HAD ANY DIFFICULTY BREATHING OR HIVES AFTER EATING OR HANDLING ANY FRUITS, OR VEGETABLES; SUCH KIWI, BANANAS, STONE FRUITS, OR CHESTNUTSNO LATEX RISK : DO YOU HAVE A PREVIOUS PERSONAL HISTORY OF MORE THAN NINE SURGERIES, SPINA BIFIDA, OR REPEATED CATHERIZATIONS? NO LATEX RISK : ARE YOU FREQUENTLY EXPOSED TO LATEX PRODUCTS IN YOUR OCCUPATION?NO DATE ASKED : 03/27/2020 ALCOHOL SCREENING DID YOU HAVE A DRINK CONTAINING ALCOHOL IN THE PAST YEAR?YES POINTS0 INTERPRETATIONNEGATIVE RECREATIONAL DRUG USE DRUG USE?NO CAFFEINE CAFFEINE USE?YES HOW OFTEN AND HOW MUCH? COFFEE NOT QUITE DAILY SABIANIST [id number] [employer] WITNESS LANGUAGE LANGUAGES SPOKEN:BAHAMIAN LEARNING BARRIERS / SPECIAL NEEDS HEARING IMPAIRED?YES VISION IMPAIRED?YES :CORRECTIVE LENSES READINESS TO LEARN?YES LEARNING PREFERENCES?NO SPECIAL DEVICES?YES :WHEELCHAIR OCCUPATION: DISABLED. DIET: NO ADDED SALT. EXERCISE: NO REGULAR EXERCISE, W/C BOUND. NEW PATIENT PAIN DIARY TODAY'S VISIT NOTES 09/27/2019, PATIENT DESCRIBES PAIN : HAVE IT ALL THE TIME, THROBBING, SHOOTING, FROM 0-10, WHAT LEVEL IS YOUR PAIN TODAY? 5. PAIN CLINIC PFS, CLERGY, PUBLIC HEALTH REFERRALS PFS REFERRAL NEEDED?NO CLERGY REFERRAL NEEDED?NO PUBLIC HEALTH REFERRAL NEEDED?NO WAS THE PROVIDER NOTIFIED OF ANY PERTINENT INFO?NO HAS THE PATIENT BEEN EDUCATED REGARDING HIS/HER PLAN OF CARE?YES HAS THE PATIENT BEEN EDUCATED REGARDING PAIN, THE RISK FOR PAIN, THE IMPORTANCE OF EFFECTIVE PAIN MANAGEMENT, AND THE PAIN ASSESSMENT PROCESS?YES ADVANCE DIRECTIVE ADVANCE DIRECTIVE DISCUSSED WITH PATIENT:YES HCP - JEN FISHER (DAUGHTER) QUIT SMOKING AND ALCOHOL DUE TO HEALTH. HOSPITALIZATION/MAJOR DIAGNOSTIC PROCEDURE SEE ABOVE 78 DAYS IN [facility] LAST 2017 BOWEL OBSTRUCTION 03/2019 REVIEW OF SYSTEMS CONSTITUTIONAL: ANY RECENT FEVER NO . CHILLS NO . WEIGHT CHANGE OF UNKNOWN REASONS NO . GASTROENTEROLOGY: NEW UNEXPLAINABLE CHANGES IN BOWEL CONTROL NO . CONSTIPATION NO . GENITOURINARY: ANY NEW CHANGE IN BLADDER CONTROL? NO . NEUROLOGY: NEW ONSET DIZZINESS OR NEUROLOGICAL CHANGES NOT MENTIONED NO . NEW NUMBNESS OR PAIN PATTERNS NOT MENTIONED AND PERTINENT TO TODAY'S VISIT NO . CARDIOLOGY: NEW CHEST PRESSURE NO . NEW CHEST PAIN NO . RESPIRATORY: UNEXPLAINABLE COUGH NO . NEW SHORTNESS OF BREATH NO . VITAL SIGNS WT 162.6 LBS, HT 68 IN, BMI 24.72 INDEX, BP 114/63 MM HG, HR 61 /MIN, RR 18 /MIN, TEMP 98.8 F, OXYGEN SAT % 99%, NA INITIALS AW 0955. EXAMINATION GENERAL EXAMINATION: GENERALAWAKE,ALERT ,PLEASANT . PSYCHAFFECT NORMAL . LUNGS:LUNG REYES ARE CLEAR TO AUSCULTATION BILATERALLY. GOOD MOVEMENT OF AIR . HEART:S1, S2 IN A REGULAR RATE AND RHYTHM. NO SIGNIFICANT MURMURS, RUBS OR GALLOPS NOTED . ASSESSMENTS NEUROPATHY - G62.9 (PRIMARY) LUMBAR DISC DISPLACEMENT WITHOUT MYELOPATHY - M51.26 CHRONIC PRESCRIPTION OPIATE USE - Z79.891 TREATMENT NEUROPATHY CONTINUE GABAPENTIN CAPSULE, 300 MG, 1 CAPSULE, ORALLY, BID CONTINUE BUTRANS PATCH WEEKLY, 20 MCG/HR, 1 PATCH TO SKIN, TRANSDERMAL, 1 PATCH [id number] CONTINUE NORCO TABLET, 10-325 MG, 1 TABLET NEEDED, ORALLY, EVERY 8 HRS MDD3 NOTES: ISTOP REGISTRY REVIEWED AND DEMONSTRATES COMPLLIANCE. BRINGS IN MEDICATIONS WHICH IS APPROPRIATE FOR WHAT WAS DISPENSED. RECENT URINE TOXICOLOGY REVIEWED. NO UNAUTHORIZED MEDICATIONS. NO ILLICIT SUBSTANCES AND PRESCRIBED MEDICATIONS WERE PRESENT. URINE TOXICOLOGY TODAY , [facility] NARCOTIC AGREEMENT WAS REVIEWED AND SIGNED TODAY BY THE PATIENT. SEE ATTACHED DOCUMENT FOR FULL DETAILS; SPECIFIC ISSUES WERE REVIEWED: 1) KEEP PAIN MEDS IN THEIR ORIGINAL BOTTLES AND ANY WEEKLY PLANNERS ARE TO BE BROUGHT TO THE PAIN CENTER AT EVERY VISIT. 2) THE PATIENT IS NOT TO INCREASE DOSING OR TIMING OF THEIR PAIN MEDICATION WITHOUT SPECIFIC DIRECTION OF THEIR PAIN CENTERPROVIDER (NOT ER OR OTHER PROVIDERS). 3) ALL PAIN MEDS ARE TO BE KEPT SECURED, IN A LOCKED BOX. 4) NO PAIN MEDS ARE TO BE SHARED WITH ANY OTHER PERSON FOR ANY REASON. 5) NO PAIN MEDS MAY BE TAKEN FROM ANY FRIENDS OR RELATIVES FOR ANY REASON 6) NO MEDS OR SUBSTANCES WHICH ARE NOT LEGAL ARE TO BE USED- NO MARIJUANA, NO COCAINE, AMPHETAMINES, HEROIN, OR OTHERS ARE EVER TO BE USED. 7)URINE TESTING IS DONE TO ACCOUNT FOR MEDS AND SUBSTANCES BEING TAKEN AND WILL BE DONE RANDOMLY. PROCEDURE CODES FA211 ESTABILISHED PATIENT [facility] FACILITY CHARGE DISPOSITION & COMMUNICATION FOLLOW UP 3 MONTHS (REASON: MEDICATION MANAGEMENT/NEUROPATHY) ELECTRONICALLY SIGNED BY TYLER PAINTING ON 03/28/2020 AT 09:54 AM EDT DISCLAIMER : THIS IS A VISIT SUMMARY EXTRACTED FROM THE [employer] CHART. IT IS NOT A COPY OF THE [employer] PROGRESS NOTE. MARINE
--- NOTE | 2020-03-28 09:57 | ECWPNPC ---
PATIENT NAME: CHIRAG PIERRE : 1950 GENDER: MALE VISIT DATE: 03/27/2020 DISCHARGE DATE: 03/27/20 1050 VISIT LOCKED DATE TIME: PHYSICIAN: TAVO PATEL RESOURCE: TAVO PATEL REASON FOR APPOINTMENT 1. MED MGMT HISTORY OF PRESENT ILLNESS DEPRESSION SCREENING: PHQ-2 (2015 EDITION) LITTLE INTEREST OR PLEASURE IN DOING THINGS?NOT AT ALL FEELING DOWN, DEPRESSED, OR HOPELESS?NOT AT ALL TOTAL SCORE0 GENERAL: HERE FOR FOLLOW-UP OF CHRONIC LOW BACK PAIN AND LOWER EXTREMITY PAIN. FINDS CURRENT CHRONIC PAIN MEDICATION EFFECTIVE AT REDUCING PAIN AND KEEPING HIM FUNCTIONAL. DENIES ADVERSE SIDE EFFECTS. RATING PAIN LEVEL 6/10 VAS. - -. FALL RISK SCREENING: SCREENING :NO FALLS REPORTED IN THE LAST YEAR NONE PAIN SCREENING: PATIENT HAS A COMPLAINT OF ACUTE OR CHRONIC PAIN :YES LOCATION OF PAIN:LEG(S) INTENSITY OF PAIN (SCALE OF 1 TO 10):6 WHAT DOES YOUR PAIN FEEL LIKE:SHARP, SHOOTING DURATION:CONTINOUS PAIN IS INCREASED BY:ACTIVITIES, OTHERS PAIN IS DECREASED BY:USE OF PAIN MEDICATIONS NURSING NOTE: -. PAIN CENTER INTAKE QUESTIONS: DO YOU HAVE A HISTORY OF MRSA? :NO DO YOU TAKE A BLOOD THINNERS? :YES DO YOU HAVE ANY BLEEDING DISORDERS? :NO ANY NEW NUMBNESS OR WEAKNESS IN YOUR LEGS OR ARMS? :NO ANY PACEMAKER,DEFIBRILLATOR, OR DORSAL COLUMN STIMULATOR? :NO DO YOU HAVE ANY RASHES OR OPEN SORES? :NO ARE YOU ALLERGIC TO IV DYE? :NO ARE YOU DIABETIC? :NO ANY NEW PROBLEMS WITH YOUR MEDICATIONS? :NO HAVE YOU RECEIVED A VACCINE IN THE PAST 30 DAYS? :YES FLU VAC OVER TWO WEEEKS AGO DO YOU PLAN TO RECEIVE A VACCINE IN THE NEXT 21 DAYS? :NO DO YOU NEED ANY PRESCRIPTION? :NO DO YOU TAKE ANY IMMUNOSUPPRESSIVE MEDICATIONS? :NO IS THERE A CHANCE YOU COULD BE ? :NO ARE YOU BREAST FEEDING? :NO CURRENT MEDICATIONS TAKING LOMOTIL 2.5-0.025 MG TABLET 1 TABLET NEEDED ORALLY FOUR TIMES A DAY TAKING LOPERAMIDE HCL 2 MG CAPSULE TAKE 2 CAPSULES BY MOUTH 4 TIMES DAILY ORAL TAKING ELIQUIS 5 MG TABLET 1 CAP ORAL BID TAKING MAGNESIUM OXIDE 400 (241.3 MG) MG TABLET TAKE 2 TABLET BY MOUTH ONCE DAILY ORAL FOUR TIMES DAILY TAKING PANTOPRAZOLE SODIUM 40 MG TABLET DELAYED RELEASE ORAL TAKING DIPHENOXYLATE-ATROPINE 2.5-0.025 MG TABLET (SCHEDULE V DRUG) TAKE 2 TABLETS BY MOUTH FOUR TIMES A DAY MAXIMUM DAILY DOSE OF 8 ORAL TAKING FOLIC ACID 1 MG TABLET TAKE 1 TABLET BY MOUTH ONCE DAILY ORAL TAKING ONDANSETRON 4MG ORAL NEEDED TAKING PROVENTIL 3 MLS INHALED EVERY 4 HOURS NEEDED TAKING SYMBICORT 160-4.5 MCG/ACT AEROSOL 2 PUFFS INHALATION TWICE A DAY TAKING CARTIA XT 180 MG CAPSULE EXTENDED RELEASE 24 HOUR 1 CAPSULE ORALLY ONCE A DAY TAKING ROPINIROLE HCL 1 MG TABLET 1 TABLET 1 TO 3 HOURS BEFORE BEDTIME ORALLY ONCE A DAY TAKING NICOTINE 21 MG/24HR PATCH 24 HOUR APPLY ONE PATCH TO SKIN DAILY TRANSDERMAL TAKING BACLOFEN 20 MG TABLET 1 TABLET WITH FOOD OR MILK ORALLY EVERY 8 HRS TAKING GABAPENTIN 300 MG CAPSULE 1 CAPSULE ORALLY BID TAKING BUTRANS 20 MCG/HR PATCH WEEKLY 1 PATCH TO SKIN TRANSDERMAL 1 PATCH [id number] TAKING NORCO 10-325 MG TABLET 1 TABLET NEEDED ORALLY EVERY 8 HRS MDD3 NOT-TAKING FUROSEMIDE 20 MG TABLET 1 TABLET ORALLY ONCE A DAY NOT-TAKING NICORETTE 4 MG GUM 1 PIECE NEEDED MOUTH/THROAT 24 TIME(S) A DAY NOT-TAKING PSYLLIUM 28 % PACKET 1 PACKET WITH 8 OUNCES OF LIQUID NEEDED ORALLY BID NOT-TAKING FERROUS SULFATE 325 (65 FE) MG TABLET TAKE 1 TABLET BY MOUTH ONCE DAILY ORAL NOT-TAKING TRAZODONE HCL 50 MG TABLET TAKE 1 TABLET BY MOUTH AT BEDTIME IF NEEDED FOR SLEEP ORAL NOT-TAKING FAMOTIDINE 20 MG TABLET TAKE 1 TABLET BY MOUTH TWICE A DAY ORAL NOT-TAKING OCEAN NASAL SPRAY 0.65 % SOLUTION 2 SPRAYS IN EACH NOSTRIL NEEDED NASALLY EVERY 2 HRS NOT-TAKING TRAMADOL HCL 50 MG TABLET (SCHEDULE IV DRUG) TAKE 1 TABLET BY MOUTH TWICE A DAY WITH TYLENOL 325 MG IF NEEDED ... (REFER TO PRESCRIPTION NOTES). ORAL NOT-TAKING MECLIZINE HCL 25 MG TABLET TAKE 1 TABLET BY MOUTH THREE TIMES A DAY FOR DIZZINESS CRUSH TABLET.GIVE WITH APPLESAUCE/WATER ORAL NOT-TAKING GABAPENTIN 300 MG CAPSULE TAKE 3 CAPSULES IN THE MORNING,2 CAPSULES IN THE AFTERNOON,AND 3 CAPSULES AT BEDTIME ORAL MEDICATION LIST REVIEWED AND RECONCILED WITH THE PATIENT PAST MEDICAL HISTORY HTN, AFIB ON ELIQUIS GOUT OPEN ABDOMINAL WOUND CVA COPD ON HOME O2 ANXIETY SEPTIC SHOCK WITH ACUTE KIDNEY FAILURE ILEOSTOMY HAS HAD RHABDO , HAS FOOT DROP RIGHT SHOULDER TORN TENDON RESTLESS LEGS ALLERGIES N.K.D.A. SURGICAL HISTORY ILEOCECAL RESECTION WITH PROLONGED STAY DUE TO WOUND DEHISCENCE 2017 BACK SURGERY X 3 BOWEL ENTERCTOMY - TOTAL OF 3 ABDOMINAL SURGERIES 2018 COLONOSCOPY WITH BIOPSY 06/2018 EGD & COLONOSCOPY 08/2018 FAMILY HISTORY FATHER: , DIAGNOSED WITH UNSPECIFIED HEART DISEASE, OTHER MALIGNANT NEOPLASM OF UNSPECIFIED SITE MOTHER: , OTHER MALIGNANT NEOPLASM OF UNSPECIFIED SITE SIBLINGS: UNSPECIFIED HEART DISEASE SOCIAL HISTORY GENERAL: TOBACCO USE ARE YOU A:FORMER SMOKER HAS BEEN USING THE PATCH FOR A LITTLE OVER MONTH. HOW LONG HAS IT BEEN SINCE YOU LAST SMOKED?3-6 MONTHS LATEX QUESTIONNAIRE LATEX ALLERGY : HAVE YOU EVER DEVELOPED ANY TYPE OF REACTION AFTER HANDLING LATEX PRODUCTS SUCH RUBBER GLOVES, CONDOMS, DIAPHRAGMS, BALLOONS, SOCKS, OR UNDERWEAR?NO LATEX ALLERGY : HAVE YOU EVER DEVELOPED ANY TYPE OF REACTION DURING OR AFTER DENTAL APPOINTMENT, VAGINAL/RECTAL EXAMINATION, SURGICAL PROCEDURE, OR ANY OTHER EXPOSURE?NO LATEX RISK : HAVE YOU EVER HAD ANY DIFFICULTY BREATHING OR HIVES AFTER EATING OR HANDLING ANY FRUITS, OR VEGETABLES; SUCH KIWI, BANANAS, STONE FRUITS, OR CHESTNUTSNO LATEX RISK : DO YOU HAVE A PREVIOUS PERSONAL HISTORY OF MORE THAN NINE SURGERIES, SPINA BIFIDA, OR REPEATED CATHERIZATIONS? NO LATEX RISK : ARE YOU FREQUENTLY EXPOSED TO LATEX PRODUCTS IN YOUR OCCUPATION?NO DATE ASKED : 03/27/2020 ALCOHOL SCREENING DID YOU HAVE A DRINK CONTAINING ALCOHOL IN THE PAST YEAR?YES POINTS0 INTERPRETATIONNEGATIVE RECREATIONAL DRUG USE DRUG USE?NO CAFFEINE CAFFEINE USE?YES HOW OFTEN AND HOW MUCH? COFFEE NOT QUITE DAILY TENRIISM [id number] [employer] WITNESS LANGUAGE LANGUAGES SPOKEN:[place]ORE[place] LEARNING BARRIERS / SPECIAL NEEDS HEARING IMPAIRED?YES VISION IMPAIRED?YES :CORRECTIVE LENSES READINESS TO LEARN?YES LEARNING PREFERENCES?NO SPECIAL DEVICES?YES :WHEELCHAIR OCCUPATION: DISABLED. DIET: NO ADDED SALT. EXERCISE: NO REGULAR EXERCISE, W/C BOUND. NEW PATIENT PAIN DIARY TODAY'S VISIT NOTES 09/27/2019, PATIENT DESCRIBES PAIN : HAVE IT ALL THE TIME, THROBBING, SHOOTING, FROM 0-10, WHAT LEVEL IS YOUR PAIN TODAY? 5. PAIN CLINIC PFS, CLERGY, PUBLIC HEALTH REFERRALS PFS REFERRAL NEEDED?NO CLERGY REFERRAL NEEDED?NO PUBLIC HEALTH REFERRAL NEEDED?NO WAS THE PROVIDER NOTIFIED OF ANY PERTINENT INFO?NO HAS THE PATIENT BEEN EDUCATED REGARDING HIS/HER PLAN OF CARE?YES HAS THE PATIENT BEEN EDUCATED REGARDING PAIN, THE RISK FOR PAIN, THE IMPORTANCE OF EFFECTIVE PAIN MANAGEMENT, AND THE PAIN ASSESSMENT PROCESS?YES ADVANCE DIRECTIVE ADVANCE DIRECTIVE DISCUSSED WITH PATIENT:YES HCP - JEN FISHER (DAUGHTER) QUIT SMOKING AND ALCOHOL DUE TO HEALTH. HOSPITALIZATION/MAJOR DIAGNOSTIC PROCEDURE SEE ABOVE 78 DAYS IN [facility] LAST 2017 BOWEL OBSTRUCTION 03/2019 REVIEW OF SYSTEMS CONSTITUTIONAL: ANY RECENT FEVER NO . CHILLS NO . WEIGHT CHANGE OF UNKNOWN REASONS NO . GASTROENTEROLOGY: NEW UNEXPLAINABLE CHANGES IN BOWEL CONTROL NO . CONSTIPATION NO . GENITOURINARY: ANY NEW CHANGE IN BLADDER CONTROL? NO . NEUROLOGY: NEW ONSET DIZZINESS OR NEUROLOGICAL CHANGES NOT MENTIONED NO . NEW NUMBNESS OR PAIN PATTERNS NOT MENTIONED AND PERTINENT TO TODAY'S VISIT NO . CARDIOLOGY: NEW CHEST PRESSURE NO . NEW CHEST PAIN NO . RESPIRATORY: UNEXPLAINABLE COUGH NO . NEW SHORTNESS OF BREATH NO . VITAL SIGNS WT 162.6 LBS, HT 68 IN, BMI 24.72 INDEX, BP 114/63 MM HG, HR 61 /MIN, RR 18 /MIN, TEMP 98.8 F, OXYGEN SAT % 99%, NA INITIALS AW 0955. EXAMINATION GENERAL EXAMINATION: GENERALAWAKE,ALERT ,PLEASANT . PSYCHAFFECT NORMAL . LUNGS:LUNG REYES ARE CLEAR TO AUSCULTATION BILATERALLY. GOOD MOVEMENT OF AIR . HEART:S1, S2 IN A REGULAR RATE AND RHYTHM. NO SIGNIFICANT MURMURS, RUBS OR GALLOPS NOTED . ASSESSMENTS NEUROPATHY - G62.9 (PRIMARY) LUMBAR DISC DISPLACEMENT WITHOUT MYELOPATHY - M51.26 CHRONIC PRESCRIPTION OPIATE USE - Z79.891 TREATMENT NEUROPATHY CONTINUE GABAPENTIN CAPSULE, 300 MG, 1 CAPSULE, ORALLY, BID CONTINUE BUTRANS PATCH WEEKLY, 20 MCG/HR, 1 PATCH TO SKIN, TRANSDERMAL, 1 PATCH [id number] CONTINUE NORCO TABLET, 10-325 MG, 1 TABLET NEEDED, ORALLY, EVERY 8 HRS MDD3 NOTES: ISTOP REGISTRY REVIEWED AND DEMONSTRATES COMPLLIANCE. BRINGS IN MEDICATIONS WHICH IS APPROPRIATE FOR WHAT WAS DISPENSED. RECENT URINE TOXICOLOGY REVIEWED. NO UNAUTHORIZED MEDICATIONS. NO ILLICIT SUBSTANCES AND PRESCRIBED MEDICATIONS WERE PRESENT. URINE TOXICOLOGY TODAY , [facility] NARCOTIC AGREEMENT WAS REVIEWED AND SIGNED TODAY BY THE PATIENT. SEE ATTACHED DOCUMENT FOR FULL DETAILS; SPECIFIC ISSUES WERE REVIEWED: 1) KEEP PAIN MEDS IN THEIR ORIGINAL BOTTLES AND ANY WEEKLY PLANNERS ARE TO BE BROUGHT TO THE PAIN CENTER AT EVERY VISIT. 2) THE PATIENT IS NOT TO INCREASE DOSING OR TIMING OF THEIR PAIN MEDICATION WITHOUT SPECIFIC DIRECTION OF THEIR PAIN CENTERPROVIDER (NOT ER OR OTHER PROVIDERS). 3) ALL PAIN MEDS ARE TO BE KEPT SECURED, IN A LOCKED BOX. 4) NO PAIN MEDS ARE TO BE SHARED WITH ANY OTHER PERSON FOR ANY REASON. 5) NO PAIN MEDS MAY BE TAKEN FROM ANY FRIENDS OR RELATIVES FOR ANY REASON 6) NO MEDS OR SUBSTANCES WHICH ARE NOT LEGAL ARE TO BE USED- NO MARIJUANA, NO COCAINE, AMPHETAMINES, HEROIN, OR OTHERS ARE EVER TO BE USED. 7)URINE TESTING IS DONE TO ACCOUNT FOR MEDS AND SUBSTANCES BEING TAKEN AND WILL BE DONE RANDOMLY. PROCEDURE CODES FA211 ESTABILISHED PATIENT [facility] FACILITY CHARGE DISPOSITION & COMMUNICATION FOLLOW UP 3 MONTHS (REASON: MEDICATION MANAGEMENT/NEUROPATHY) ELECTRONICALLY SIGNED BY TYLER PAINTING ON 03/28/2020 AT 09:54 AM EDT DISCLAIMER : THIS IS A VISIT SUMMARY EXTRACTED FROM THE [employer] CHART. IT IS NOT A COPY OF THE [employer] PROGRESS NOTE. MARINE
== END ==
LOC: M PAIN 09:30
PROVIDERS: ATTEND Nurse Practitioner Family
DX: G62.9 Polyneuropathy, unspecified (principal); M51.26 Other intervertebral disc displacement, lumbar region; G89.29 Other chronic pain; I10 Essential (primary) hypertension; J44.9 Chronic obstructive pulmonary disease, unspecified; G25.81 Restless legs syndrome; F17.290 Nicotine dependence, other tobacco product, uncomplicated; Z86.73 Personal history of transient ischemic attack (TIA), and cerebral infarction without residual deficits; Z86.59 Personal history of other mental and behavioral disorders; Z79.01 Long term (current) use of anticoagulants; Z79.899 Other long term (current) drug therapy

== ENCOUNTER → 2020-06-26 | Outpatient (CLI) | payer MEDICARE, OTHER ==
[~2020-06-26] MED LIST changes: +GABA-282 PO; -GABA-843 PO; -MAG400TA PO; +MAGN400T35 PO; +SIME80CH5 PO; -SIME80TA PO
--- NOTE | 2020-06-27 23:17 | ECWPNPC ---
PATIENT NAME: CHIRAG PIERRE : 1950 GENDER: MALE VISIT DATE: 06/26/2020 DISCHARGE DATE: 06/26/20 1204 VISIT LOCKED DATE TIME: PHYSICIAN: TAVO PATEL RESOURCE: TAVO PATEL REASON FOR APPOINTMENT 1. MEDICATION HISTORY OF PRESENT ILLNESS GENERAL: HERE FOR FOLLOW-UP OF CHRONIC LOW BACK PAIN AND LOWER EXTREMITY PAIN. FINDS CURRENT CHRONIC PAIN MEDICATION EFFECTIVE AT REDUCING PAIN AND KEEPING HIM FUNCTIONAL. DENIES ADVERSE SIDE EFFECTS. RATING PAIN LEVEL 6/10 VAS. - - -. FALL RISK SCREENING: SCREENING :NO FALLS REPORTED IN THE LAST YEAR PAIN SCREENING: PATIENT HAS A COMPLAINT OF ACUTE OR CHRONIC PAIN :YES LOCATION OF PAIN:LEG(S) INTENSITY OF PAIN (SCALE OF 1 TO 10):5 WHAT DOES YOUR PAIN FEEL LIKE:SHOOTING, OTHER SHOCKS DURATION:INTERMITTENT PAIN IS INCREASED BY: STATES IT IS "RANDOM" PAIN IS DECREASED BY:USE OF PAIN MEDICATIONS, OTHERS RESTING AND ELEVATING LEGS NURSING NOTE: -. PAIN CENTER INTAKE QUESTIONS: DO YOU HAVE A HISTORY OF MRSA? :NO DO YOU TAKE A BLOOD THINNERS? :YES ELIQUIS DO YOU HAVE ANY BLEEDING DISORDERS? :NO ANY NEW NUMBNESS OR WEAKNESS IN YOUR LEGS OR ARMS? :NO ANY PACEMAKER,DEFIBRILLATOR, OR DORSAL COLUMN STIMULATOR? :NO DO YOU HAVE ANY RASHES OR OPEN SORES? :NO ARE YOU ALLERGIC TO IV DYE? :NO ARE YOU DIABETIC? :NO ANY NEW PROBLEMS WITH YOUR MEDICATIONS? :NO HAVE YOU RECEIVED A VACCINE IN THE PAST 30 DAYS? :NO DO YOU PLAN TO RECEIVE A VACCINE IN THE NEXT 21 DAYS? :YES IF SO WHAT VACCINE AND WHEN? WANTS COVID VACCINE WHEN AVAILABLE DO YOU NEED ANY PRESCRIPTION? :YES BUPRENORPHINE PATCH, NORCO & GABAPENTIN DO YOU TAKE ANY IMMUNOSUPPRESSIVE MEDICATIONS? :NO IS THERE A CHANCE YOU COULD BE ? :NO ARE YOU BREAST FEEDING? :NO CURRENT MEDICATIONS TAKING LOMOTIL 2.5-0.025 MG TABLET 1 TABLET NEEDED ORALLY FOUR TIMES A DAY TAKING LOPERAMIDE HCL 2 MG CAPSULE TAKE 2 CAPSULES BY MOUTH 4 TIMES DAILY ORAL TAKING ELIQUIS 5 MG TABLET 1 CAP ORAL BID TAKING MAGNESIUM OXIDE 400 (241.3 MG) MG TABLET TAKE 2 TABLET BY MOUTH ONCE DAILY ORAL FOUR TIMES DAILY TAKING PANTOPRAZOLE SODIUM 40 MG TABLET DELAYED RELEASE 1 TABLET ORAL DAILY TAKING DIPHENOXYLATE-ATROPINE 2.5-0.025 MG TABLET (SCHEDULE V DRUG) TAKE 2 TABLETS BY MOUTH FOUR TIMES A DAY MAXIMUM DAILY DOSE OF 8 ORAL TAKING FOLIC ACID 1 MG TABLET TAKE 1 TABLET BY MOUTH ONCE DAILY ORAL TAKING ONDANSETRON 4MG ORAL NEEDED TAKING CARTIA XT 180 MG CAPSULE EXTENDED RELEASE 24 HOUR 1 CAPSULE ORALLY ONCE A DAY TAKING ROPINIROLE HCL 1 MG TABLET 1 TABLET 1 TO 3 HOURS BEFORE BEDTIME ORALLY ONCE A DAY TAKING NICOTINE 21 MG/24HR PATCH 24 HOUR APPLY ONE PATCH TO SKIN DAILY TRANSDERMAL TAKING GABAPENTIN 300 MG CAPSULE 1 CAPSULE ORALLY BID TAKING BUTRANS 20 MCG/HR PATCH WEEKLY 1 PATCH TO SKIN TRANSDERMAL 1 PATCH [id number] TAKING BACLOFEN 20 MG TABLET 1 TABLET WITH FOOD OR MILK ORALLY EVERY 8 HRS TAKING NORCO 10-325 MG TABLET 1 TABLET NEEDED ORALLY EVERY 8 HRS MDD3 TAKING FUROSEMIDE 20 MG TABLET 1 TABLET ORALLY EVERY OTHER DAY NOT-TAKING PROVENTIL 3 MLS INHALED EVERY 4 HOURS NEEDED NOT-TAKING SYMBICORT 160-4.5 MCG/ACT AEROSOL 2 PUFFS INHALATION TWICE A DAY NOT-TAKING NICORETTE 4 MG GUM 1 PIECE NEEDED MOUTH/THROAT 24 TIME(S) A DAY NOT-TAKING PSYLLIUM 28 % PACKET 1 PACKET WITH 8 OUNCES OF LIQUID NEEDED ORALLY BID NOT-TAKING FERROUS SULFATE 325 (65 FE) MG TABLET TAKE 1 TABLET BY MOUTH ONCE DAILY ORAL NOT-TAKING TRAZODONE HCL 50 MG TABLET TAKE 1 TABLET BY MOUTH AT BEDTIME IF NEEDED FOR SLEEP ORAL NOT-TAKING FAMOTIDINE 20 MG TABLET TAKE 1 TABLET BY MOUTH TWICE A DAY ORAL NOT-TAKING OCEAN NASAL SPRAY 0.65 % SOLUTION 2 SPRAYS IN EACH NOSTRIL NEEDED NASALLY EVERY 2 HRS NOT-TAKING TRAMADOL HCL 50 MG TABLET (SCHEDULE IV DRUG) TAKE 1 TABLET BY MOUTH TWICE A DAY WITH TYLENOL 325 MG IF NEEDED ... (REFER TO PRESCRIPTION NOTES). ORAL NOT-TAKING MECLIZINE HCL 25 MG TABLET TAKE 1 TABLET BY MOUTH THREE TIMES A DAY FOR DIZZINESS CRUSH TABLET.GIVE WITH APPLESAUCE/WATER ORAL NOT-TAKING GABAPENTIN 300 MG CAPSULE TAKE 3 CAPSULES IN THE MORNING,2 CAPSULES IN THE AFTERNOON,AND 3 CAPSULES AT BEDTIME ORAL MEDICATION LIST REVIEWED AND RECONCILED WITH THE PATIENT PAST MEDICAL HISTORY HTN, AFIB ON ELIQUIS GOUT OPEN ABDOMINAL WOUND CVA COPD ON HOME O2 ANXIETY SEPTIC SHOCK WITH ACUTE KIDNEY FAILURE ILEOSTOMY HAS HAD RHABDO , HAS FOOT DROP RIGHT SHOULDER TORN TENDON RESTLESS LEGS ALLERGIES N.K.D.A. SOCIAL HISTORY GENERAL: TOBACCO USE ARE YOU A:FORMER SMOKER HAS BEEN USING THE PATCH FOR A LITTLE OVER MONTH. HOW LONG HAS IT BEEN SINCE YOU LAST SMOKED?3-6 MONTHS LATEX QUESTIONNAIRE LATEX ALLERGY : HAVE YOU EVER DEVELOPED ANY TYPE OF REACTION AFTER HANDLING LATEX PRODUCTS SUCH RUBBER GLOVES, CONDOMS, DIAPHRAGMS, BALLOONS, SOCKS, OR UNDERWEAR?NO LATEX ALLERGY : HAVE YOU EVER DEVELOPED ANY TYPE OF REACTION DURING OR AFTER DENTAL APPOINTMENT, VAGINAL/RECTAL EXAMINATION, SURGICAL PROCEDURE, OR ANY OTHER EXPOSURE?NO LATEX RISK : HAVE YOU EVER HAD ANY DIFFICULTY BREATHING OR HIVES AFTER EATING OR HANDLING ANY FRUITS, OR VEGETABLES; SUCH KIWI, BANANAS, STONE FRUITS, OR CHESTNUTSNO LATEX RISK : DO YOU HAVE A PREVIOUS PERSONAL HISTORY OF MORE THAN NINE SURGERIES, SPINA BIFIDA, OR REPEATED CATHERIZATIONS? NO LATEX RISK : ARE YOU FREQUENTLY EXPOSED TO LATEX PRODUCTS IN YOUR OCCUPATION?NO DATE ASKED : 06/26/2020 ALCOHOL USE: NO. ALCOHOL SCREENING DID YOU HAVE A DRINK CONTAINING ALCOHOL IN THE PAST YEAR?YES POINTS0 INTERPRETATIONNEGATIVE RECREATIONAL DRUG USE DRUG USE?NO CAFFEINE CAFFEINE USE?YES HOW OFTEN AND HOW MUCH? COFFEE NOT QUITE DAILY [employer] [id number] WIT[employer] LANGUAGE LANGUAGES SPOKEN:AMHARIC LEARNING BARRIERS / SPECIAL NEEDS CHANGE FROM LAST VISIT?YES BARRIERS TO LEARNING?NO HEARING IMPAIRED?NO VISION IMPAIRED?YES :CORRECTIVE LENSES COGNITIVELY IMPAIRED?NO READINESS TO LEARN?YES LEARNING PREFERENCES?NO LEARNING CAPABILITIES PRESENT?YES EMOTIONAL BARRIERS?NO SPECIAL DEVICES?YES :WHEELCHAIR SECURITY GUARD NEEDED?NO OCCUPATION: DISABLED. DIET: NO ADDED SALT. EXERCISE: NO REGULAR EXERCISE, W/C BOUND. TODAY'S VISIT NOTES 09/27/2019, PATIENT DESCRIBES PAIN : HAVE IT ALL THE TIME, THROBBING, SHOOTING, FROM 0-10, WHAT LEVEL IS YOUR PAIN TODAY? 5. QUIT SMOKING AND ALCOHOL DUE TO HEALTH. REVIEW OF SYSTEMS CONSTITUTIONAL: ANY RECENT FEVER NO . CHILLS NO . WEIGHT CHANGE OF UNKNOWN REASONS NO . GASTROENTEROLOGY: NEW UNEXPLAINABLE CHANGES IN BOWEL CONTROL NO . CONSTIPATION NO . GENITOURINARY: ANY NEW CHANGE IN BLADDER CONTROL? NO . NEUROLOGY: NEW ONSET DIZZINESS OR NEUROLOGICAL CHANGES NOT MENTIONED NO . NEW NUMBNESS OR PAIN PATTERNS NOT MENTIONED AND PERTINENT TO TODAY'S VISIT NO . CARDIOLOGY: NEW CHEST PRESSURE NO . NEW CHEST PAIN NO . RESPIRATORY: UNEXPLAINABLE COUGH NO . NEW SHORTNESS OF BREATH NO . VITAL SIGNS WT 170.2 LBS, HT 68 IN, BMI 25.88 INDEX, BP 123/61 MM HG, HR 81 /MIN, RR 18 /MIN, TEMP 97.9 F, OXYGEN SAT % 98, SAFE IN ENV? (Y/N) YES, REVIEWED BY: [facility]. BETITO NAVARRETE. EXAMINATION GENERAL EXAMINATION: GENERALAWAKE,ALERT ,PLEASANT . PSYCHAFFECT NORMAL . LUNGS:LUNG REYES ARE CLEAR TO AUSCULTATION BILATERALLY. GOOD MOVEMENT OF AIR . HEART:S1, S2 IN A REGULAR RATE AND RHYTHM. NO SIGNIFICANT MURMURS, RUBS OR GALLOPS NOTED . ASSESSMENTS NEUROPATHY - G62.9 (PRIMARY) CHRONIC PRESCRIPTION OPIATE USE - Z79.891 TREATMENT NEUROPATHY CONTINUE GABAPENTIN CAPSULE, 300 MG, 1 CAPSULE, ORALLY, BID REFILL BUTRANS PATCH WEEKLY, 20 MCG/HR, 1 PATCH TO SKIN, TRANSDERMAL, 1 PATCH [id number], 30 DAYS, 4, REFILLS 5 CONTINUE BACLOFEN TABLET, 20 MG, 1 TABLET WITH FOOD OR MILK, ORALLY, EVERY 8 HRS REFILL NORCO TABLET, 10-325 MG, 1 TABLET NEEDED, ORALLY, EVERY 8 HRS MDD3, 30 DAYS, 90, REFILLS 0 NOTES: ISTOP REGISTRY REVIEWED AND DEMONSTRATES COMPLLIANCE. BRINGS IN MEDICATIONS WHICH IS APPROPRIATE FOR WHAT WAS DISPENSED. RECENT URINE TOXICOLOGY REVIEWED. NO UNAUTHORIZED MEDICATIONS. NO ILLICIT SUBSTANCES AND PRESCRIBED MEDICATIONS WERE PRESENT. PROCEDURE CODES FA211 ESTABILISHED PATIENT [facility] CHARGE DISPOSITION & COMMUNICATION FOLLOW UP 3 MONTHS (REASON: F/U APT/URINE TOX) ELECTRONICALLY SIGNED BY TYLER PAINTING ON 06/27/2020 AT 03:41 PM EST DISCLAIMER : THIS IS A VISIT SUMMARY EXTRACTED FROM THE [employer] CHART. IT IS NOT A COPY OF THE [employer] PROGRESS NOTE. MARINE
== END ==
LOC: M PAIN 11:15
PROVIDERS: ATTEND Nurse Practitioner Family
DX: G62.9 Polyneuropathy, unspecified (principal); I10 Essential (primary) hypertension; I48.91 Unspecified atrial fibrillation; J44.9 Chronic obstructive pulmonary disease, unspecified; F41.9 Anxiety disorder, unspecified; G25.81 Restless legs syndrome; Z87.891 Personal history of nicotine dependence; Z93.2 Ileostomy status; Z79.891 Long term (current) use of opiate analgesic; Z79.01 Long term (current) use of anticoagulants; Z79.899 Other long term (current) drug therapy; Z99.81 Dependence on supplemental oxygen

== ENCOUNTER → 2020-09-22 | Outpatient (CLI) | payer MEDICARE, OTHER ==
--- NOTE | 2020-09-25 07:09 | ECWPNPC ---
PATIENT NAME: CHIRAG PIERRE : 1950 GENDER: MALE VISIT DATE: 09/22/2020 DISCHARGE DATE: 09/22/20 1051 VISIT LOCKED DATE TIME: PHYSICIAN: TAVO PATEL RESOURCE: TAVO PATEL REASON FOR APPOINTMENT 1. F/U APT/URINE TOX HISTORY OF PRESENT ILLNESS GENERAL: HERE FOR F/U AND MEDICATION MANAGEMENT FOR CHRONIC LOW BACK PAIN.OVER THE PAST MONTH HE HAS HAD SEVERE INCREASE IN LOW BACK PAIN THAT RADIATES INTO RIGHT INNER THIGH.HE WOULD LIKE TO HAVE INJECTIONS.RECENT HOSPITALIZATION FOR PNEUMONIA.HAS MULTIPLE COMORBIDITIES.ACCOMPANIED IN EXAM ROOM WITH HIS DAUGHTER WHO IS HIS PRIMARY TUBE TELLER.HE IS MAINLY WHEELCHAIR DEPENDENT.REVIEWED MRI L/S SPINE AND DISCUSSED TREATMENT OPTIONS. -. FALL RISK SCREENING: SCREENING : NO FALLS REPORTED IN THE LAST YEAR. PAIN SCREENING: PATIENT HAS A COMPLAINT OF ACUTE OR CHRONIC PAIN :YES LOCATION OF PAIN:LEG(S) INTENSITY OF PAIN (SCALE OF 1 TO 10):7 WHAT DOES YOUR PAIN FEEL LIKE:ACHING, SHOOTING DURATION:CONTINOUS, CONSTANT, ALL DAY PAIN IS INCREASED BY:ACTIVITIES PAIN IS DECREASED BY:USE OF PAIN MEDICATIONS NURSING NOTE: -. PAIN CENTER INTAKE QUESTIONS: DO YOU HAVE A HISTORY OF MRSA? :NO DO YOU TAKE A BLOOD THINNERS? :YES ELIQUIS DO YOU HAVE ANY BLEEDING DISORDERS? :NO ANY NEW NUMBNESS OR WEAKNESS IN YOUR LEGS OR ARMS? :NO ANY PACEMAKER,DEFIBRILLATOR, OR DORSAL COLUMN STIMULATOR? :NO DO YOU HAVE ANY RASHES OR OPEN SORES? :NO ARE YOU ALLERGIC TO IV DYE? :NO ARE YOU DIABETIC? :NO ANY NEW PROBLEMS WITH YOUR MEDICATIONS? :NO HAVE YOU RECEIVED A VACCINE IN THE PAST 30 DAYS? :YES 1ST COVID 08/14/2020 DO YOU PLAN TO RECEIVE A VACCINE IN THE NEXT 21 DAYS? :YES IF SO WHAT VACCINE AND WHEN? 2ND COVID 09/22/2020 DO YOU NEED ANY PRESCRIPTION? :YES DO YOU TAKE ANY IMMUNOSUPPRESSIVE MEDICATIONS? :NO IS THERE A CHANCE YOU COULD BE ? :NO ARE YOU BREAST FEEDING? :NO CURRENT MEDICATIONS TAKING LOMOTIL 2.5-0.025 MG TABLET 1 TABLET NEEDED ORALLY FOUR TIMES A DAY TAKING LOPERAMIDE HCL 2 MG CAPSULE TAKE 2 CAPSULES BY MOUTH 4 TIMES DAILY ORAL TAKING ELIQUIS 5 MG TABLET 1 CAP ORAL BID TAKING MAGNESIUM OXIDE 400 (241.3 MG) MG TABLET TAKE 2 TABLET BY MOUTH ONCE DAILY ORAL FOUR TIMES DAILY TAKING PANTOPRAZOLE SODIUM 40 MG TABLET DELAYED RELEASE 1 TABLET ORAL DAILY TAKING DIPHENOXYLATE-ATROPINE 2.5-0.025 MG TABLET (SCHEDULE V DRUG) TAKE 2 TABLETS BY MOUTH FOUR TIMES A DAY MAXIMUM DAILY DOSE OF 8 ORAL TAKING FOLIC ACID 1 MG TABLET TAKE 1 TABLET BY MOUTH ONCE DAILY ORAL TAKING ONDANSETRON 4MG ORAL NEEDED TAKING CARTIA XT 180 MG CAPSULE EXTENDED RELEASE 24 HOUR 1 CAPSULE ORALLY ONCE A DAY TAKING ROPINIROLE HCL 1 MG TABLET 1 TABLET 1 TO 3 HOURS BEFORE BEDTIME ORALLY ONCE A DAY TAKING NICOTINE 21 MG/24HR PATCH 24 HOUR APPLY ONE PATCH TO SKIN DAILY TRANSDERMAL TAKING FUROSEMIDE 20 MG TABLET 1 TABLET ORALLY EVERY OTHER DAY TAKING BACLOFEN 20 MG TABLET 1 TABLET WITH FOOD OR MILK ORALLY EVERY 8 HRS TAKING BUTRANS 20 MCG/HR PATCH WEEKLY 1 PATCH TO SKIN TRANSDERMAL 1 PATCH [id number] TAKING GABAPENTIN 300 MG CAPSULE 1 CAPSULE ORALLY BID TAKING NORCO 10-325 MG TABLET 1 TABLET NEEDED ORALLY EVERY 8 HRS MDD3 NOT-TAKING HYDROCODONE-ACETAMINOPHEN 10-325 MG TABLET 1 TABLET NEEDED ORALLY EVERY 8 HRS MDD: 3 NOT-TAKING PROVENTIL 3 MLS INHALED EVERY 4 HOURS NEEDED NOT-TAKING SYMBICORT 160-4.5 MCG/ACT AEROSOL 2 PUFFS INHALATION TWICE A DAY NOT-TAKING NICORETTE 4 MG GUM 1 PIECE NEEDED MOUTH/THROAT 24 TIME(S) A DAY NOT-TAKING PSYLLIUM 28 % PACKET 1 PACKET WITH 8 OUNCES OF LIQUID NEEDED ORALLY BID NOT-TAKING FERROUS SULFATE 325 (65 FE) MG TABLET TAKE 1 TABLET BY MOUTH ONCE DAILY ORAL NOT-TAKING TRAZODONE HCL 50 MG TABLET TAKE 1 TABLET BY MOUTH AT BEDTIME IF NEEDED FOR SLEEP ORAL NOT-TAKING FAMOTIDINE 20 MG TABLET TAKE 1 TABLET BY MOUTH TWICE A DAY ORAL NOT-TAKING OCEAN NASAL SPRAY 0.65 % SOLUTION 2 SPRAYS IN EACH NOSTRIL NEEDED NASALLY EVERY 2 HRS NOT-TAKING TRAMADOL HCL 50 MG TABLET (SCHEDULE IV DRUG) TAKE 1 TABLET BY MOUTH TWICE A DAY WITH TYLENOL 325 MG IF NEEDED ... (REFER TO PRESCRIPTION NOTES). ORAL NOT-TAKING MECLIZINE HCL 25 MG TABLET TAKE 1 TABLET BY MOUTH THREE TIMES A DAY FOR DIZZINESS CRUSH TABLET.GIVE WITH APPLESAUCE/WATER ORAL NOT-TAKING GABAPENTIN 300 MG CAPSULE TAKE 3 CAPSULES IN THE MORNING,2 CAPSULES IN THE AFTERNOON,AND 3 CAPSULES AT BEDTIME ORAL MEDICATION LIST REVIEWED AND RECONCILED WITH THE PATIENT PAST MEDICAL HISTORY HTN, AFIB ON ELIQUIS GOUT OPEN ABDOMINAL WOUND CVA COPD ON HOME O2 ANXIETY SEPTIC SHOCK WITH ACUTE KIDNEY FAILURE ILEOSTOMY HAS HAD RHABDO , HAS FOOT DROP RIGHT SHOULDER TORN TENDON RESTLESS LEGS ALLERGIES N.K.D.A. SURGICAL HISTORY ILEOCECAL RESECTION WITH PROLONGED STAY DUE TO WOUND DEHISCENCE 2017 BACK SURGERY X 3 BOWEL ENTERCTOMY - TOTAL OF 3 ABDOMINAL SURGERIES 2018 COLONOSCOPY WITH BIOPSY 06/2018 EGD & COLONOSCOPY 08/2018 SOCIAL HISTORY GENERAL: TOBACCO USE ARE YOU A:FORMER SMOKER HAS BEEN USING THE PATCH FOR A LITTLE OVER MONTH. HOW LONG HAS IT BEEN SINCE YOU LAST SMOKED?3-6 MONTHS LATEX QUESTIONNAIRE LATEX ALLERGY : HAVE YOU EVER DEVELOPED ANY TYPE OF REACTION AFTER HANDLING LATEX PRODUCTS SUCH RUBBER GLOVES, CONDOMS, DIAPHRAGMS, BALLOONS, SOCKS, OR UNDERWEAR?NO LATEX ALLERGY : HAVE YOU EVER DEVELOPED ANY TYPE OF REACTION DURING OR AFTER DENTAL APPOINTMENT, VAGINAL/RECTAL EXAMINATION, SURGICAL PROCEDURE, OR ANY OTHER EXPOSURE?NO LATEX RISK : HAVE YOU EVER HAD ANY DIFFICULTY BREATHING OR HIVES AFTER EATING OR HANDLING ANY FRUITS, OR VEGETABLES; SUCH KIWI, BANANAS, STONE FRUITS, OR CHESTNUTSNO LATEX RISK : DO YOU HAVE A PREVIOUS PERSONAL HISTORY OF MORE THAN NINE SURGERIES, SPINA BIFIDA, OR REPEATED CATHERIZATIONS? NO LATEX RISK : ARE YOU FREQUENTLY EXPOSED TO LATEX PRODUCTS IN YOUR OCCUPATION?NO DATE ASKED : 09/22/2020 ALCOHOL USE: NO. ALCOHOL SCREENING DID YOU HAVE A DRINK CONTAINING ALCOHOL IN THE PAST YEAR?YES POINTS0 INTERPRETATIONNEGATIVE RECREATIONAL DRUG USE DRUG USE?NO CAFFEINE CAFFEINE USE?YES HOW OFTEN AND HOW MUCH? 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 DIET: NO ADDED SALT. EXERCISE: NO REGULAR EXERCISE, W/C BOUND. TODAY'S VISIT NOTES 09/27/2019, PATIENT DESCRIBES PAIN : HAVE IT ALL THE TIME, THROBBING, SHOOTING, FROM 0-10, WHAT LEVEL IS YOUR PAIN TODAY? 5. QUIT SMOKING AND ALCOHOL DUE TO HEALTH. HOSPITALIZATION/MAJOR DIAGNOSTIC PROCEDURE SEE ABOVE 78 DAYS IN [facility] LAST 2017 BOWEL OBSTRUCTION 03/2019 LUPUS 2020 REVIEW OF SYSTEMS CONSTITUTIONAL: ANY RECENT FEVER NO . CHILLS NO . WEIGHT CHANGE OF UNKNOWN REASONS NO . GASTROENTEROLOGY: NEW UNEXPLAINABLE CHANGES IN BOWEL CONTROL NO . CONSTIPATION NO . GENITOURINARY: ANY NEW CHANGE IN BLADDER CONTROL? NO . NEUROLOGY: NEW ONSET DIZZINESS OR NEUROLOGICAL CHANGES NOT MENTIONED NO . NEW NUMBNESS OR PAIN PATTERNS NOT MENTIONED AND PERTINENT TO TODAY'S VISIT NO . CARDIOLOGY: NEW CHEST PRESSURE NO . PATIENT DENIES NO . RESPIRATORY: UNEXPLAINABLE COUGH NO . NEW SHORTNESS OF BREATH NO . VITAL SIGNS WT 169.0 LBS, HT 68 IN, BMI 25.69 INDEX, BP 128/64 MM HG, HR 76 /MIN, RR 18 /MIN, TEMP 97.5 F, OXYGEN SAT % 93%, SAFE IN ENV? (Y/N) YES, NA INITIALS AW [id number].JANELLE BRUCE. EXAMINATION GENERAL EXAMINATION: GENERALAWAKE,ALERT ,PLEAASANT . PSYCHAFFECT NORMAL . LUNGS:LUNG REYES ARE CLEAR TO AUSCULTATION BILATERALLY. GOOD MOVEMENT OF AIR . HEART:S1, S2 IN A REGULAR RATE AND RHYTHM. NO SIGNIFICANT MURMURS, RUBS OR GALLOPS NOTED . LUMBAR:PALPATION:TENDER OVER BILAT. L4/5-L5/S1 LUMBAR FACETS WITH FACET LOADING.. ASSESSMENTS CHRONIC PRESCRIPTION OPIATE USE - Z79.891 (PRIMARY) OTHER SPONDYLOSIS, LUMBOSACRAL REGION - M47.897 TREATMENT CHRONIC PRESCRIPTION OPIATE USE LAB: URINE TEST GROUP DEANDRE LIUS 09/22/2020 10:35:26 AM > LAST DOSE: HYDROCODONE 09/22/2020 4AM , GABAPENTIN 09/22/2020 @4AM, BUTRAN 09/16/2020 @4AM SALINE LOCK (ORDERED FOR 09/29/2020) MEDICATION: VALIUM TAB 5MG ORALLY (DIAZEPAM) (ORDERED FOR 09/29/2020) MEDICATION: OXYCODONE HCL TAB 5MG ORALLY (ORDERED FOR 09/29/2020) NOTES: BILATERAL THERAPEUTIC LUMBAR FACET BLOCK L4-5,L5-S1/MED HOLD/MED CLEARANCE DR Gray,[facility],STOP ELOQUIS TO DR SAMUELRHONDA OG ISTOP REGISTRY REVIEWED AND DEMONSTRATES COMPLLIANCE. BRINGS IN MEDICATIONS WHICH IS APPROPRIATE FOR WHAT WAS DISPENSED. RECENT URINE TOXICOLOGY REVIEWED. NO UNAUTHORIZED MEDICATIONS. NO ILLICIT SUBSTANCES AND PRESCRIBED MEDICATIONS WERE PRESENT. , PRINTED AND REVIEWED PRE PROCEDURE TEACHING, PATIENT VERBALIZED UNDERSTANDING ANGEL BRUCE . REFERRAL TO:[facility] REASON:MULTIPLE COMORBIDITIES, NEED CLEARANCE FOR THERAPEUTIC FACET BLOCKS PROCEDURE CODES FA211 ESTABILISHED PATIENT [facility] FACILITY CHARGE DISPOSITION & COMMUNICATION FOLLOW UP POST (REASON: BILATERAL THERAPEUTIC LUMBAR FACET BLOCK L4-5,L5-S1/MED HOLD/MED CLEARANCE DR Gray,[facility],STOP ELOQUIS TO RHONDA MCKEON) ELECTRONICALLY SIGNED BY TYLER PAINTING ON 09/24/2020 AT 07:29 AM EDT DISCLAIMER : THIS IS A VISIT SUMMARY EXTRACTED FROM THE [employer] CHART. IT IS NOT A COPY OF THE [employer] PROGRESS NOTE. CATHERINED
== END ==
LOC: M PAIN 09:45
PROVIDERS: ATTEND Nurse Practitioner Family
DX: M47.897 Other spondylosis, lumbosacral region (principal); I10 Essential (primary) hypertension; I48.91 Unspecified atrial fibrillation; J44.9 Chronic obstructive pulmonary disease, unspecified; F41.9 Anxiety disorder, unspecified; G25.81 Restless legs syndrome; Z86.73 Personal history of transient ischemic attack (TIA), and cerebral infarction without residual deficits; Z99.81 Dependence on supplemental oxygen; Z79.891 Long term (current) use of opiate analgesic; Z79.01 Long term (current) use of anticoagulants; Z79.899 Other long term (current) drug therapy; Z87.891 Personal history of nicotine dependence

== ENCOUNTER → 2020-12-03 | Outpatient (CLI) | payer MEDICARE ==
--- NOTE | 2020-12-04 04:45 | ECWPNPC ---
PATIENT NAME: CHIRAG PIERRE : 1950 GENDER: MALE VISIT DATE: 12/03/2020 DISCHARGE DATE: 12/03/20941 VISIT LOCKED DATE TIME: PHYSICIAN: TAVO PATEL RESOURCE: TAVO PATEL REASON FOR APPOINTMENT 1. F/U HISTORY OF PRESENT ILLNESS DEPRESSION SCREENING: PHQ-2 (2015 EDITION) LITTLE INTEREST OR PLEASURE IN DOING THINGS?NOT AT ALL FEELING DOWN, DEPRESSED, OR HOPELESS?NOT AT ALL TOTAL SCORE0 GENERAL: HERE FOR FOLLOW-UP OF CHRONIC LOW BACK PAIN AND LOWER EXTREMITY NEUROPATHY. PATIENT IS ACCOMPANIED WITH HIS DAUGHTER WHO IS HIS VETERINARY RECEPTIONIST. THEY DECIDED TO CANCEL PROCEDURE FOR LUMBAR FACET BLOCK THAT WAS SCHEDULED DUE TO CONCERNS ABOUT RISKS ASSOCIATED WITH PROCEDURE AND HISTORY OF MULTIPLE COMORBIDITIES. OVERALL DOING WELL WITH CHRONIC PAIN MEDICATION. DENIES ADVERSE SIDE EFFECTS. BRINGS IN HIS MEDICATION WHICH IS APPROPRIATE FOR WHAT WAS DISPENSED. RECENT URINE TOXICOLOGY IS REVIEWED AND WITHIN NORMAL LIMITS. -. FALL RISK SCREENING: SCREENING : NO FALLS REPORTED IN THE LAST YEAR. PAIN SCREENING: PATIENT HAS A COMPLAINT OF ACUTE OR CHRONIC PAIN :YES LOCATION OF PAIN:LOW BACK INTENSITY OF PAIN (SCALE OF 1 TO 10):6 WHAT DOES YOUR PAIN FEEL LIKE:SORE DURATION:INTERMITTENT PAIN IS INCREASED BY:ACTIVITIES, OTHERS SITTING DOWN PAIN IS DECREASED BY:USE OF PAIN MEDICATIONS NURSING NOTE: -. PAIN CENTER INTAKE QUESTIONS: DO YOU HAVE A HISTORY OF MRSA? :NO DO YOU TAKE A BLOOD THINNERS? :YES ELIQUIS DO YOU HAVE ANY BLEEDING DISORDERS? :NO ANY NEW NUMBNESS OR WEAKNESS IN YOUR LEGS OR ARMS? :NO ANY PACEMAKER,DEFIBRILLATOR, OR DORSAL COLUMN STIMULATOR? :NO DO YOU HAVE ANY RASHES OR OPEN SORES? :NO ARE YOU ALLERGIC TO IV DYE? :NO ARE YOU DIABETIC? :NO ANY NEW PROBLEMS WITH YOUR MEDICATIONS? :NO HAVE YOU RECEIVED A VACCINE IN THE PAST 30 DAYS? :YES 1ST COVID 08/14/2020 DO YOU PLAN TO RECEIVE A VACCINE IN THE NEXT 21 DAYS? :YES IF SO WHAT VACCINE AND WHEN? 2ND COVID 09/22/2020 DO YOU NEED ANY PRESCRIPTION? :YES DO YOU TAKE ANY IMMUNOSUPPRESSIVE MEDICATIONS? :NO IS THERE A CHANCE YOU COULD BE ? :NO ARE YOU BREAST FEEDING? :NO CURRENT MEDICATIONS TAKING LOMOTIL 2.5-0.025 MG TABLET 1 TABLET NEEDED ORALLY FOUR TIMES A DAY TAKING LOPERAMIDE HCL 2 MG CAPSULE TAKE 2 CAPSULES BY MOUTH 4 TIMES DAILY ORAL NEEDED TAKING ELIQUIS 5 MG TABLET 1 CAP ORAL BID TAKING MAGNESIUM OXIDE 400 (241.3 MG) MG TABLET TAKE 2 TABLET BY MOUTH ONCE DAILY ORAL FOUR TIMES DAILY TAKING PANTOPRAZOLE SODIUM 40 MG TABLET DELAYED RELEASE 1 TABLET ORAL DAILY TAKING DIPHENOXYLATE-ATROPINE 2.5-0.025 MG TABLET (SCHEDULE V DRUG) TAKE 2 TABLETS BY MOUTH FOUR TIMES A DAY MAXIMUM DAILY DOSE OF 8 ORAL TAKING FOLIC ACID 1 MG TABLET TAKE 1 TABLET BY MOUTH ONCE DAILY ORAL TAKING ONDANSETRON 4MG ORAL NEEDED TAKING CARTIA XT 180 MG CAPSULE EXTENDED RELEASE 24 HOUR 1 CAPSULE ORALLY ONCE A DAY TAKING ROPINIROLE HCL 1 MG TABLET 1 TABLET 1 TO 3 HOURS BEFORE BEDTIME ORALLY ONCE A DAY TAKING NICOTINE 21 MG/24HR PATCH 24 HOUR APPLY ONE PATCH TO SKIN DAILY TRANSDERMAL TAKING FUROSEMIDE 20 MG TABLET 1 TABLET ORALLY EVERY OTHER DAY TAKING BUTRANS 20 MCG/HR PATCH WEEKLY 1 PATCH TO SKIN TRANSDERMAL 1 PATCH [id number] TAKING GABAPENTIN 300 MG CAPSULE 1 CAPSULE ORALLY BID TAKING NORCO 10-325 MG TABLET 1 TABLET NEEDED ORALLY EVERY 8 HRS MDD3 TAKING HYDROCODONE-ACETAMINOPHEN 10-325 MG TABLET 1 TABLET NEEDED ORALLY EVERY 8 HRS MDD: 3 TAKING BACLOFEN 20 MG TABLET 1 TABLET WITH FOOD OR MILK ORALLY EVERY 8 HRS TAKING XYZAL ALLERGY 24HR 5 MG TABLET 1 TABLET IN THE EVENING ORALLY ONCE A DAY NEEDED TAKING FLOMAX 0.4 MG CAPSULE EXTENDED RELEASE 24 HOUR 1 CAPSULE 30 MINUTES AFTER THE SAME MEAL EACH DAY ORALLY ONCE A DAY NOT-TAKING PROVENTIL 3 MLS INHALED EVERY 4 HOURS NEEDED NOT-TAKING SYMBICORT 160-4.5 MCG/ACT AEROSOL 2 PUFFS INHALATION TWICE A DAY NOT-TAKING NICORETTE 4 MG GUM 1 PIECE NEEDED MOUTH/THROAT 24 TIME(S) A DAY NOT-TAKING PSYLLIUM 28 % PACKET 1 PACKET WITH 8 OUNCES OF LIQUID NEEDED ORALLY BID NOT-TAKING FERROUS SULFATE 325 (65 FE) MG TABLET TAKE 1 TABLET BY MOUTH ONCE DAILY ORAL NOT-TAKING TRAZODONE HCL 50 MG TABLET TAKE 1 TABLET BY MOUTH AT BEDTIME IF NEEDED FOR SLEEP ORAL NOT-TAKING FAMOTIDINE 20 MG TABLET TAKE 1 TABLET BY MOUTH TWICE A DAY ORAL NOT-TAKING OCEAN NASAL SPRAY 0.65 % SOLUTION 2 SPRAYS IN EACH NOSTRIL NEEDED NASALLY EVERY 2 HRS NOT-TAKING TRAMADOL HCL 50 MG TABLET (SCHEDULE IV DRUG) TAKE 1 TABLET BY MOUTH TWICE A DAY WITH TYLENOL 325 MG IF NEEDED ... (REFER TO PRESCRIPTION NOTES). ORAL NOT-TAKING MECLIZINE HCL 25 MG TABLET TAKE 1 TABLET BY MOUTH THREE TIMES A DAY FOR DIZZINESS CRUSH TABLET.GIVE WITH APPLESAUCE/WATER ORAL NOT-TAKING GABAPENTIN 300 MG CAPSULE TAKE 3 CAPSULES IN THE MORNING,2 CAPSULES IN THE AFTERNOON,AND 3 CAPSULES AT BEDTIME ORAL MEDICATION LIST REVIEWED AND RECONCILED WITH THE PATIENT PAST MEDICAL HISTORY HTN, AFIB ON ELIQUIS GOUT OPEN ABDOMINAL WOUND CVA COPD ON HOME O2 ANXIETY SEPTIC SHOCK WITH ACUTE KIDNEY FAILURE ILEOSTOMY HAS HAD RHABDO , HAS FOOT DROP RIGHT SHOULDER TORN TENDON RESTLESS LEGS ALLERGIES PROMETHAZINE HCL: RESTLESS LEG - ALLERGY SURGICAL HISTORY ILEOCECAL RESECTION WITH PROLONGED STAY DUE TO WOUND DEHISCENCE 2017 BACK SURGERY X 3 BOWEL ENTERCTOMY - TOTAL OF 3 ABDOMINAL SURGERIES 2018 COLONOSCOPY WITH BIOPSY 06/2018 EGD & COLONOSCOPY 08/2018 SOCIAL HISTORY GENERAL: TOBACCO USE ARE YOU A:FORMER SMOKER HAS BEEN USING THE PATCH FOR A LITTLE OVER MONTH. HOW LONG HAS IT BEEN SINCE YOU LAST SMOKED?3-6 MONTHS LATEX QUESTIONNAIRE LATEX ALLERGY : HAVE YOU EVER DEVELOPED ANY TYPE OF REACTION AFTER HANDLING LATEX PRODUCTS SUCH RUBBER GLOVES, CONDOMS, DIAPHRAGMS, BALLOONS, SOCKS, OR UNDERWEAR?NO LATEX ALLERGY : HAVE YOU EVER DEVELOPED ANY TYPE OF REACTION DURING OR AFTER DENTAL APPOINTMENT, VAGINAL/RECTAL EXAMINATION, SURGICAL PROCEDURE, OR ANY OTHER EXPOSURE?NO LATEX RISK : HAVE YOU EVER HAD ANY DIFFICULTY BREATHING OR HIVES AFTER EATING OR HANDLING ANY FRUITS, OR VEGETABLES; SUCH KIWI, BANANAS, STONE FRUITS, OR CHESTNUTSNO LATEX RISK : DO YOU HAVE A PREVIOUS PERSONAL HISTORY OF MORE THAN NINE SURGERIES, SPINA BIFIDA, OR REPEATED CATHERIZATIONS? NO LATEX RISK : ARE YOU FREQUENTLY EXPOSED TO LATEX PRODUCTS IN YOUR OCCUPATION?NO DATE ASKED : 12/03/2020 ALCOHOL USE: NO. ALCOHOL SCREENING DID YOU HAVE A DRINK CONTAINING ALCOHOL IN THE PAST YEAR?YES POINTS0 INTERPRETATIONNEGATIVE RECREATIONAL DRUG USE DRUG USE?NO CAFFEINE CAFFEINE USE?YES HOW OFTEN AND HOW MUCH? COFFEE NOT QUITE DAILY CONGREGATION [id number] W[employer] L[employer] LANGUAGES SPOKEN:UPPER SORBIAN LEARNING BARRIERS / SPECIAL NEEDS CHANGE FROM LAST VISIT?YES BARRIERS TO LEARNING?NO HEARING IMPAIRED?YES VISION IMPAIRED?YES :CORRECTIVE LENSES READER COGNITIVELY IMPAIRED?NO READINESS TO LEARN?YES LEARNING PREFERENCES?NO LEARNING CAPABILITIES PRESENT?YES EMOTIONAL BARRIERS?YES COMMENTS COPD , ANXIETY SPECIAL DEVICES?YES :WHEELCHAIR CLERICAL AND ADMINISTRATIVE WORKERS NEEDED?NO DAUGHTER ACCOMPANYING HIM OCCUPATION: DISABLED. DIET: NO ADDED SALT. EXERCISE: NO REGULAR EXERCISE, W/C BOUND. TODAY'S VISIT NOTES 09/27/2019, PATIENT DESCRIBES PAIN : HAVE IT ALL THE TIME, THROBBING, SHOOTING, FROM 0-10, WHAT LEVEL IS YOUR PAIN TODAY? 5. QUIT SMOKING AND ALCOHOL DUE TO HEALTH. HOSPITALIZATION/MAJOR DIAGNOSTIC PROCEDURE SEE ABOVE 78 DAYS IN [facility] LAST MADI 2018 BOWEL OBSTRUCTION 03/2019 LUPUS 2020 REVIEW OF SYSTEMS CONSTITUTIONAL: ANY RECENT FEVER NO . CHILLS NO . WEIGHT CHANGE OF UNKNOWN REASONS NO . GASTROENTEROLOGY: NEW UNEXPLAINABLE CHANGES IN BOWEL CONTROL NO . CONSTIPATION NO . GENITOURINARY: ANY NEW CHANGE IN BLADDER CONTROL? NO . NEUROLOGY: NEW ONSET DIZZINESS OR NEUROLOGICAL CHANGES NOT MENTIONED NO . NEW NUMBNESS OR PAIN PATTERNS NOT MENTIONED AND PERTINENT TO TODAY'S VISIT NO . CARDIOLOGY: NEW CHEST PRESSURE NO . PATIENT DENIES NO . RESPIRATORY: UNEXPLAINABLE COUGH NO . NEW SHORTNESS OF BREATH NO . VITAL SIGNS WT 176.8 LBS, HT 68 IN, BMI 26.88 INDEX, BP 131/66 MM HG, HR 91 /MIN, RR 18 /MIN, TEMP 97.7 F, OXYGEN SAT % 97%, SAFE IN ENV? (Y/N) YES, NA INITIALS RAQUELT.JANELLE BRUCE. EXAMINATION GENERAL EXAMINATION: GENERALAWAKE,ALERT ,PLEASANT . PSYCHAFFECT NORMAL . LUNGS:LUNG REYES ARE CLEAR TO AUSCULTATION BILATERALLY. GOOD MOVEMENT OF AIR . HEART:S1, S2 IN A REGULAR RATE AND RHYTHM. NO SIGNIFICANT MURMURS, RUBS OR GALLOPS NOTED . ASSESSMENTS NEUROPATHY - G62.9 (PRIMARY) OTHER SPONDYLOSIS, LUMBOSACRAL REGION - M47.897 TREATMENT NEUROPATHY REFILL BUTRANS PATCH WEEKLY, 20 MCG/HR, 1 PATCH TO SKIN, TRANSDERMAL, 1 PATCH [id number], 30 DAYS, 4, REFILLS 5 CONTINUE GABAPENTIN CAPSULE, 300 MG, 1 CAPSULE, ORALLY, BID REFILL NORCO TABLET, 10-325 MG, 1 TABLET NEEDED, ORALLY, EVERY 8 HRS MDD3, 30 DAYS, 90, REFILLS 0 NOTES: ISTOP REGISTRY REVIEWED AND DEMONSTRATES COMPLLIANCE.BRINGS IN MEDICATIONS WHICH IS APPROPRIATE FOR WHAT WAS DISPENSED. RECENT URINE TOXICOLOGY REVIEWED. NO UNAUTHORIZED MEDICATIONS. NO ILLICIT SUBSTANCES AND PRESCRIBED MEDICATIONS WERE PRESENT. PROCEDURE CODES FA211 ESTABILISHED PATIENT [facility] FACILITY CHARGE DISPOSITION & COMMUNICATION FOLLOW UP 3 MONTHS (REASON: MED MGMNT/LBP/NEUROPATHY) ELECTRONICALLY SIGNED BY TYLER PAINTING ON 12/03/2020 AT 03:35 PM EDT DISCLAIMER : THIS IS A VISIT SUMMARY EXTRACTED FROM THE [employer] [facility] [employer] [facility] CHART. IT IS NOT A COPY OF THE [employer] PROGRESS NOTE. CATHERINED
== END ==
LOC: M PAIN 09:30
PROVIDERS: ATTEND Nurse Practitioner Family
DX: G62.9 Polyneuropathy, unspecified (principal); M47.897 Other spondylosis, lumbosacral region; I10 Essential (primary) hypertension; I48.91 Unspecified atrial fibrillation; J44.9 Chronic obstructive pulmonary disease, unspecified; F41.9 Anxiety disorder, unspecified; G25.81 Restless legs syndrome; Z86.73 Personal history of transient ischemic attack (TIA), and cerebral infarction without residual deficits; Z87.891 Personal history of nicotine dependence; Z79.01 Long term (current) use of anticoagulants; Z79.891 Long term (current) use of opiate analgesic; Z79.899 Other long term (current) drug therapy; Z88.8 Allergy status to other drugs, medicaments and biological substances

== ENCOUNTER → 2021-03-05 | Outpatient (CLI) | payer MEDICARE | LOC: M PAIN 10:00 | PROVIDERS: ATTEND Anesthesiology | DX: G62.9 Polyneuropathy, unspecified (principal); M47.897 Other spondylosis, lumbosacral region; I10 Essential (primary) hypertension; I48.91 Unspecified atrial fibrillation; M10.9 Gout, unspecified; J44.9 Chronic obstructive pulmonary disease, unspecified; F41.9 Anxiety disorder, unspecified; G25.81 Restless legs syndrome; Z79.891 Long term (current) use of opiate analgesic; Z87.891 Personal history of nicotine dependence; Z79.899 Other long term (current) drug therapy; Z88.8 Allergy status to other drugs, medicaments and biological substances ==

== ENCOUNTER 2021-04-11 18:24 | Inpatient (IN) | payer MEDICARE ==
[~2021-04-11] VITALS: Ht 170.2 cm; Wt 75.4 kg
[2021-04-11] MEDS ORDERED: BUPR300T92 PO (20:49)
[2021-04-11] MEDS ORDERED: GABA-282 PO (20:49)
[2021-04-11] MEDS ORDERED: TAMS1CAP17 PO (20:49)
[2021-04-11] MEDS ORDERED: OXYB15TA14 (20:49)
[2021-04-11] MEDS ORDERED: ROPI1TAB3 PO (20:49)
[2021-04-11] MEDS ORDERED: BACL1TAB9 PO (20:49)
[2021-04-11] MEDS ORDERED: SPIR-10 PO (20:49)
[2021-04-11] MEDS ORDERED: SODI1TAB6 PO (20:49)
[2021-04-11] MEDS ORDERED: LOPE1CAP5 PO (20:49)
[2021-04-11] MEDS ORDERED: DIPH2.5T14 PO (20:49)
[2021-04-11] MEDS ORDERED: DILT180C70 PO (20:49)
[2021-04-11] MEDS ORDERED: ONDA-83 PO (20:49)
[2021-04-11] MEDS: COMBIVENT RESPIMAT 100-20MCG INHALER 4GM INH SCH ×3 (21:05→21:45)
[2021-04-11] MEDS ORDERED: FURO20TA2 PO (21:49)
[2021-04-11] MEDS ORDERED: ELIQ5TAB PO (21:49)
[2021-04-11] MEDS ORDERED: MAGN400T2 PO (21:49)
[2021-04-11] MEDS ORDERED: LEVOTAB10 PO (21:49)
[2021-04-11] MEDS ORDERED: BUPR20DI3 TOP (21:49)
[2021-04-11] MEDS ORDERED: HYDR-3719 PO (21:49)
[2021-04-11] MEDS ORDERED: HOME MED LIST COMPLETE! XX SCH (21:50)
--- NOTE | 2021-04-11 22:38 | REPVR ---
PROCEDURE INFORMATION: Exam: CT Head Without Contrast Exam date and time: 04/11/2021 9:14 PM Age: 70 years old Clinical indication: Injury or trauma; Fall; Blunt trauma (contusions or hematomas); Consciousness not specified TECHNIQUE: Imaging protocol: Computed tomography of the head without contrast. Radiation optimization: All CT scans at this facility use at least one of these dose optimization techniques: automated exposure control; mA and/or kV adjustment per patient size (includes targeted exams where dose is matched to clinical indication); or iterative reconstruction. COMPARISON: No relevant prior studies available. FINDINGS: Brain: Mild nonspecific hypodensities of the periventricular and deep subcortical white matter, most likely secondary to chronic small vessel ischemic change. No intracranial hemorrhage or extra-axial fluid collection. No evidence of mass effect or midline shift. Cao-white matter differentiation is normal. Cerebral ventricles: Mild prominence of the ventricles and sulci, most likely attributed to parenchymal volume loss. Paranasal sinuses: Small air-fluid level in the left maxillary sinus. Mastoid air cells: Unremarkable. Bones/joints: No acute osseus lesion or fracture. Soft tissues: Unremarkable. IMPRESSION: 1. No acute intracranial pathology. 2. Small air-fluid level in the left maxillary sinus. 3. Other chronic findings, as above. Electronically signed by: Ede Green On 04/11/2021 22:36:58 PM
[2021-04-11 22:39] LABS: INR 1.13; PROTHROMBIN TIME 14.9 SECONDS (12.7-14.5)
--- NOTE | 2021-04-11 22:39 | REPVR ---
PROCEDURE INFORMATION: Exam: CT Cervical Spine Without Contrast Exam date and time: 04/11/2021 9:14 PM Age: 70 years old Clinical indication: Injury or trauma; Fall; Blunt trauma TECHNIQUE: Imaging protocol: Computed tomography images of the cervical spine without contrast. Radiation optimization: All CT scans at this facility use at least one of these dose optimization techniques: automated exposure control; mA and/or kV adjustment per patient size (includes targeted exams where dose is matched to clinical indication); or iterative reconstruction. COMPARISON: XA Cookie Swallow Mod.Ba Swallow 08/10/2017 2:44 PM FINDINGS: Bones/joints: 0.3 cm degenerative retrolisthesis of C3 on C4. 0.3 cm degenerative anterior subluxation of C4 on C5. 0.5 cm degenerative anterior subluxation of C7 on T1. Vertebral body heights are maintained. No locked or perched facets. Multilevel facet arthropathy. No acute cervical spine fracture. The dens is intact. Atlanto-axial intervals are normal. Discs/Spinal canal/Neural foramina: Multilevel degenerative changes with intervertebral disc height loss and osteophyte formation, with multilevel areas of mild to moderate canal stenosis. Lungs: Lung apices are clear. Soft tissues: Unremarkable. IMPRESSION: 1. No acute cervical spine fracture. 2. Chronic findings, as above. Electronically signed by: Ede Green On 04/11/2021 22:39:13 PM
[2021-04-11 22:58] LABS: BASO % 0.1 % (0.0-1.0); EOS # 0.1 10^3/uL (0.0-0.5); EOS % 0.2 % (0.0-3.0); HEMATOCRIT 43.4 % (42.0-52.0); HEMOGLOBIN 15.8 g/dl (13.5-17.5); LYMPH # 1.2 10^3/uL (1.5-5.0); LYMPH % 4.9 % (24.0-44.0); MEAN CORPUSCULAR HEMOGLOBIN 29.3 pg (27.0-33.0); MEAN CORPUSCULAR HGB CONC 36.4 g/dl (32.0-36.5); MEAN CORPUSCULAR VOLUME 80.5 fl (80.0-96.0); MONO # 2.2 10^3/uL (0.0-0.8); MONO % 9.5 % (2.0-8.0); NEUTROPHILS # 19.7 10^3/uL (1.5-8.5); NEUTROPHILS % 84.2 % (36.0-66.0); PLATELET COUNT, AUTOMATED 393 10^3/uL (150-450); RED BLOOD COUNT 5.39 10^6/uL (4.30-6.10); WHITE BLOOD COUNT 23.4 10^3/uL (4.0-10.0)
[2021-04-11 23:06] LABS: ABG BASE EXCESS -5.5 (-2.0-2.0); ABG HCO3 15.5 MEQ/L (22.0-26.0); ABG O2 SATURATION 97.9 % (95.0-99.0); ABG PARTIAL PRESSURE CO2 21.7 mmHg (35.0-45.0); ABG PARTIAL PRESSURE O2 99.6 mmHg (75.0-100.0); ABG TOTAL CO2 16.1 MEQ/L (23.0-31.0); ABG pH (ARTERIAL) 7.471 UNITS (7.350-7.450)
[2021-04-11 23:21] LABS: BLOOD UREA NITROGEN 18 MG/DL (7-18); CREATININE FOR GFR 0.87 MG/DL (0.70-1.30); GLUCOSE, FASTING 77 MG/DL (70-100)
[2021-04-11 23:22] LABS: ALBUMIN 3.4 GM/DL (3.2-5.2); ALT/SGPT 48 U/L (12-78); BILIRUBIN,DIRECT 0.5 MG/DL (0.0-0.2); BILIRUBIN,TOTAL 1.4 MG/DL (0.2-1.0); CALCIUM LEVEL 10.3 MG/DL (8.8-10.2); CARBON DIOXIDE LEVEL 15 MEQ/L (21-32); CHLORIDE LEVEL 80 MEQ/L (98-107); CPK CREATINE PHOSPHOKINASE 3543 U/L (39-308); GLOMERULAR FILTRATION RATE > 60.0 (>42); MB/CK RELATIVE INDEX 0.93 (< OR =4); NT-PRO BNP 2924 PG/ML (<125); POTASSIUM SERUM 3.7 MEQ/L (3.5-5.1); SODIUM LEVEL 114 MEQ/L (136-145); THYROID STIMULATING HORMONE 0.736 uIU/ML (0.358-3.740); TOTAL PROTEIN 7.3 GM/DL (6.4-8.2); TROPONIN I 0.14 NG/ML (< 0.10)
--- NOTE | 2021-04-11 23:27 | REPVR ---
PROCEDURE INFORMATION: Exam: XR Chest Exam date and time: 04/11/2021 9:47 PM Age: 70 years old Clinical indication: Dyspnea/cough TECHNIQUE: Imaging protocol: XR of the chest. Views: 1 view. COMPARISON: CT Chest without contrast 04/11/2021 9:11 PM FINDINGS: Lungs: No acute infiltrate. Pleural spaces: Unremarkable. No pleural effusion. No pneumothorax. Heart/Mediastinum: Mild cardiomegaly. Bones/joints: Degenerative changes of the right shoulder. IMPRESSION: No acute infiltrate. Electronically signed by: Sherrill Mario On 04/11/2021 23:26:22 PM
--- NOTE | 2021-04-11 23:31 | REPVR ---
PROCEDURE INFORMATION: Exam: CT Chest Without Contrast; Diagnostic Exam date and time: 04/11/2021 9:14 PM Age: 70 years old Clinical indication: Injury or trauma; Fall; Blunt trauma (contusions or hematomas); Additional info: Fall, right chest wall contusion TECHNIQUE: Imaging protocol: Diagnostic computed tomography of the chest without contrast. 3D rendering (Not supervised by radiologist): MIP and/or 3D reconstructed images were created by the technologist. Radiation optimization: All CT scans at this facility use at least one of these dose optimization techniques: automated exposure control; mA and/or kV adjustment per patient size (includes targeted exams where dose is matched to clinical indication); or iterative reconstruction. COMPARISON: CT ANGIO CHEST - OUTSIDE PRIOR 06/17/2017 12:00 AM FINDINGS: Limitations: Limited by motion artifact. Bronchial tree: Bronchial occlusion of the lateral basal left lower lobe bronchus. Lungs: Paraseptal and centrilobular emphysematous lung disease. Mild ground-glass opacities in the lower lobes bilaterally. Pleural spaces: Unremarkable. No pneumothorax. No pleural effusion. Heart: Unremarkable. No cardiomegaly. No pericardial effusion. Coronary arteries: Severe coronary artery calcification. Aorta: Ascending thoracic aorta measures 4.3 cm in diameter. Moderate atherosclerotic disease of the aorta. Aorta is not fully evaluated on this study. Lymph nodes: Unremarkable. No enlarged lymph nodes. 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 Arteries are not fully evaluated on this study however. Intestine: Bowel is not fully imaged on this study however. No abnormal bowel dilatation. Bones/joints: Severe degenerative spine. Severe spinal stenosis in the L2-L3 level. No acute fracture. Degenerative changes of the shoulders bilaterally. Soft tissues: Right upper midline ventral abdominal hernia containing loop of colon. No evidence of bowel obstruction. Diastasis recti. IMPRESSION: 1. No evidence of acute chest injury. 2. Mild ground-glass opacities in the lower lobes bilaterally. Suspect mild pneumonia. 3. Bronchial occlusion of the lateral basal left lower lobe bronchus. Possible mucoid impaction. 4. Dilated ascending thoracic aorta. 5. Severe degenerative spine. 6. Severe spinal stenosis in the L2-L3 level. Electronically signed by: Sherrill Mario On 04/11/2021 23:30:20 PM
[2021-04-11] MEDS ORDERED: NS 1,000 ML IV ONE (23:40)
[2021-04-12 00:36] LABS: OSMOLALITY SERUM 237 MOSM/KG (280-301)
[2021-04-12] MEDS ORDERED: LOMOTIL 2.5MG/0.025MG TABLET PO PRN (01:00)
[2021-04-12] MEDS ORDERED: ONDANSETRON 4 MG TAB PO PRN (01:00)
[2021-04-12 01:16] LABS: BLOOD UREA NITROGEN 17 MG/DL (7-18); CALCIUM LEVEL 9.7 MG/DL (8.8-10.2); CARBON DIOXIDE LEVEL 18 MEQ/L (21-32); CHLORIDE LEVEL 81 MEQ/L (98-107); CREATININE FOR GFR 0.95 MG/DL (0.70-1.30); GLOMERULAR FILTRATION RATE > 60.0 (>42); GLUCOSE, FASTING 71 MG/DL (70-100); POTASSIUM SERUM 3.4 MEQ/L (3.5-5.1); SODIUM LEVEL 117 MEQ/L (136-145)
[2021-04-12] MEDS ORDERED: LORazepam 2 MG TAB PO PRN (01:25)
[2021-04-12] MEDS ORDERED: POTASSIUM CHLORIDE 10MEQ SR TABLET PO ONE (01:35)
[2021-04-12] MEDS ORDERED: NS 1,000 ML IV SCH ×3 (01:35→06:50)
--- NOTE | 2021-04-12 01:44 | HPEPDOC ---
[facility] Medical History & Physical Date of Admission Apr 12, 2021 Date of Service: Apr 12, 2021 Attending Physician: MIRELLA NEWMAN MD History and Physical CHIEF COMPLAINT: Dizziness, recent fall HISTORY OF PRESENT ILLNESS: Rick is a 70-year-old male presents to ED via EMS after being found down on h is bathroom floor. He tells me he was urinating on the toilet when he slid off and fell to the floor, unable to get himself up independently. His girlfriend called EMS who arrived "1 hour later." Denies hitting his head, loss of consciousness, loss of bowel or bladder function. Denies recurrent falls. Denies recent illness, fever/chills, fatigue, weakness. Reports loss of appetite x1 week with poor oral intake. Reports looser stools in colostomy. Denies headache, lightheadedness, changes in vision, chest pain, palpitations, shortness of breath, cough. Denies abdominal pain, nausea/vomiting, changes in sensation, numbness/tingling. Of note, patient was noted to be confused and poor historian in the ED. Per ED nurse, patient's daughter and healthcare proxy reports that this is in line with patient's baseline. In ED, VSS WNL. CBC significant for WBC 23.4. CMP significant for Na+ 114, Cl- 80, CO2 15. Anion gap 19. LA 1.6. Total CK 3543, troponin 0.14, BNP 2924. TSH WNL. ABG significant for PCO2 21.7, HCO3 15.5. EKG significant for A. fib, HR 74. Imaging unremarkable, as noted below. Patient received 1 L bolus NS. PAST MEDICAL HISTORY: 1. A. fib on Eliquis. 2. HTN. 3. COPD 4. History of alcohol abuse 5. BPH PAST SURGICAL HISTORY: 1. Ileocecal resection with colostomy (2019). 2. Back surgery. SOCIAL HISTORY: Marital status: Single. Resides in: Home Children: 3 Employment: Disabled Tobacco use: Former smoker, quit 1 year ago, [id number] history ETOH: Former drinker, quit 3 years ago, used to drink 6pack/week Illicit drug use: Denies Other relevant social factors: Patient lives alone but tells me his girlfriend checks on him often FAMILY HISTORY: Denies ALLERGIES: Please see below. REVIEW OF SYSTEMS: CONSTITUTIONAL: Reports decreasing appetite, poor oral intake. Denies fever/chills, fatigue. HEENT: Has headache, lightheadedness, changes in vision, rhinorrhea, nasal congestion, sore throat. CARDIOVASCULAR: Denies chest pain, palpitations. RESPIRATORY: Denies cough, shortness of breath. GASTROINTESTINAL: Reports loose stools in colostomy bag. Denies abdominal pain, nausea/vomiting, constipation. GENITOURINARY: Denies dysuria, hematuria, urinary hesitancy/frequency. SKIN: Denies rashes/bruises/abrasions. MUSCULOSKELETAL: Denies weakness. NEUROLOGICAL: Denies changes in sensation, numbness/tingling. HOME MEDICATIONS: Please see below. PHYSICAL EXAMINATION: VITAL SIGNS: Temperature 96.7, pulse 60, respiratory rate 18, blood pressure 132/83, pulse oximetry 96% on room air. GENERAL APPEARANCE: Alert, awake, laying in stretcher left lateral recumbent, NAD. HEENT: NC/AT, EOMI with poor tracking, bilateral mild scleral icterus, nares patent, dry mucous membranes with significant white plaques, erythematous pharynx with thick mucus, no dentition. CARDIOVASCULAR: Regular rate and rhythm [despite EKG showing Afib], normal heart sounds, no MRG. LUNGS: Coarse breath sounds in bilateral lower lobes, no wheezing, no accessory muscles used ABDOMEN: Soft, nontender, nondistended. Colostomy bag intact with good output, without surrounding skin changes. SKIN: Bruise extending from right paraspinal to right flank without swelling/b leeding/warmth, 1 cm stage2 abrasion over right lateral malleolus without active bleeding or surrounding skin changes. No decubitus ulcer. MUSCULOSKELETAL: Normal ROM, 4/5 strength right lower extremity, 5/5 strength otherwise. EXTREMITIES: Cool bilateral lower extremities, faint PT/PT pulses palpated bilaterally, no edema/cyanosis. NEUROLOGICAL: CN III-XII grossly intact, sensation intact. PSYCHIATRIC: AOx4, no depressed/anxious mood. LABORATORY DATA: See below. IMAGING: CT cervical spine (04/11) 1. No acute cervical spine fracture. 2. Chronic findings, as above. CT chest (04/11) 1. No evidence of acute chest injury. 2. Mild ground-glass opacities in the lower lobes bilaterally. Suspect mild pneumonia. 3. Bronchial occlusion of the lateral basal left lower lobe bronchus. Possible mucoid impaction. 4. Dilated ascending thoracic aorta. 5. Severe degenerative spine. 6. Severe spinal stenosis in the L2-L3 level. CXR (04/11) No acute infiltrate. Head CT (04/11) 1. No acute intracranial pathology. 2. Small air-fluid level in the left maxillary sinus. 3. Other chronic findings, as above. MICROBIOLOGY: Please see below. ASSESSMENT/PLAN: Rick is a 70-year-old male PMH A. fib on Eliquis, HTN, COPD, history of EtOH abuse who presents with dizziness and recent fall, found to have Na+ 114, total CK 3543, concerning for hyponatremia and rhabdomyolysis. #Hyponatremia, moderate In ED, Na+ 114 Patient is receiving 500mL bolus NS with repeat BMP to follow U/A with urine culture pending Order urine sodium, urine osmolality Repeat BMP following 500mL bolus NS significant for Na+ 117. Replete Na+ with NS (500mL 250ml/hr) Monitor BMP every 2 hours Nephrology (Dr. Vaughn Mancuso) on consult, appreciate further recommendations with regards to hyponatremia in setting of rhabdo #Rhabdomyolysis, most likely 2/2 dehydration, recent fall Per EMS, patient was most likely down for 90 minutes In ED, Cr 0.87, total CK 3543 Repeat CK Continue to monitor daily labs Start IVF Will replete with NS, following nephrology recommendations #Leukocytosis 2/2 dehydration vs rhabdomyolysis vs possible infection In ED, WBC 23.4, LA 1.6. Blood culture, urine culture pending Order pro-Nishant At this time, patient does not meet SIRS criteria. Will hold off on antibiotics pending further w/u for bacterial source #Dizziness most likely 2/2 hyponatremia, dehydration In ED, troponin 0.14 Refer to plan, as noted above Repeat troponin Bedrest with fall precautions #A. fib, rate controlled In ED, EKG A. fib with HR 74 Continue home Eliquis 5mg twice daily #HTN In ED, BP 132/83 Continue home diltiazem 180 mg Hold home Lasix, pending clinical improvement #History of alcohol abuse In ED, AST 113, ALT 48 Patient tells me he quit drinking alcohol 3 years ago WA protocol as a precaution Continue home folic acid 1 mg daily, Protonix 40 mg daily #History of ileocecal resection with colostomy Patient tells me he had ileocecal resection 3 years ago, but cannot remember why. Continue colostomy care #BPH Patient does not report hx BPH but, according to med rec, he is currently being treated for BPH Continue home tamsulosin 0.4 mg #DVT prophylaxis Continue home Eliquis 5 mg twice daily DIET: Low salt diet ACTIVITY: Bedrest, fall precaution DISPO: Pending clinical improvement CODE STATUS: Full code Vital Signs Vital Signs Date Time Temp Pulse Resp B/P (MAP) Pulse Ox O2 Delivery O2 Flow Rate FiO2 04/11/21 20:39 96.7 68 18 132/83 (99) 96 Room Air Laboratory Data Labs 24H Laboratory Tests 2 04/11/21 21:53: Immature Granulocyte % (Auto) 1.1, Neutrophils (%) (Auto) 84.2H, Lymphocytes (%) (Auto) 4.9L, Monocytes (%) (Auto) 9.5H, Eosinophils (%) (Auto) 0.2, Basophils (%) (Auto) 0.1, Neutrophils # (Auto) 19.7H, Lymphocytes # (Auto) 1.2L, Monocytes # (Auto) 2.2H, Eosinophils # (Auto) 0.1, Basophils # (Auto) 0.0, Nucleated Red Blood Cells % (auto) 0.0, Prothrombin Time 14.9H, Prothromb Time International Ratio 1.13, Anion Gap 19H, Glomerular Filtration Rate > 60.0, Osmolality 237L, Lactic Acid Level 1.6, Calcium Level 10.3H, Total Bilirubin 1.4H, Direct Bilirubin 0.5H, Aspartate Amino Transf (AST/SGOT) 113H, Alanine Aminotransferase (ALT/SGPT) 48, Alkaline Phosphatase 119H, Total Creatine Kinase 3543H, Creatine Kinase MB 33.0H, Creatine Kinase MB Relative Index 0.93, Troponin I 0.14H, SN-Gjl-P-Type Natriuretic Peptide 2924H, Total Protein 7.3, Albumin 3.4, Albumin/Globulin Ratio 0.9, Thyroid Stimulating Hormone (TSH) 0.736 04/11/21 23:00: Blood Gas Bicarbonate Standard 20.0L, Arterial Blood pH 7.471H, Arterial Blood Partial Pressure CO2 21.7L, Arterial Blood Partial Pressure O2 99.6, Arterial Blood Total CO2 16.1L, Arterial Blood HCO3 15.5L, Arterial Blood Base Excess - 5.5L, Arterial Blood Oxygen Saturation 97.9 CBC/BMP Laboratory Tests 04/11/21 21:53 Microbiology Microbiology 04/11/21 Respiratory Virus Panel (PCR) (SEE) - Final, Complete Human Rhinovirus/Enterovirus 04/11/21 Blood Culture, Received Pending 04/11/21 Blood Culture, Received Pending Home Medications Scheduled Apixaban (Eliquis) 5 Mg Tablet, 5 MG PO BID Baclofen (Baclofen) 20 Mg Tablet, 20 MG PO Q8H TAKE WITH FOOD OR MILK Buprenorphine (Buprenorphine) 20 Mcg/Hr Patch.tdwk, 20 MCG TOP QWEEK APPLY EVERY 7 DAYS Folic Acid (Folic Acid) 1 Mg Tab, 1 MG PO DAILY Furosemide (Furosemide) 20 Mg Tablet, 20 MG PO Q2D Gabapentin (Gabapentin) 300 Mg Capsule, 300 MG PO BID Levocetirizine Dihydrochloride (Levocetirizine Dihydrochloride) 5 Mg Tablet, 5 MG PO DAILY Magnesium Oxide (Magnesium Oxide) 400 Mg Tablet, 800 MG PO DAILY Pantoprazole Sodium (Protonix) 40 Mg Tab, 40 MG PO DAILY Ropinirole HCl (Ropinirole HCl) 1 Mg Tablet, 1 MG PO QHS Sodium Chloride (Sodium Chloride) 1 Gm Tablet, 1 GM PO BID Tamsulosin Hcl (Tamsulosin HCl) 0.4 Mg Capsule, 0.4 MG PO DAILY dilTIAZem HCl (Diltiazem 24Hr Cd) 180 Mg Cap.er.24h, 180 MG PO DAILY Scheduled PRN Diphenoxylate HCl/Atropine (Diphenoxylate-Atrop 2.5-0.025) 1 Each Tablet, 2 TABS PO QID PRN for DIARRHEA Hydrocodone/Acetaminophen (Hydrocodone-Acetamin 10-325 mg) 1 Each Tablet, 1 TAB PO Q8H PRN for SEVERE PAIN Loperamide HCl (Loperamide) 2 Mg Capsule, 2 MG PO QID PRN for DIARRHEA Ondansetron HCl (Ondansetron HCl) 4 Mg Tablet, 4 MG PO Q8H PRN for NAUSEA OR VOMITING Allergies Coded Allergies: promethazine (Verified Allergy, Unknown, restless leg, 04/11/21) A-FIB/CHADSVASC A-FIB History Current/History of A-Fib/PAF?: Yes Current PO Anticoag Therapy: Yes GME ATTESTATION GME ATTESTATION My faculty preceptor for this patient encounter was physically present during the encounter and was fully available. All aspects of the patient interview, examination, medical decision making process, and medical care plan development were reviewed and approved by the faculty preceptor. The faculty preceptor is aware and concurs with the plan as stated in the body of this note and will attest to such by his/her cosignature. ATTENDING NOTE I, Flory Newman, have independently examined this patient and performed my own physical exam, as well as reviewed the documentation and edited where necessary. I have discussed in detail with the resident / student the findings and plan of treatment as documented by the resident / student and edited their note. I agree with their findings and treatment plan and have edited their documentation. I will continue to follow the patient during this hospital stay. A&O x4, appears weak Significant hyponatremia with moderate clinical symptoms Discussed with Dr Mancuso, appreciate assistance with fluid management Giving 500cc NS over 2 hours and repeating BMP every 2 hours. Na going up appropriately. Continue to give NS per nephro recs and recheck BMP every 2 hours. Recheck CPK in the AM. Fluids should help with the rhabodo as long as sodium isn't corrected too quickly Ese Bob DO Apr 12, 2021 01:43 MIRELLA NEWMAN MD Apr 12, 2021 06:47
[2021-04-12 01:46] LABS: MAGNESIUM LEVEL 1.7 MG/DL (1.8-2.4); TROPONIN I 0.14 NG/ML (< 0.10)
[2021-04-12] MEDS: THIAMINE 100 MG TAB PO SCH ×3 (01:47→21:15)
[2021-04-12 03:08] LABS: OSMOLALITY URINE 340 MOSM/KG (50-1400)
[2021-04-12 03:25] LABS: SODIUM,RANDOM URINE < 10 MEQ/L
[2021-04-12 04:16] LABS: BLOOD UREA NITROGEN 16 MG/DL (7-18); CALCIUM LEVEL 8.8 MG/DL (8.8-10.2); CARBON DIOXIDE LEVEL 18 MEQ/L (21-32); CHLORIDE LEVEL 86 MEQ/L (98-107); CREATININE FOR GFR 0.77 MG/DL (0.70-1.30); GLOMERULAR FILTRATION RATE > 60.0 (>42); GLUCOSE, FASTING 66 MG/DL (70-100); POTASSIUM SERUM 3.5 MEQ/L (3.5-5.1); SODIUM LEVEL 118 MEQ/L (136-145)
[2021-04-12] MEDS ORDERED: NS 500 ML IV SCH (04:40)
[2021-04-12 05:45] LABS: BASO % 0.1 % (0.0-1.0); EOS % 0.1 % (0.0-3.0); HEMOGLOBIN 15.3 g/dl (13.5-17.5); LYMPH # 1.4 10^3/uL (1.5-5.0); LYMPH % 6.1 % (24.0-44.0); MEAN CORPUSCULAR HGB CONC 36.4 g/dl (32.0-36.5); MEAN CORPUSCULAR VOLUME 82.4 fl (80.0-96.0); MONO # 2.9 10^3/uL (0.0-0.8); MONO % 12.8 % (2.0-8.0); NEUTROPHILS # 17.8 10^3/uL (1.5-8.5); NEUTROPHILS % 79.6 % (36.0-66.0); PLATELET COUNT, AUTOMATED 373 10^3/uL (150-450); WHITE BLOOD COUNT 22.4 10^3/uL (4.0-10.0)
--- NOTE | 2021-04-12 05:51 | ECGEPIP ---
[facility] - ED Test Date: 2021-04-11 Pat Name: CHIRAG PIERRE Department: Room: - Gender: Male Residential Treatment Staff: EDWARDEMMIE : [id number] Requested By: OLIVA Thrasher Order Number: [id number] Reading MD: Chris Green Measurements Intervals [place] Rate: 74 P: MS: QRS: 151 QRSD: 94 T: 60 QT: 394 QTc: 437 Interpretive Statements Atrial fibrillation Right axis deviation Pulmonary disease pattern Incomplete right bundle branch block Right ventricular hypertrophy Nonspecific ST and T wave abnormality NO PRIORS FOR COMPARISON Electronically Signed on 04-12-2021 5:50:48 EST by Chris Green
[2021-04-12 07:41] LABS: BLOOD UREA NITROGEN 13 MG/DL (7-18); CALCIUM LEVEL 9.2 MG/DL (8.8-10.2); CARBON DIOXIDE LEVEL 19 MEQ/L (21-32); CHLORIDE LEVEL 88 MEQ/L (98-107); CPK CREATINE PHOSPHOKINASE 3712 U/L (39-308); CREATININE FOR GFR 0.72 MG/DL (0.70-1.30); GLOMERULAR FILTRATION RATE > 60.0 (>42); GLUCOSE, FASTING 61 MG/DL (70-100); POTASSIUM SERUM 3.7 MEQ/L (3.5-5.1); SODIUM LEVEL 118 MEQ/L (136-145)
[2021-04-12] MEDS: SODIUM CHLORIDE 1 GM TAB PO SCH ×2 (08:49→21:16)
[2021-04-12] MEDS: TAMSULOSIN 0.4 MG CAP PO SCH (08:49)
[2021-04-12] MEDS: MULTIVITAMINS/MINERALS THERAP 1 TAB PO SCH (08:49)
[2021-04-12] MEDS: BACLOFEN 10 MG TAB PO SCH ×3 (08:49→21:16)
[2021-04-12] MEDS: GABAPENTIN 300 MG CAP PO SCH ×2 (08:49→21:15)
[2021-04-12] MEDS: MAGNESIUM OXIDE 400MG TAB (MAG-OX) PO SCH (08:49)
[2021-04-12] MEDS: diltiaZEM **CD** 180 MG CAP PO SCH (08:51)
[2021-04-12] MEDS: FOLIC ACID 1 MG TAB PO SCH (08:56)
[2021-04-12] MEDS: PANTOPRAZOLE 40MG TAB (PROTONIX) PO SCH (08:56)
[2021-04-12] MEDS: D5W/0.9% SODIUM CHLORIDE 1,000 ML IV SCH ×2 (08:57→18:27)
[2021-04-12] MEDS ORDERED: APIXABAN 5 MG TAB (ELIQUIS) PO SCH (09:00)
[2021-04-12 09:18] LABS: ALBUMIN 2.9 GM/DL (3.2-5.2); BILIRUBIN,DIRECT 0.4 MG/DL (0.0-0.2); BILIRUBIN,TOTAL 1.2 MG/DL (0.2-1.0); TOTAL PROTEIN 6.3 GM/DL (6.4-8.2); TROPONIN I 0.14 NG/ML (< 0.10)
[2021-04-12 09:55] LABS: BLOOD UREA NITROGEN 13 MG/DL (7-18); CALCIUM LEVEL 9.2 MG/DL (8.8-10.2); CARBON DIOXIDE LEVEL 19 MEQ/L (21-32); CHLORIDE LEVEL 90 MEQ/L (98-107); CREATININE FOR GFR 0.82 MG/DL (0.70-1.30); GLOMERULAR FILTRATION RATE > 60.0 (>42); GLUCOSE, FASTING 59 MG/DL (70-100); POTASSIUM SERUM 3.7 MEQ/L (3.5-5.1); SODIUM LEVEL 119 MEQ/L (136-145)
[2021-04-12] MEDS ORDERED: ALBUTEROL SULFATE 2.5 MG/0.5 ML INH NEB SOLN NEB PRN (12:30)
--- NOTE | 2021-04-12 12:38 | CR ---
NEPHROLOGY CONSULTATION DATE: 04/12/2021 REQUESTING PHYSICIAN: Jordyn Garibay M.D. REASON FOR CONSULTATION: Hyponatremia. HISTORY OF PRESENT ILLNESS: Mr. Gaitan is a 70-year-old gentleman who presented to the emergency room via ambulance last evening as he fell at home while sitting on the toilet. He could not get up. He was brought to the emergency room and found to have a sodium level of 114. He also has elevated CPK level of almost 3000, which is felt to be due to rhabdomyolysis. I was called by the admitting physician bleacher pulp and we discussed the case. Patient has received some normal saline and sodium level has improved to 117 this morning. PAST MEDICAL HISTORY: Significant for: 1. History of atrial fibrillation, on chronic anticoagulation with Eliquis. 2. Hypertension. 3. Chronic obstructive pulmonary disease (COPD). 4. Prior history of alcohol use. 5. History of benign prostatic hypertrophy (BPH). PAST SURGICAL HISTORY: Significant for: 1. Iliosacral resection with colostomy in 2019. 2. History of back surgery. MEDICATIONS: His home medications include: - Eliquis 5 mg twice a day - Baclofen 20 mg every 8 hours - folic acid 1 mg daily - furosemide 20 mg every two days - gabapentin 300 mg twice a day - magnesium oxide 4800 mg daily - pantoprazole 40 mg daily - Requip 1 mg at bedtime - sodium chloride 1 gram tablet twice a day for possible chronic hyponatremia - tamsulosin 0.4 mg daily - diltiazem ER 180 mg daily - Imodium as needed - Zofran as needed ALLERGIES: Patient has allergy to PROMETHAZINE. FAMILY HISTORY: Noncontributory. REVIEW OF SYSTEMS: CONSTITUTIONAL: Patient reported that his colostomy had moderately good stools. He denies any vomiting. There is no history of fevers or chills. EARS, NOSE AND THROAT: Unremarkable. CARDIOVASCULAR SYSTEM: Significant for atrial fibrillation and hypertension. He denies any leg edema or shortness of breath. RESPIRATORY SYSTEM: Negative for cough or hemoptysis. GASTROINTESTINAL (GI) SYSTEM: Significant for liquid stool in the colostomy. He denies any blood in the stool. Patient also denied any vomiting, but did have loss of appetite and decreased oral intake. GENITOURIARY () SYSTEM: Significant for benign prostatic hypertrophy (BPH). Patient denies any difficulty voiding. MUSCULOSKELETAL SYSTEM: Significant for back pain and degenerative arthritis, but denies any leg edema. ENDOCRINE SYSTEM: Negative for diabetes or thyroid problems HEMATOLOGICAL SYSTEM: Significant for chronic anticoagulation due to atrial fibrillation. NEUROLGOCIAL SYSTEM: Significant for no loss of consciousness and no history of stroke in the past. PHYSICAL EXAMINATION: GENERAL: Patient is awake and able to answer questions appropriately VITAL SIGNS: Temperature 98 degrees Fahrenheit, heart rate 70 per minute, respiratory rate 18 per minute, blood pressure 112/75 mmHg, oxygen saturation 98% on room air. HEAD: Atraumatic. NECK: Supple and without jugular venous distention (JVD) or thyroid enlargement. HEART SOUNDS: Regular. LUNGS: Clear to auscultation. ABDOMEN: Soft and nontender. Colostomy is functioning. Bowel sounds are normal. EXTREMITIES: Without any cyanosis or clubbing. NEUROLOGIC: He is without a focal deficit. LABORATORY DATA: Admission labs show sodium level 114, potassium 3.7, BUN 18, creatinine 0.87, glucose 77 and osmolality 237. Lactic acid 1.6 and calcium 10.3. Initial CPK level was 3543. Troponin 0.14. Brain natriuretic peptide (BNP) level 2924. Repeat calcium 117, potassium 3.4. PROBLEMS: 1. Hyponatremia. Most likely, this is related to poor oral intake and gastrointestinal (GI) losses. Patient reports liquid stool through his colostomy. He is clinically dehydrated. He is improving with intravenous (IV) normal saline and I recommend to continue with normal saline at about 100 mL/hour. We would not want to correct his hyponatremia too rapidly. Electrolytes should be monitored every few hours. 2. Rhabdomyolysis. His CPK level is now up to 3712. This is still very mild and does not carry a risk for causing acute renal failure. I feel that at this point, we should still continue with IV fluid of normal saline at 100 mL/hour and focus on correcting his hyponatremia at the appropriate rate. I do not feel that mild rhabdomyolysis has any risk for causing acute renal failure. His diuretics should remain on hold. 3. Hypertension. Blood pressure seems to be reasonable at present. I would recommend to hold his antihypertensive and diuretic. Thank you for involving me in the care of Mr. Gaitan. I will follow him along with you.
--- NOTE | 2021-04-12 12:50 | IPNPDOC ---
Date Seen The patient was seen on 04/12/21. Progress Note SUBJECTIVE: Hematuria on exam, H/H stable. Hypoglycemia, fluids switched to D5W0.9NS @ 100 mL/hr. Improving NA and Cl. Trop remains elevated at 0.14; however, no No acute complaints overnight. OBJECTIVE: PHYSICAL EXAMINATION: VITAL SIGNS: Please see below GENERAL APPEARANCE: NAD, resting in bed, AAOx 3, lethargic to conversant, appropriate HEENT: NC/AT, EOMI, no dentition CARDIOVASCULAR: irregularly irregular rhythm, rate controlled. S1S2 +, no m/r/g LUNGS: mild crackles in posterior lower lobes, no w/r/r ABDOMEN: Soft, nontender, nondistended. Colostomy bag in RLQ intact with good output, without surrounding skin changes. : BRB around uretheral meatus INTEGUMENTARY: Bruise extending from right paraspinal to right flank without swelling/bleeding/warmth, 1 cm stage2 abrasion over right lateral malleolus without active bleeding or surrounding skin changes. No decubitus ulcer. MUSCULOSKELETAL: Normal ROM, 4/5 strength right lower extremity, 5/5 strength otherwise. EXTREMITIES: No edema/cyanosis, pulses in tact in all extremities NEUROLOGICAL: CN III-XII grossly intact, sensation intact. PSYCHIATRIC: mood and affect appropriate LABORATORY DATA: See below. IMAGING: CT cervical spine (04/11) 1. No acute cervical spine fracture. 2. Chronic findings, as above. CT chest (04/11) 1. No evidence of acute chest injury. 2. Mild ground-glass opacities in the lower lobes bilaterally. Suspect mild pneumonia. 3. Bronchial occlusion of the lateral basal left lower lobe bronchus. Possible mucoid impaction. 4. Dilated ascending thoracic aorta. 5. Severe degenerative spine. 6. Severe spinal stenosis in the L2-L3 level. CXR (04/11) No acute infiltrate. Head CT (04/11) 1. No acute intracranial pathology. 2. Small air-fluid level in the left maxillary sinus. 3. Other chronic findings, as above. MICROBIOLOGY: Please see below. ASSESSMENT/PLAN: Rick is a 70-year-old male PMH A. fib on Eliquis, HTN, COPD, history of EtOH abuse who presents with dizziness and recent fall, found to have Na+ 114, total CK 3543, concerning for hyponatremia and rhabdomyolysis. #Hyponatremia, acute and likely 2/2 to severe dehydration -Na improved by 4 over past 10 hours, been on NSS at 250 cc/hr -D/w nephrology and suggest stopping NS and switching to D5W with 0.9NS due to hypoglycemia -F/u urine studies -UA neg -F/u BMP Q4Hs, careful not to correct more than 8-10 over 24 hour pd -Nephrology consulted and following closely. #Acute rhabdomyolysis most likely 2/2 dehydration, fall -Per EMS, patient was most likely down for 90 minutes -In ED, Cr 0.87, total CK 3543 -CK today minimally elevated -C/w IVFs above, monitoring CK #Leukocytosis 2/2 dehydration vs rhabdomyolysis vs Enterovirus/rhinovirus on resp panel vs. possible other infection -+ resp panel is known. -WBC 23.4 on admission, improved some to 22K today, LA 1.6, afebrile, BS stable on RA -UA neg -CT chest could not r/o PNA -F/u blood culture, procalcitonin- If low, do not start abx #Enterovirus/rhinovirus on resp panel -On RA -Tylenol PRN if fevers, supportive care #Bronchial occlusion of the lateral basal left lower lobe bronchus, possible mucoid impaction. -Seen on CT chest -Currently on RA -Will order duonebs ATC and PRN, acapella Q2HRs #Hematuria -H/H stable, VS stable -Unknown if patient was straight catheterized for urine but if he was, could be traumatic bleeding with known BPH -Holding Eliquis for now -If bleeding stops, resume. For now Teds/SCDs #Hypoglycemia likely 2/2 to decreased PO intake -BS 60's, slightly symptomatic -FS Q6H -Started on D5 0.9NS IVFS -Monitor closely -hypoglycemic protocol #Elevated troponin likely 2/2 to ischemic demand in presence of CHF? -No prior echocardiogram or ECG on file here -Will check to see who store stock associate is following him in community and request reports -Trop remains on 0.14, not worsening . BNP > 2K , no s/s of fluid overload -HD stable -No events on tele -Echocardiogram ordered for 04/13/21 #Dizziness most likely 2/2 hyponatremia, dehydration -Improving -C/w treatment above -PT/OT when labs more stable. -Fall risk #Transaminitis likely 2/2 to alcohol abuse -AST remains minimally elevated -Hold hepatotoxic meds if able -Daily CMP #A. fib, rate controlled -Rate controlled. -C/w diltiazem, holding Eliquis 5mg twice daily for hematuria #HTN -Stable -C/w diltiazem 180 mg -Hold home Lasix, pending clinical improvement #History of alcohol abuse -No s/s of withdrawl -[facility] protocol as a precaution -Continue home folic acid 1 mg daily, Protonix 40 mg daily #History of ileocecal resection with colostomy -Patient tells me he had ileocecal resection 3 years ago, but cannot remember why. -Continue colostomy care #BPH -Continue home tamsulosin 0.4 mg #DVT prophylaxis -Holding eliquis for now with hematuria. teds/scds, resume eliquis if bleeding stopped. DISPOSITION: Switching to med/surg tele. PT/OT when more stable. VS, I&O, 24H, Fishbone Vital Signs/I&O Vital Signs Date Time Temp Pulse Resp B/P (MAP) Pulse Ox O2 Delivery O2 Flow Rate FiO2 04/12/21 11:00 69 18 112/75 (87) 98 Room Air 04/11/21 20:39 96.7 I&O- Last 24 Hours up to 6 AM 04/12/21 06:00 Intake Total 500 ml Output Total 0 ml Balance 500 ml Laboratory Data 24H LABS Laboratory Tests 2 04/11/21 21:53: Immature Granulocyte % (Auto) 1.1, Neutrophils (%) (Auto) 84.2H, Lymphocytes (%) (Auto) 4.9L, Monocytes (%) (Auto) 9.5H, Eosinophils (%) (Auto) 0.2, Basophils (%) (Auto) 0.1, Neutrophils # (Auto) 19.7H, Lymphocytes # (Auto) 1.2L, Monocytes # (Auto) 2.2H, Eosinophils # (Auto) 0.1, Basophils # (Auto) 0.0, Nucleated Red Blood Cells % (auto) 0.0, Prothrombin Time 14.9H, Prothromb Time International Ratio 1.13, Anion Gap 19H, Glomerular Filtration Rate > 60.0, Osmolality 237L, Lactic Acid Level 1.6, Calcium Level 10.3H, Total Bilirubin 1.4H, Direct B ilirubin 0.5H, Aspartate Amino Transf (AST/SGOT) 113H, Alanine Aminotransferase (ALT/SGPT) 48, Alkaline Phosphatase 119H, Total Creatine Kinase 3543H, Creatine Kinase MB 33.0H, Creatine Kinase MB Relative Index 0.93, Troponin I 0.14H, GR-[id number]-I-Type Natriuretic Peptide 2924H, Total Protein 7.3, Albumin 3.4, Albumin/Globulin Ratio 0.9, Thyroid Stimulating Hormone (TSH) 0.736 04/11/21 23:00: Blood Gas Bicarbonate Standard 20.0L, Arterial Blood pH 7.471H, Arterial Blood Partial Pressure CO2 21.7L, Arterial Blood Partial Pressure O2 99.6, Arterial Blood Total CO2 16.1L, Arterial Blood HCO3 15.5L, Arterial Blood Base Excess - 5.5L, Arterial Blood Oxygen Saturation 97.9 04/12/21 01:15: Anion Gap 18H, Glomerular Filtration Rate > 60.0, Calcium Level 9.7, Troponin I 0.14H, Magnesium Level 1.7L, Procalcitonin 0.13 04/12/21 02:25: Urine Color YELLOW, Urine Appearance CLEAR, Urine pH 6.0, Urine Specific [place] 1.012, Urine Protein 2+H, Urine Glucose (UA) NEGATIVE, Urine Ketones TRACEH, Urine Blood 2+H, Urine Nitrite NEGATIVE, Urine Bilirubin NEGATIVE, Urine Urobilinogen 0.2, Urine Leukocyte Esterase NEGATIVE, Urine WBC (Auto) 1, Urine RBC (Auto) 2, Urine Hyaline Casts (Auto) 0, Urine Bacteria (Auto) NEGATIVE, Urine Squamous Epithelial Cells 0, Urine Sperm (Auto) , Urine Osmolality 340, Urine Random Sodium < 10 04/12/21 02:59: Anion Gap 14, Glomerular Filtration Rate > 60.0, Calcium Level 8.8 04/12/21 05:33: Immature Granulocyte % (Auto) 1.3, Neutrophils (%) (Auto) 79.6H, Lymphocytes (%) (Auto) 6.1L, Monocytes (%) (Auto) 12.8H, Eosinophils (%) (Auto) 0.1, Basophils (%) (Auto) 0.1, Neutrophils # (Auto) 17.8H, Lymphocytes # (Auto) 1.4L, Monocytes # (Auto) 2.9H, Eosinophils # (Auto) 0.0, Basophils # (Auto) 0.0, Nucleated Red Blood Cells % (auto) 0.0 04/12/21 06:47: Total Bilirubin 1.2H, Direct Bilirubin 0.4H, Aspartate Amino Transf (AST/SGOT) 127H, Alanine Aminotransferase (ALT/SGPT) 45, Alkaline Phosphatase 102, Troponin I 0.14H, CB-Yzs-T-Type Natriuretic Peptide 2584H, Total Protein 6.3L, Albumin 2.9L, Albumin/Globulin Ratio 0.9 04/12/21 06:51: Anion Gap 11, Glomerular Filtration Rate > 60.0, Calcium Level 9.2, Total Creatine Kinase 3712H 04/12/21 09:03: Anion Gap 10, Glomerular Filtration Rate > 60.0, Calcium Level 9.2 CBC/BMP Laboratory Tests 04/11/21 21:53 04/12/21 01:15 04/12/21 02:59 04/12/21 05:33 04/12/21 06:51 04/12/21 09:03 Microbiology Microbiology 04/11/21 Respiratory Virus Panel (PCR) (SEE) - Final, Complete Human Rhinovirus/Enterovirus 04/11/21 Blood Culture, Received Pending 04/11/21 Blood Culture, Received Pending Monica Barahona MD Apr 12, 2021 12:50
[2021-04-12] MEDS ORDERED: GLUCOSE 4GM CHEW TABLET PO PRN (13:00)
[2021-04-12] MEDS ORDERED: GLUCAGON INJ 1MG VIAL SC PRN (13:00)
[2021-04-12] MEDS ORDERED: DEXTROSE 50% 50 ML SYRINGE IV PRN (13:00)
[2021-04-12] MEDS: IPRATROPIUM 0.5MG/ALBUTEROL 2.5MG INH SOL UD 3ML (DUONEB) NEB SCH ×2 (14:00→19:49)
[2021-04-12 14:02] LABS: BLOOD UREA NITROGEN 13 MG/DL (7-18); CALCIUM LEVEL 9.5 MG/DL (8.8-10.2); CARBON DIOXIDE LEVEL 21 MEQ/L (21-32); CHLORIDE LEVEL 90 MEQ/L (98-107); CREATININE FOR GFR 0.73 MG/DL (0.70-1.30); GLOMERULAR FILTRATION RATE > 60.0 (>42); GLUCOSE, FASTING 88 MG/DL (70-100); POTASSIUM SERUM 3.8 MEQ/L (3.5-5.1); SODIUM LEVEL 122 MEQ/L (136-145)
[2021-04-12] MEDS: NYSTATIN 500,000 U/5 ML SUSP UDC SS SCH ×3 (15:04→21:15)
[2021-04-12 16:16] VITALS: BP 111/69
[2021-04-12 16:17] VITALS: BP 111/69
[2021-04-12 17:21] LABS: BLOOD UREA NITROGEN 11 MG/DL (7-18); CARBON DIOXIDE LEVEL 21 MEQ/L (21-32); CHLORIDE LEVEL 95 MEQ/L (98-107); CREATININE FOR GFR 0.69 MG/DL (0.70-1.30); GLOMERULAR FILTRATION RATE > 60.0 (>42); GLUCOSE, FASTING 90 MG/DL (70-100); POTASSIUM SERUM 3.5 MEQ/L (3.5-5.1); SODIUM LEVEL 124 MEQ/L (136-145)
[2021-04-12] MEDS: rOPINIRole 1MG TAB PO SCH (21:15)
[2021-04-12 22:00] VITALS: BP 110/70
[2021-04-12 22:03] LABS: BLOOD UREA NITROGEN 11 MG/DL (7-18); CALCIUM LEVEL 8.8 MG/DL (8.8-10.2); CARBON DIOXIDE LEVEL 16 MEQ/L (21-32); CHLORIDE LEVEL 98 MEQ/L (98-107); CREATININE FOR GFR 0.65 MG/DL (0.70-1.30); GLOMERULAR FILTRATION RATE > 60.0 (>42); GLUCOSE, FASTING 126 MG/DL (70-100); POTASSIUM SERUM 3.3 MEQ/L (3.5-5.1); SODIUM LEVEL 126 MEQ/L (136-145)
[2021-04-13 00:43] LABS: BLOOD UREA NITROGEN 12 MG/DL (7-18); CALCIUM LEVEL 8.7 MG/DL (8.8-10.2); CARBON DIOXIDE LEVEL 16 MEQ/L (21-32); CHLORIDE LEVEL 98 MEQ/L (98-107); CREATININE FOR GFR 0.63 MG/DL (0.70-1.30); GLOMERULAR FILTRATION RATE > 60.0 (>42); GLUCOSE, FASTING 127 MG/DL (70-100); POTASSIUM SERUM 3.2 MEQ/L (3.5-5.1); SODIUM LEVEL 126 MEQ/L (136-145)
[2021-04-13] MEDS: IPRATROPIUM 0.5MG/ALBUTEROL 2.5MG INH SOL UD 3ML (DUONEB) NEB SCH ×4 (02:00→20:07)
[2021-04-13] MEDS: BACLOFEN 10 MG TAB PO SCH ×3 (05:41→21:56)
[2021-04-13] MEDS: D5W/0.9% SODIUM CHLORIDE 1,000 ML IV SCH (05:42)
[2021-04-13 06:00] VITALS: BP 109/67
[2021-04-13 06:16] LABS: BASO % 0.1 % (0.0-1.0); EOS % 0.1 % (0.0-3.0); HEMATOCRIT 36.6 % (42.0-52.0); LYMPH # 0.8 10^3/uL (1.5-5.0); LYMPH % 4.4 % (24.0-44.0); MEAN CORPUSCULAR HEMOGLOBIN 30.4 pg (27.0-33.0); MEAN CORPUSCULAR HGB CONC 36.1 g/dl (32.0-36.5); MEAN CORPUSCULAR VOLUME 84.3 fl (80.0-96.0); MONO # 1.3 10^3/uL (0.0-0.8); MONO % 7.1 % (2.0-8.0); NEUTROPHILS # 16.3 10^3/uL (1.5-8.5); NEUTROPHILS % 87.2 % (36.0-66.0); PLATELET COUNT, AUTOMATED 298 10^3/uL (150-450); RED BLOOD COUNT 4.34 10^6/uL (4.30-6.10); WHITE BLOOD COUNT 18.7 10^3/uL (4.0-10.0)
[2021-04-13 06:34] LABS: HEMOGLOBIN 13.2 g/dl (13.5-17.5)
[2021-04-13 06:41] LABS: ALBUMIN 2.3 GM/DL (3.2-5.2); ALT/SGPT 34 U/L (12-78); BILIRUBIN,DIRECT 0.3 MG/DL (0.0-0.2); BILIRUBIN,TOTAL 0.7 MG/DL (0.2-1.0); BLOOD UREA NITROGEN 10 MG/DL (7-18); CALCIUM LEVEL 8.7 MG/DL (8.8-10.2); CARBON DIOXIDE LEVEL 18 MEQ/L (21-32); CHLORIDE LEVEL 102 MEQ/L (98-107); CREATININE FOR GFR 0.54 MG/DL (0.70-1.30); GLOMERULAR FILTRATION RATE > 60.0 (>42); GLUCOSE, FASTING 115 MG/DL (70-100); NT-PRO BNP 1648 PG/ML (<125); POTASSIUM SERUM 3.1 MEQ/L (3.5-5.1); SODIUM LEVEL 130 MEQ/L (136-145); TOTAL PROTEIN 5.2 GM/DL (6.4-8.2)
[2021-04-13] MEDS ORDERED: POTASSIUM CHLORIDE 10MEQ SR TABLET PO ONE (07:25)
[2021-04-13 09:15] VITALS: BP 134/70
[2021-04-13] MEDS: SODIUM CHLORIDE 1 GM TAB PO SCH ×2 (09:15→21:56)
[2021-04-13] MEDS: MAGNESIUM OXIDE 400MG TAB (MAG-OX) PO SCH (09:15)
[2021-04-13] MEDS: PANTOPRAZOLE 40MG TAB (PROTONIX) PO SCH (09:15)
[2021-04-13] MEDS: FOLIC ACID 1 MG TAB PO SCH (09:15)
[2021-04-13] MEDS: NYSTATIN 500,000 U/5 ML SUSP UDC SS SCH ×4 (09:15→21:56)
[2021-04-13] MEDS: TAMSULOSIN 0.4 MG CAP PO SCH (09:15)
[2021-04-13] MEDS: THIAMINE 100 MG TAB PO SCH ×2 (09:15→21:56)
[2021-04-13] MEDS: MULTIVITAMINS/MINERALS THERAP 1 TAB PO SCH (09:15)
[2021-04-13] MEDS: GABAPENTIN 300 MG CAP PO SCH ×2 (09:16→21:56)
[2021-04-13] MEDS: diltiaZEM **CD** 180 MG CAP PO SCH (09:18)
--- NOTE | 2021-04-13 11:00 | REP ---
INDICATION: CHF. COMPARISON: 04/11/2021 a portable exam TECHNIQUE: AP and lateral FINDINGS: The technique utilized in obtaining the radiograph has magnified the cardiac silhouette and accentuated the interstitial markings. The cardiomediastinal silhouette is unchanged. There is mild cardiomegaly accentuated by technique. Since the last examination increased interstitial markings have developed in the right upper and lower lobes. The pleural angles are unchanged and remain sharp. There is no significant change in the osseous structures. IMPRESSION: Possible developing right upper lower lobe pneumonia. Follow-up with PA view of the chest. <Electronically signed by Manoj Delarosa > 04/13/21 [id number]
[2021-04-13 12:33] LABS: BLOOD UREA NITROGEN 9 MG/DL (7-18); CALCIUM LEVEL 9.3 MG/DL (8.8-10.2); CARBON DIOXIDE LEVEL 21 MEQ/L (21-32); CHLORIDE LEVEL 101 MEQ/L (98-107); CREATININE FOR GFR 0.56 MG/DL (0.70-1.30); GLOMERULAR FILTRATION RATE > 60.0 (>42); GLUCOSE, FASTING 91 MG/DL (70-100); POTASSIUM SERUM 3.3 MEQ/L (3.5-5.1); SODIUM LEVEL 130 MEQ/L (136-145)
--- NOTE | 2021-04-13 12:48 | IPN ---
NEPHROLOGY PROGRESS NOTE DATE: 04/13/2021 SUBJECTIVE: Mr. Gaitan is seen this morning in his bedside. He is lying in his bed with head end elevated and nursing staff is trying to give his morning dose of medications. Patient has a little difficulty with swallowing and he is falling asleep. He was able to answer questions. PHYSICAL EXAMINATION: Temperature 97 degrees Fahrenheit, heart rate 72 per minute and respiratory rate 18 per minute. Blood pressure 109/67 mmHg and oxygen saturation 93% on room air. Head: Atraumatic. Neck: Supple and JVD not abnormally elevated. Heart: Sounds are irregular. Lungs: Diminished breath sounds and basilar rales. Abdomen: Soft and nontender and bowel sounds are normal. Extremities: Without any cyanosis or clubbing. Neurologically: He is awake and able to answer questions. He does not have any focal deficit; however, he seems somewhat sleepy or lethargic. LABORATORY DATA: Today's labs show: WBC count 18.7, hemoglobin 13.2, hematocrit 36.6, platelets 298. Sodium is up to 130, potassium 3.1, CO2 18, chloride 102, BUN 10, creatinine 0.54, glucose 115, calcium 8.7. CPK level came down to 1082. His BNP level is 1648. PROBLEMS/PLAN: 1. Hyponatremia: Sodium level is improving nicely and appropriately. His I.V. fluid is being stopped now. 2. Hypokalemia: This is related to a decreased oral intake. Patient will be given oral potassium chloride 40 mEq. His electrolytes will be repeated again tomorrow. 3. Rhabdomyolysis: His CPK level has improved to 1082. There is no risk for acute kidney injury at this point. His I.V. fluid is being stopped. 4. Congestive heart failure and leukocytosis: I am concerned about possibility of aspiration and congestive heart failure. His I.V. fluid is being stopped. Chest x-ray is being ordered. I recommend I.V. antibiotics for possible aspiration pneumonia.
[2021-04-13 14:00] VITALS: BP 113/56
[2021-04-13 16:46] LABS: BLOOD UREA NITROGEN 10 MG/DL (7-18); CALCIUM LEVEL 9.5 MG/DL (8.8-10.2); CARBON DIOXIDE LEVEL 18 MEQ/L (21-32); CHLORIDE LEVEL 102 MEQ/L (98-107); CREATININE FOR GFR 0.64 MG/DL (0.70-1.30); GLOMERULAR FILTRATION RATE > 60.0 (>42); GLUCOSE, FASTING 72 MG/DL (70-100); POTASSIUM SERUM 3.6 MEQ/L (3.5-5.1); SODIUM LEVEL 131 MEQ/L (136-145)
--- NOTE | 2021-04-13 16:48 | IPNPDOC ---
Date Seen The patient was seen on 04/13/21. Progress Note SUBJECTIVE: No hematuria in Marie bag this morning, resuming eliquis BID. WBC improving without antibiotics; however, left upper lobe infiltrate seen on repeat chest x- ray. Started on levofloxacin IV, as atypical causes don't always have high procalcitonin. No sputum collected yet. Fluids stopped. No acute complaints overnight. OBJECTIVE: PHYSICAL EXAMINATION: VITAL SIGNS: Please see below GENERAL APPEARANCE: NAD, resting in bed, AAOx 3, lethargic, appropriate HEENT: NC/AT, EOMI, no dentition CARDIOVASCULAR: irregularly irregular rhythm, rate controlled. S1S2 +, no m/r/g LUNGS: mild crackles in posterior lower lobes, no w/r/r ABDOMEN: Soft, nontender, nondistended. Colostomy bag in RLQ intact with good output, without surrounding skin changes. : marie catheter with yellow urine, no blood or clots INTEGUMENTARY: intact, poor skin turgor MUSCULOSKELETAL: Normal ROM, 4/5 strength right lower extremity, 5/5 strength otherwise. EXTREMITIES: No edema/cyanosis, pulses in tact in all extremities NEUROLOGICAL: CN III-XII grossly intact, sensation intact. PSYCHIATRIC: mood and affect appropriate LABORATORY DATA: See below. IMAGING: CXR 04/13/21: Possible developing right upper lower lobe pneumonia. Follow-up with PA view of the chest. CT cervical spine (04/11) 1. No acute cervical spine fracture. 2. Chronic findings, as above. CT chest (04/11) 1. No evidence of acute chest injury. 2. Mild ground-glass opacities in the lower lobes bilaterally. Suspect mild pne umonia. 3. Bronchial occlusion of the lateral basal left lower lobe bronchus. Possible mucoid impaction. 4. Dilated ascending thoracic aorta. 5. Severe degenerative spine. 6. Severe spinal stenosis in the L2-L3 level. CXR (04/11) No acute infiltrate. Head CT (04/11) 1. No acute intracranial pathology. 2. Small air-fluid level in the left maxillary sinus. 3. Other chronic findings, as above. MICROBIOLOGY: Please see below. ASSESSMENT/PLAN: Rick is a 70-year-old male PMH A. fib on Eliquis, HTN, COPD, history of EtOH abuse who presents with dizziness and recent fall, found to have Na+ 114, total CK 3543, concerning for hyponatremia and rhabdomyolysis. #Hyponatremia, acute and likely 2/2 to severe dehydration -Improved to 130, -D/w nephrology and suggest stopping fluids today -Cannot r/o atypical PNA legionnaire's as cause for hyponatremia -UA neg -F/u BMP daily -Nephrology consulted #Acute rhabdomyolysis most likely 2/2 dehydration, fall -Per EMS, patient was most likely down for 90 minutes -In ED, Cr 0.87, total CK 3543 -CK decreasing -IVFs stopped today by nephro, encourage PO intake of fluid #Hypokalemia, acute -K replaced -Daily labs #Leukocytosis 2/2 dehydration vs rhabdomyolysis vs Enterovirus/rhinovirus on resp panel vs. possible other infection (PNA, atypical?) -+ resp panel is known. -WBC improving slowly without abx ;however, repeat CXR today RUL PNA -R/o atypical cause of PNA (legionnaire's, mycoplasma), f/u testing -UA neg -CT chest could not r/o PNA -On levofloxacin -F/u blood culture #Enterovirus/rhinovirus on resp panel -On RA -Tylenol PRN if fevers, supportive care #Bronchial occlusion of the lateral basal left lower lobe bronchus, possible mucoid impaction. -Seen on CT chest -Currently on RA -C/w duonebs ATC and PRN, acapella Q2HRs #Hematuria- resolved -H/H stable, VS stable -Unknown if patient was straight catheterized for urine but if he was, could be traumatic bleeding with known BPH -restarting eliquis #Hypoglycemia likely 2/2 to decreased PO intake-improving -Encourage PO intake now that D5 fluids are d/lori -Monitor closely -FS Q6H, hypoglycemic protocol #Elevated troponin likely 2/2 to ischemic demand in presence of CHF? -No prior echocardiogram or ECG on file here -Trop trending down, not worsening . BNP also improved -HD stable -No events on tele -Echocardiogram ordered, f/u result #Dizziness most likely 2/2 hyponatremia, dehydration- improved -C/w treatment above -PT/OT when labs more stable. -Fall risk #Transaminitis likely 2/2 to alcohol abuse -AST remains minimally elevated -Hold hepatotoxic meds if able -Daily CMP #A. fib, rate controlled -Rate controlled. -C/w diltiazem, eliquis #HTN -Stable -C/w diltiazem 180 mg -Hold home Lasix, pending clinical improvement #History of alcohol abuse -No s/s of withdrawl -[facility] protocol as a precaution -Continue home folic acid 1 mg daily, Protonix 40 mg daily #History of ileocecal resection with colostomy -ileocecal resection 3 years ago -Continue colostomy care #BPH -Continue home tamsulosin 0.4 mg #DVT prophylaxis -eliquis DISPOSITION: PT/OT when more stable. Nephrology following. VS, I&O, 24H, Fishbone Vital Signs/I&O Vital Signs Date Time Temp Pulse Resp B/P (MAP) Pulse Ox O2 Delivery O2 Flow Rate FiO2 04/13/21 14:00 97.0 60 17 113/56 (75) 95 Room Air I&O- Last 24 Hours up to 6 AM 04/13/21 06:00 Intake Total 3540 ml Output Total 250 ml Balance 3290 ml Laboratory Data 24H LABS Laboratory Tests 2 04/12/21 16:41: Anion Gap 8, Glomerular Filtration Rate > 60.0, Calcium Level 9.0, Troponin I 0.13H 04/12/21 21:30: Anion Gap 12, Glomerular Filtration Rate > 60.0, Calcium Level 8.8 04/12/21 23:43: Bedside Glucose (Misc Panel) 143H 04/13/21 00:01: Anion Gap 12, Glomerular Filtration Rate > 60.0, Calcium Level 8.7L 04/13/21 05:12: Bedside Glucose (Misc Panel) 123H 04/13/21 05:46: Immature Granulocyte % (Auto) 1.1, Neutrophils (%) (Auto) 87.2H, Lymphocytes (%) (Auto) 4.4L, Monocytes (%) (Auto) 7.1, Eosinophils (%) (Auto) 0.1, Basophils (%) (Auto) 0.1, Neutrophils # (Auto) 16.3H, Lymphocytes # (Auto) 0.8L, Monocytes # (Auto) 1.3H, Eosinophils # (Auto) 0.0, Basophils # (Auto) 0.0, Nucleated Red Blood Cells % (auto) 0.0, Anion Gap 10, Glomerular Filtration Rate > 60.0, Calcium Level 8.7L, Total Bilirubin 0.7, Direct Bilirubin 0.3H, Aspartate Amino Transf (AST/SGOT) 66H, Alanine Aminotransferase (ALT/SGPT) 34, Alkaline Phosphatase 78, Total Creatine Kinase 1082H, IR-Oqg-M-Type Natriuretic Peptide 1648H, Total Protein 5.2L, Albumin 2.3#L, Albumin/Globulin Ratio 0.8 04/13/21 11:47: Bedside Glucose (Misc Panel) 90 04/13/21 11:51: Anion Gap 8, Glomerular Filtration Rate > 60.0, Calcium Level 9.3, Procalcitonin 0.07 04/13/21 15:58: CBC/BMP Laboratory Tests 04/12/21 16:41 04/12/21 21:30 04/13/21 00:01 04/13/21 05:46 04/13/21 11:51 Microbiology Microbiology 04/11/21 Respiratory Virus Panel (PCR) (SEE) - Final, Complete Human Rhinovirus/Enterovirus 04/11/21 Blood Culture - Preliminary, Resulted No growth after 24 hours . All specim... 04/11/21 Blood Culture - Preliminary, Resulted No growth after 24 hours . All specim... Mnoica Barahona MD Apr 13, 2021 16:48
[2021-04-13] MEDS: LevoFLOXacin IV 500 MG in IV 1 EA IV SCH (16:57)
[2021-04-13 21:25] LABS: BLOOD UREA NITROGEN 10 MG/DL (7-18); CALCIUM LEVEL 9.4 MG/DL (8.8-10.2); CARBON DIOXIDE LEVEL 18 MEQ/L (21-32); CHLORIDE LEVEL 103 MEQ/L (98-107); CREATININE FOR GFR 0.88 MG/DL (0.70-1.30); GLOMERULAR FILTRATION RATE > 60.0 (>42); GLUCOSE, FASTING 119 MG/DL (70-100); POTASSIUM SERUM 3.5 MEQ/L (3.5-5.1); SODIUM LEVEL 131 MEQ/L (136-145)
[2021-04-13] MEDS: rOPINIRole 1MG TAB PO SCH (21:56)
[2021-04-13] MEDS: APIXABAN 5 MG TAB (ELIQUIS) PO SCH (21:56)
[2021-04-13 22:00] VITALS: BP 118/71
[2021-04-14] MEDS: IPRATROPIUM 0.5MG/ALBUTEROL 2.5MG INH SOL UD 3ML (DUONEB) NEB SCH ×4 (01:28→20:40)
[2021-04-14] MEDS: BACLOFEN 10 MG TAB PO SCH ×3 (05:22→21:43)
[2021-04-14 06:00] VITALS: BP 117/70
[2021-04-14 06:26] LABS: BASO % 0.1 % (0.0-1.0); EOS % 0.1 % (0.0-3.0); HEMATOCRIT 36.1 % (42.0-52.0); LYMPH % 4.6 % (24.0-44.0); MEAN CORPUSCULAR HEMOGLOBIN 30.4 pg (27.0-33.0); MEAN CORPUSCULAR VOLUME 84.5 fl (80.0-96.0); MONO # 1.3 10^3/uL (0.0-0.8); MONO % 6.2 % (2.0-8.0); NEUTROPHILS # 18.7 10^3/uL (1.5-8.5); NEUTROPHILS % 88.1 % (36.0-66.0); PLATELET COUNT, AUTOMATED 308 10^3/uL (150-450); RED BLOOD COUNT 4.27 10^6/uL (4.30-6.10); WHITE BLOOD COUNT 21.2 10^3/uL (4.0-10.0)
[2021-04-14 06:59] LABS: ALBUMIN 2.4 GM/DL (3.2-5.2); ALT/SGPT 31 U/L (12-78); BILIRUBIN,TOTAL 0.8 MG/DL (0.2-1.0); BLOOD UREA NITROGEN 11 MG/DL (7-18); CALCIUM LEVEL 9.3 MG/DL (8.8-10.2); CARBON DIOXIDE LEVEL 17 MEQ/L (21-32); CHLORIDE LEVEL 101 MEQ/L (98-107); CPK CREATINE PHOSPHOKINASE 582 U/L (39-308); CREATININE FOR GFR 0.72 MG/DL (0.70-1.30); GLOMERULAR FILTRATION RATE > 60.0 (>42); GLUCOSE, FASTING 88 MG/DL (70-100); POTASSIUM SERUM 3.7 MEQ/L (3.5-5.1); SODIUM LEVEL 131 MEQ/L (136-145); TOTAL PROTEIN 5.8 GM/DL (6.4-8.2); TROPONIN I 0.09 NG/ML (< 0.10)
[2021-04-14 08:10] VITALS: BP 115/68
[2021-04-14] MEDS: MULTIVITAMINS/MINERALS THERAP 1 TAB PO SCH (09:11)
[2021-04-14] MEDS: MAGNESIUM OXIDE 400MG TAB (MAG-OX) PO SCH (09:11)
[2021-04-14] MEDS: SODIUM CHLORIDE 1 GM TAB PO SCH ×2 (09:11→21:43)
[2021-04-14] MEDS: TAMSULOSIN 0.4 MG CAP PO SCH (09:14)
[2021-04-14] MEDS: FOLIC ACID 1 MG TAB PO SCH (09:14)
[2021-04-14] MEDS: THIAMINE 100 MG TAB PO SCH (09:14)
[2021-04-14] MEDS: diltiaZEM **CD** 180 MG CAP PO SCH (09:14)
[2021-04-14] MEDS: PANTOPRAZOLE 40MG TAB (PROTONIX) PO SCH (09:14)
[2021-04-14] MEDS: GABAPENTIN 300 MG CAP PO SCH ×2 (09:14→21:44)
[2021-04-14] MEDS: APIXABAN 5 MG TAB (ELIQUIS) PO SCH ×2 (09:14→21:44)
[2021-04-14] MEDS: NYSTATIN 500,000 U/5 ML SUSP UDC SS SCH ×4 (09:15→21:43)
--- NOTE | 2021-04-14 11:52 | ECHO ---
ECHOCARDIOGRAM DATE OF PROCEDURE: 04/13/2021 Age: Gender: Male Height: 170 cm Weight: 77.4 kg REFERRING PHYSICIAN: Monica Barahona M.D. INDICATION: Heart failure, unspecified. MEASUREMENTS: 2D Measurements: Left atrium 3.8 cm Aortic root 3.9 cm Left ventricle diastole 3.7 cm Inferior septum 1.74 cm Posterior wall 1.56 cm Inferior vena cava 2.3 cm with more than 50% respiratory variation. Doppler measurements: Mild aortic regurgitation No aortic stenosis Aortic valve velocity 152 cm/sec Trace mitral regurgitation No mitral stenosis Very mild tricuspid regurgitation Estimated right ventricle systolic pressure 31-36 mmHg Estimated aortic pressure 5-10 mmHg No pulmonic regurgitation Pulmonary acceleration time 106 msec MITRAL ANNULAR TISSUE DOPPLER: E prime septal 5.9 cm/sec E prime lateral 9.0 cm/sec DESCRIPTION: Rhythm was atrial fibrillation with slow ventricular response. Image quality was good. This was a 2D, M-mode, color flow Doppler and pulse wave Doppler examination that included mitral annular tissue Doppler. CONCLUSIONS: 1. Moderately-severe concentric left ventricular hypertrophy with mildly reduced left ventricular (LV) cavity size. Hyperdynamic LV systolic function with left ventricular ejection fraction (LVEF) 75% by visual assessment. No regional LV wall motion abnormalities. LV diastolic function assessment indeterminate due to presence of atrial fibrillation. 2. Normal right ventricle size and systolic function. Suggestive of mild elevation of estimated right ventricle systolic pressure. 3. Moderate aortic valve sclerosis of a 3-cusp aortic valve. Mild aortic regurgitation. No aortic stenosis. 4. Moderate mitral annular calcification with trace mitral regurgitation. No mitral stenosis. 5. Tiny pericardial effusion. No diastolic chamber collapse. 6. Moderate left atrial dilitation by visual assessment. 7. Mild dilatation of the aortic root at the level of the sinuses of Valsalva.
--- NOTE | 2021-04-14 12:05 | IPNPDOC ---
Text Note Date of Service The patient was seen on 04/14/21. NOTE SUBJECTIVE: -No acute complaints overnight. OBJECTIVE: VITAL SIGNS: Please see below GENERAL APPEARANCE: NAD, resting in bed, AAOx 3 HEENT: NC/AT, EOMI, no dentition CARDIOVASCULAR: irregularly irregular rhythm, rate controlled. S1S2 +, no m/r/g LUNGS: mild crackles in posterior lower lobes, no w/r/r ABDOMEN: Soft, nontender, nondistended. Colostomy bag in RLQ intact with good output, without surrounding skin changes. : marie catheter with yellow urine, no blood or clots INTEGUMENTARY: intact, poor skin turgor MUSCULOSKELETAL: Normal ROM, 5/5 strength throughout EXTREMITIES: No edema/cyanosis, pulses in tact in all extremities NEUROLOGICAL: CN III-XII grossly intact, sensation intact. PSYCHIATRIC: mood and affect appropriate LABORATORY DATA: Na 131 K 3.7 Cr 0.72 CK 582 WBC 21.2 Hgb 13 platelets 308 IMAGING: CXR 04/13/21: Possible developing right upper lower lobe pneumonia. Follow-up with PA view of the chest. CT cervical spine (04/11) 1. No acute cervical spine fracture. 2. Chronic findings, as above. CT chest (04/11) 1. No evidence of acute chest injury. 2. Mild ground-glass opacities in the lower lobes bilaterally. Suspect mild pneumonia. 3. Bronchial occlusion of the lateral basal left lower lobe bronchus. Possible mucoid impaction. 4. Dilated ascending thoracic aorta. 5. Severe degenerative spine. 6. Severe spinal stenosis in the L2-L3 level. CXR (04/11) No acute infiltrate. Head CT (04/11) 1. No acute intracranial pathology. 2. Small air-fluid level in the left maxillary sinus. 3. Other chronic findings, as above. MICROBIOLOGY: Please see below. ASSESSMENT/PLAN: 70-year-old M with chronic A. fib on Eliquis, HTN, COPD, with EtOH abuse who presented with dizziness and recent fall, found to have Na+ 114, total CK 3543 and admitted for hyponatremia and rhabdomyolysis. #Hyponatremia, acute and likely 2/2 to severe dehydration -Improved to 131 -s/p IVF -Could not r/o atypical PNA legionnaire's as cause for hyponatremia, on levaquin -UA neg -F/u BMP daily -Nephrology consulted #Acute rhabdomyolysis most likely 2/2 dehydration, fall, resolving -CK decreasing -s/p IVFs #Hypokalemia, acute -K replaced -Daily labs #Leukocytosis 2/2 dehydration vs rhabdomyolysis vs Enterovirus/rhinovirus on resp panel vs. CAP -+ resp panel is known. -CXR today RUL PNA, on levaquin -f/u legionnaire's, mycoplasma -UA neg -F/u blood culture #Enterovirus/rhinovirus on resp panel -On RA -Tylenol PRN if fevers, supportive care #Bronchial occlusion of the lateral basal left lower lobe bronchus, possible mucoid impaction. -Seen on CT chest -Currently on RA -C/w duonebs ATC and PRN, acapella Q2HRs #Hematuria- resolved -H/H stable, VS stable -Unknown if patient was straight catheterized for urine but if he was, could be traumatic bleeding with known BPH -restarting eliquis #Hypoglycemia likely 2/2 to decreased PO intake-improving -Encourage PO intake now that D5 fluids are d/lori -Monitor closely -FS Q6H, hypoglycemic protocol #Elevated troponin likely 2/2 to ischemic demand in presence of CHF? -No prior echocardiogram or ECG on file here -Trop trending down, not worsening . BNP also improved -HD stable -No events on tele -Echocardiogram ordered, f/u result #Dizziness most likely 2/2 hyponatremia, dehydration- improved -C/w treatment above -PT/OT when labs more stable. -Fall risk #Transaminitis likely 2/2 to alcohol abuse -Avoid hepatotoxic meds -Daily CMP #A. fib, rate controlled -Rate controlled. -C/w diltiazem, eliquis #HTN -Stable -C/w diltiazem 180 mg -Hold home Lasix, pending clinical improvement #History of alcohol abuse -No s/s of withdrawal -CIRI protocol as a precaution -Continue home folic acid 1 mg daily, Protonix 40 mg daily #History of ileocecal resection with colostomy -ileocecal resection 3 years ago -Continue colostomy care #BPH -Continue home tamsulosin 0.4 mg #DVT prophylaxis -eliquis DISPOSITION: PT/OT ongoing. Nephrology following. VS,Fishbone, I+O VS, Fishbone, I+O Laboratory Tests 04/13/21 11:51 04/13/21 15:58 04/13/21 20:55 04/14/21 05:35 Vital Signs Date Time Temp Pulse Resp B/P (MAP) Pulse Ox O2 Delivery O2 Flow Rate FiO2 04/14/21 09:14 76 118/72 04/14/21 08:10 97.4 24 95 Room Air I&O- Last 24 Hours up to 6 AM 04/14/21 05:59 Intake Total 1200 ml Output Total 1150 ml Balance 50 ml BRISSA HUNT MD Apr 14, 2021 10:02
[2021-04-14 14:00] VITALS: BP 108/62
[2021-04-14 14:53] VITALS: BP 108/62
[2021-04-14] MEDS: LevoFLOXacin IV 500 MG in IV 1 EA IV SCH (17:58)
--- NOTE | 2021-04-14 20:34 | IPN ---
NEPHROLOGY PROGRESS NOTE DATE: 04/14/2021 SUBJECTIVE: Mr. Gaitan is seen this morning at this bedside. He is feeling better today and seems to be more alert and able to have a brief conversation. He is able to answer questions. He is still somewhat short of breath and frail. OBJECTIVE: PHYSICAL EXAMINATION: VITAL SIGNS: Temperature is 97.4 degrees Fahrenheit, heart rate 76 per minute and respiratory rate 24 per minute. Blood pressure is 114/68 mm of mercury and oxygen saturation is 95% on room air. HEENT: His head is atraumatic. NECK: Supple and JVD not abnormally elevated. HEART: Irregular. LUNGS: Diminished breath sounds and bibasilar rales. ABDOMEN: Soft and nontender and bowel sounds are normal. EXTREMITIES: Without any cyanosis or clubbing. NEUROLOGICAL: Awake and without any focal deficits. LABORATORY STUDIES: Today's labs show a WBC count of 21.2, hemoglobin 13 and hematocrit 36. Sodium is 131 and potassium is 3.7. BUN 11 and creatinine 0.72. CPK has come down to 582. PROBLEMS: 1. Hyponatremia - sodium level has improved and stabilized. His IV fluid has been stopped since yesterday. He is currently not on any diuretic. 2. Hypokalemia - potassium level has also improved with potassium supplementation. No further intervention is needed. 3. Rhabdomyolysis his rhabdomyolysis has also improved significantly and at this point he does not need any more IV fluids. 4. Congestive heart failure - The patient has been on low dose diuretic at home. He had severe hyponatremia on admission. At present his oral intake is just adequate, and I do not feel that we should put him back on diuretic.
[2021-04-14] MEDS: rOPINIRole 1MG TAB PO SCH (21:44)
[2021-04-14 22:00] VITALS: BP 122/79
[2021-04-15] MEDS: IPRATROPIUM 0.5MG/ALBUTEROL 2.5MG INH SOL UD 3ML (DUONEB) NEB SCH ×4 (02:00→20:25)
[2021-04-15] MEDS: BACLOFEN 10 MG TAB PO SCH ×3 (05:22→21:58)
[2021-04-15 06:00] VITALS: BP 106/65
[2021-04-15 06:29] LABS: BASO % 0.1 % (0.0-1.0); EOS % 0.2 % (0.0-3.0); HEMATOCRIT 33.7 % (42.0-52.0); LYMPH # 1.4 10^3/uL (1.5-5.0); LYMPH % 6.9 % (24.0-44.0); MEAN CORPUSCULAR HEMOGLOBIN 30.4 pg (27.0-33.0); MEAN CORPUSCULAR HGB CONC 35.6 g/dl (32.0-36.5); MEAN CORPUSCULAR VOLUME 85.3 fl (80.0-96.0); MONO # 1.2 10^3/uL (0.0-0.8); NEUTROPHILS % 86.1 % (36.0-66.0); PLATELET COUNT, AUTOMATED 276 10^3/uL (150-450); RED BLOOD COUNT 3.95 10^6/uL (4.30-6.10); WHITE BLOOD COUNT 19.7 10^3/uL (4.0-10.0)
[2021-04-15 06:47] LABS: ALBUMIN 2.1 GM/DL (3.2-5.2); ALT/SGPT 26 U/L (12-78); BILIRUBIN,TOTAL 0.9 MG/DL (0.2-1.0); BLOOD UREA NITROGEN 9 MG/DL (7-18); CARBON DIOXIDE LEVEL 18 MEQ/L (21-32); CHLORIDE LEVEL 101 MEQ/L (98-107); CREATININE FOR GFR 0.63 MG/DL (0.70-1.30); GLOMERULAR FILTRATION RATE > 60.0 (>42); GLUCOSE, FASTING 75 MG/DL (70-100); POTASSIUM SERUM 3.8 MEQ/L (3.5-5.1); SODIUM LEVEL 127 MEQ/L (136-145); TOTAL PROTEIN 5.8 GM/DL (6.4-8.2)
[2021-04-15] MEDS: NYSTATIN 500,000 U/5 ML SUSP UDC SS SCH ×4 (09:38→20:49)
[2021-04-15] MEDS: FOLIC ACID 1 MG TAB PO SCH (09:39)
[2021-04-15] MEDS: MAGNESIUM OXIDE 400MG TAB (MAG-OX) PO SCH (09:39)
[2021-04-15] MEDS: GABAPENTIN 300 MG CAP PO SCH ×2 (09:39→20:49)
[2021-04-15] MEDS: PANTOPRAZOLE 40MG TAB (PROTONIX) PO SCH (09:39)
[2021-04-15] MEDS: MULTIVITAMINS/MINERALS THERAP 1 TAB PO SCH (09:49)
[2021-04-15] MEDS: TAMSULOSIN 0.4 MG CAP PO SCH (09:49)
[2021-04-15] MEDS: diltiaZEM **CD** 180 MG CAP PO SCH (09:49)
[2021-04-15] MEDS: SODIUM BICARBONATE 325 MG TAB PO SCH ×2 (09:50→20:49)
[2021-04-15] MEDS: APIXABAN 5 MG TAB (ELIQUIS) PO SCH ×2 (09:50→20:49)
--- NOTE | 2021-04-15 12:28 | IPN ---
NEPHROLOGY PROGRESS NOTE DATE: 04/15/2021 SUBJECTIVE: Mr. Gaitan is seen this morning on his bedside. He is feeling better and looks much better today. He is not anxious or lethargic today. He denies any nausea, vomiting, dyspnea or chest pain. His only complaint is pain in his legs. PHYSICAL EXAMINATION: Temperature 98.2 degrees Fahrenheit, heart rate 72 per minute and respiratory rate 18 per minute. Blood pressure 104/68 mmHg and oxygen saturation 96% on room air. Head: Atraumatic. Neck: Supple and without JVD or thyroid enlargement. Heart: Sounds are regular. Lungs: With slightly diminished breath sounds at bases. Abdomen: Soft and nontender and bowel sounds are normal. Extremities: Without any cyanosis or clubbing. Neurologically: He awake, alert and able to answer questions appropriately. He does not seem to have any neurological deficit. LABORATORY DATA: Today's labs show: Sodium level down to 127, potassium 3.8, CO2 18, BUN 9, creatinine 0.63, glucose 75 and calcium 9. Total protein 5.8 and albumin 2.1. PROBLEMS/PLAN: 1. Hyponatremia: Patient has recurrent hyponatremia. 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 I have discussed with him about the need for fluid restriction. I am going to put him on 1600 mL per day of fluid restriction. 2. Metabolic acidosis: This patient also has recurrent metabolic acidosis. I am going to start him on sodium bicarbonate 1300 mg twice a day. His oral sodium chloride is being stopped. 3. Rhabdomyolysis: His rhabdomyolysis has resolved and he does not need any I.V. fluid at this point. 4. Generalized weakness and deconditioning: He is still very weak and likely to require some rehab prior to discharge.
[2021-04-15 13:30] VITALS: BP 94/60
[2021-04-15 14:00] VITALS: BP 100/68
[2021-04-15] MEDS: HYDROcodone/APAP LIQUID 7.5-325MG 15ML UDC (LORTAB ELIXIR) PO PRN (14:01)
[2021-04-15 16:09] LABS: MYCOPLASMA PNEUMONIAE IgG 345 U/mL (0-99); MYCOPLASMA PNEUMONIAE IgM <770 U/mL (0-769)
--- NOTE | 2021-04-15 17:02 | IPNPDOC ---
Text Note Date of Service The patient was seen on 04/15/21. NOTE SUBJECTIVE: -No acute complaints overnight. Did complaint that his legs were hurting this morning. OBJECTIVE: VITAL SIGNS: Please see below GENERAL APPEARANCE: NAD, sitting up at the side of the bed with one foot dangling off, AAOx 3 HEENT: NC/AT, EOMI, no dentition CARDIOVASCULAR: irregularly irregular rhythm, rate controlled. S1S2 +, no m/r/g LUNGS: mild crackles in posterior lower lobes, no w/r/r ABDOMEN: Soft, nontender, nondistended. Colostomy bag in RLQ intact with good output, without surrounding skin changes. : marie catheter with yellow urine, no blood or clots INTEGUMENTARY: intact, poor skin turgor MUSCULOSKELETAL: Normal ROM, 5/5 strength throughout EXTREMITIES: No edema/cyanosis, pulses in tact in all extremities NEUROLOGICAL: CN III-XII grossly intact, sensation intact. PSYCHIATRIC: mood and affect appropriate LABORATORY DATA: Na 127 Cr 0.63 WBC 19.7 Hgb 12 platelets 276 IMAGING: CXR 04/13/21: Possible developing right upper lower lobe pneumonia. Follow-up with PA view of the chest. CT cervical spine (04/11) 1. No acute cervical spine fracture. 2. Chronic findings, as above. CT chest (04/11) 1. No evidence of acute chest injury. 2. Mild ground-glass opacities in the lower lobes bilaterally. Suspect mild pneumonia. 3. Bronchial occlusion of the lateral basal left lower lobe bronchus. Possible mucoid impaction. 4. Dilated ascending thoracic aorta. 5. Severe degenerative spine. 6. Severe spinal stenosis in the L2-L3 level. CXR (04/11) No acute infiltrate. Head CT (04/11) 1. No acute intracranial pathology. 2. Small air-fluid level in the left maxillary sinus. 3. Other chronic findings, as above. MICROBIOLOGY: Please see below. ASSESSMENT/PLAN: 70-year-old M with chronic A. fib on Eliquis, HTN, COPD, with EtOH abuse who presented with dizziness and recent fall, found to have Na+ 114, total CK 3543 and admitted for hyponatremia and rhabdomyolysis. #Hyponatremia, acute and likely 2/2 to severe dehydration -s/p IVF -UA neg -F/u BMP daily -Nephrology consulted, suspect SIADH, placed him on fluid restriction #Acute rhabdomyolysis most likely 2/2 dehydration, fall, resolving -s/p IVFs #Hypokalemia, acute -K replaced -Daily BMP #Leukocytosis 2/2 dehydration vs rhabdomyolysis vs Enterovirus/rhinovirus on resp panel vs. CAP -+ resp panel is known. -CXR today RUL PNA, on levaquin, day 3 -f/u legionnaire's, mycoplasma -UA neg -F/u blood culture #Enterovirus/rhinovirus on resp panel -On RA -Tylenol PRN if fevers, supportive care #Bronchial occlusion of the lateral basal left lower lobe bronchus, possible mucoid impaction. -Seen on CT chest -Currently on RA -C/w duonebs ATC and PRN, acapella Q2HRs #Hematuria- resolved -H/H stable, VS stable -Unknown if patient was straight catheterized for urine but if he was, could be traumatic bleeding with known BPH -restarting eliquis #Hypoglycemia likely 2/2 to decreased PO intake-improving -Encourage PO intake now that D5 fluids are d/lori -Monitor closely -FS Q6H, hypoglycemic protocol #Elevated troponin likely 2/2 to ischemic demand in presence of CHF? -No prior echocardiogram or ECG on file here -Trop trending down, not worsening . BNP also improved -HD stable -No events on tele -Echocardiogram ordered, f/u result #Dizziness most likely 2/2 hyponatremia, dehydration- improved -C/w treatment above -PT/OT when labs more stable. -Fall risk #Transaminitis likely 2/2 to alcohol abuse -Avoid hepatotoxic meds -Daily CMP #A. fib, rate controlled -Rate controlled. -C/w diltiazem, eliquis #HTN -Stable -C/w diltiazem 180 mg -Hold home Lasix, pending clinical improvement #History of alcohol abuse -No s/s of withdrawal -[facility] protocol as a precaution -Continue home folic acid 1 mg daily, Protonix 40 mg daily #History of ileocecal resection with colostomy -ileocecal resection 3 years ago -Continue colostomy care #BPH -Continue home tamsulosin 0.4 mg #DVT prophylaxis -eliquis DISPOSITION: PT/OT ongoing. Nephrology following. VS,Fishbone, I+O VS, Fishbone, I+O Laboratory Tests 04/15/21 06:03 Vital Signs Date Time Temp Pulse Resp B/P (MAP) Pulse Ox O2 Delivery O2 Flow Rate FiO2 04/15/21 14:47 16 04/15/21 14:00 97.8 83 100/68 (79) 96 Room Air I&O- Last 24 Hours up to 6 AM 04/15/21 06:00 Intake Total 2980 ml Output Total 1525 ml Balance 1455 ml BRISSA HUNT MD Apr 15, 2021 17:01
[2021-04-15] MEDS: LevoFLOXacin IV 500 MG in IV 1 EA IV SCH (17:41)
[2021-04-15] MEDS: rOPINIRole 1MG TAB PO SCH (20:49)
[2021-04-15 22:00] VITALS: BP 91/55
[2021-04-16] MEDS: IPRATROPIUM 0.5MG/ALBUTEROL 2.5MG INH SOL UD 3ML (DUONEB) NEB SCH ×4 (02:03→20:29)
[2021-04-16] MEDS: HYDROcodone/APAP LIQUID 7.5-325MG 15ML UDC (LORTAB ELIXIR) PO PRN ×2 (04:30→14:45)
[2021-04-16] MEDS: BACLOFEN 10 MG TAB PO SCH ×3 (06:01→22:57)
[2021-04-16 06:39] VITALS: BP 96/60
[2021-04-16 07:50] LABS: BASO % 0.2 % (0.0-1.0); EOS # 0.1 10^3/uL (0.0-0.5); EOS % 0.9 % (0.0-3.0); HEMOGLOBIN 11.3 g/dl (13.5-17.5); LYMPH # 1.4 10^3/uL (1.5-5.0); LYMPH % 10.6 % (24.0-44.0); MEAN CORPUSCULAR HEMOGLOBIN 30.5 pg (27.0-33.0); MEAN CORPUSCULAR HGB CONC 35.3 g/dl (32.0-36.5); MEAN CORPUSCULAR VOLUME 86.5 fl (80.0-96.0); MONO % 7.6 % (2.0-8.0); NEUTROPHILS # 10.3 10^3/uL (1.5-8.5); NEUTROPHILS % 79.9 % (36.0-66.0); PLATELET COUNT, AUTOMATED 276 10^3/uL (150-450); WHITE BLOOD COUNT 12.9 10^3/uL (4.0-10.0)
[2021-04-16 07:58] LABS: ALBUMIN 2.1 GM/DL (3.2-5.2); ALT/SGPT 26 U/L (12-78); BILIRUBIN,TOTAL 0.7 MG/DL (0.2-1.0); BLOOD UREA NITROGEN 10 MG/DL (7-18); CALCIUM LEVEL 8.8 MG/DL (8.8-10.2); CARBON DIOXIDE LEVEL 20 MEQ/L (21-32); CHLORIDE LEVEL 100 MEQ/L (98-107); CREATININE FOR GFR 0.69 MG/DL (0.70-1.30); GLOMERULAR FILTRATION RATE > 60.0 (>42); GLUCOSE, FASTING 77 MG/DL (70-100); POTASSIUM SERUM 3.6 MEQ/L (3.5-5.1); SODIUM LEVEL 128 MEQ/L (136-145); TOTAL PROTEIN 5.9 GM/DL (6.4-8.2)
[2021-04-16] MEDS: MULTIVITAMINS/MINERALS THERAP 1 TAB PO SCH (10:30)
[2021-04-16] MEDS: NYSTATIN 500,000 U/5 ML SUSP UDC SS SCH ×4 (10:30→20:48)
[2021-04-16] MEDS: SODIUM BICARBONATE 325 MG TAB PO SCH ×2 (10:30→20:48)
[2021-04-16] MEDS: TAMSULOSIN 0.4 MG CAP PO SCH (10:31)
[2021-04-16] MEDS: GABAPENTIN 300 MG CAP PO SCH ×2 (10:31→20:49)
[2021-04-16] MEDS: PANTOPRAZOLE 40MG TAB (PROTONIX) PO SCH (10:31)
[2021-04-16] MEDS: FOLIC ACID 1 MG TAB PO SCH (10:31)
[2021-04-16] MEDS: MAGNESIUM OXIDE 400MG TAB (MAG-OX) PO SCH (10:31)
[2021-04-16] MEDS: diltiaZEM **CD** 180 MG CAP PO SCH (10:33)
[2021-04-16] MEDS: APIXABAN 5 MG TAB (ELIQUIS) PO SCH ×2 (10:34→20:49)
[2021-04-16 14:00] VITALS: BP 107/62
[2021-04-16] MEDS: LevoFLOXacin 500 MG TABLET PO SCH (14:45)
--- NOTE | 2021-04-16 15:09 | IPNPDOC ---
Text Note Date of Service The patient was seen on 04/16/21. NOTE SUBJECTIVE: -No acute complaints overnight. -Working with PT/OT, making slow progress, at this time they are recommending subacute rehab OBJECTIVE: VITAL SIGNS: Please see below GENERAL APPEARANCE: NAD, sitting up at the side of the bed with one foot dangling off, AAOx 3 HEENT: NC/AT, EOMI, no dentition CARDIOVASCULAR: irregularly irregular rhythm, rate controlled. S1S2 +, no m/r/g LUNGS: mild crackles in posterior lower lobes, no w/r/r ABDOMEN: Soft, nontender, nondistended. Colostomy bag in RLQ intact. INTEGUMENTARY: intact, poor skin turgor MUSCULOSKELETAL: Normal ROM, 5/5 strength throughout EXTREMITIES: No edema/cyanosis, pulses in tact in all extremities NEUROLOGICAL: CN III-XII grossly intact, sensation intact. PSYCHIATRIC: mood and affect appropriate LABORATORY DATA: WBC 12.9 Hgb 11.3 platelets 276 na 128 K 3.6 Cr 0.69 IMAGING: CXR 04/13/21: Possible developing right upper lower lobe pneumonia. Follow-up with PA view of the chest. CT cervical spine (04/11) 1. No acute cervical spine fracture. 2. Chronic findings, as above. CT chest (04/11) 1. No evidence of acute chest injury. 2. Mild ground-glass opacities in the lower lobes bilaterally. Suspect mild pneumonia. 3. Bronchial occlusion of the lateral basal left lower lobe bronchus. Possible mucoid impaction. 4. Dilated ascending thoracic aorta. 5. Severe degenerative spine. 6. Severe spinal stenosis in the L2-L3 level. CXR (04/11) No acute infiltrate. Head CT (04/11) 1. No acute intracranial pathology. 2. Small air-fluid level in the left maxillary sinus. 3. Other chronic findings, as above. MICROBIOLOGY: Please see below. ASSESSMENT/PLAN: 70-year-old M with chronic A. fib on Eliquis, HTN, COPD, with EtOH abuse who presented with dizziness and recent fall, found to have Na+ 114, total CK 3543 and admitted for hyponatremia and rhabdomyolysis. #Hyponatremia, acute and likely 2/2 to severe dehydration and now nephrology also suspecting SIADH -s/p IVF -UA neg -F/u BMP daily -Nephrology consulted, suspected SIADH, placed him on fluid restriction #Acute rhabdomyolysis most likely 2/2 dehydration, fall, resolving -s/p IVFs #Hypokalemia, acute -K replaced -Daily BMP #Leukocytosis 2/2 dehydration vs rhabdomyolysis vs Enterovirus/rhinovirus on resp panel vs. CAP -+ resp panel is known. -CXR showed RUL PNA, on levaquin, day 4 of 5 -f/u legionnaire's, mycoplasma -UA neg -F/u blood culture #Enterovirus/rhinovirus on resp panel -On RA -Tylenol PRN if fevers, supportive care #Bronchial occlusion of the lateral basal left lower lobe bronchus, possible mucoid impaction. -Seen on CT chest -Currently on RA -C/w duonebs ATC and PRN, acapella Q2HRs #Hematuria- resolved -H/H stable, VS stable -Unknown if patient was straight catheterized for urine but if he was, could be traumatic bleeding with known BPH -restarting eliquis #Hypoglycemia likely 2/2 to decreased PO intake-improving -Encourage PO intake now that D5 fluids are d/lori -Monitor closely -FS Q6H, hypoglycemic protocol #Elevated troponin likely 2/2 to ischemic demand in presence of CHF? -No prior echocardiogram or ECG on file here -Trop trending down, not worsening . BNP also improved -HD stable -No events on tele -Echocardiogram ordered, f/u result #Dizziness most likely 2/2 hyponatremia, dehydration- improved -C/w treatment above -PT/OT when labs more stable. -Fall risk #Transaminitis likely 2/2 to alcohol abuse -Avoid hepatotoxic meds -Daily CMP #A. fib, rate controlled -Rate controlled. -C/w diltiazem (With hold parameters), eliquis #HTN -Stable -C/w diltiazem 180 mg, with hold parameters -Hold home Lasix, pending clinical improvement #History of alcohol abuse -No s/s of withdrawal -CIND protocol as a precaution -Continue home folic acid 1 mg daily, Protonix 40 mg daily #History of ileocecal resection with colostomy -ileocecal resection 3 years ago -Continue colostomy care #BPH -Continue home tamsulosin 0.4 mg #DVT prophylaxis -eliquis DISPOSITION: PT/OT ongoing,to discuss rehab. Nephrology following. VS,Fishbone, I+O VS, Fishbone, I+O Laboratory Tests 04/16/21 07:27 Vital Signs Date Time Temp Pulse Resp B/P (MAP) Pulse Ox O2 Delivery O2 Flow Rate FiO2 04/16/21 06:39 97.6 75 19 96/60 (72) 97 Room Air I&O- Last 24 Hours up to 6 AM 04/16/21 06:00 Intake Total 1470 ml Output Total 1750 ml Balance -280 ml BRISSA HUNT MD Apr 16, 2021 09:21
--- NOTE | 2021-04-16 19:20 | IPN ---
NEPHROLOGY PROGRESS NOTE DATE: 04/16/2021 SUBJECTIVE: Mr. Gaitan is seen this morning on his bedside. He is sitting in the chair today. He is feeling well and wants to go home. He denies any nausea, vomiting, dyspnea or chest pain. PHYSICAL EXAMINATION: VITAL SIGNS: Temperature 97.6 degrees Fahrenheit, heart rate 78 per minute, respiratory rate 18 per minute, blood pressure 98/64 mmHg, oxygen saturation 95% on room air. HEAD: Atraumatic. NECK: Supple and jugular venous distention (JVD) not abnormally elevated sitting upright. LUNGS: Clear to auscultation. HEART SOUNDS: Irregular. ABDOMEN: Soft and nontender. Bowel sounds are normal. EXTREMITIES: Without any cyanosis or clubbing. NEUROLOGIC: He seems to be grossly intact. LABORATORY DATA: Today's labs show WBC count down to 12.9, hemoglobin 11.3, hematocrit 32. Sodium level slightly better at 128, potassium 3.6, CO2 20, BUN 10, creatinine 0.69. PROBLEMS: 1. Hyponatremia. Sodium level stable and likely to improve. We started with some sodium bicarbonate 1300 mg twice a day just yesterday. Patient understands to follow a fluid restriction of 1500 mL per day. 2. Metabolic acidosis. He has mild metabolic acidosis and we will continue with sodium bicarbonate 1300 mg twice a day for now. 3. Rhabdomyolysis. This has resolved and CPK level has come down. No intravenous (IV) fluid needed at present.
[2021-04-16] MEDS: rOPINIRole 1MG TAB PO SCH (20:48)
[2021-04-16 22:00] VITALS: BP 115/78
[2021-04-17] MEDS: IPRATROPIUM 0.5MG/ALBUTEROL 2.5MG INH SOL UD 3ML (DUONEB) NEB SCH ×4 (01:42→20:08)
[2021-04-17 06:00] VITALS: BP 107/70
[2021-04-17] MEDS: BACLOFEN 10 MG TAB PO SCH ×3 (06:06→20:43)
[2021-04-17 07:03] LABS: BASO % 0.2 % (0.0-1.0); EOS # 0.3 10^3/uL (0.0-0.5); HEMATOCRIT 33.3 % (42.0-52.0); HEMOGLOBIN 11.5 g/dl (13.5-17.5); LYMPH # 1.4 10^3/uL (1.5-5.0); MEAN CORPUSCULAR HEMOGLOBIN 30.1 pg (27.0-33.0); MEAN CORPUSCULAR HGB CONC 34.5 g/dl (32.0-36.5); MEAN CORPUSCULAR VOLUME 87.2 fl (80.0-96.0); NEUTROPHILS % 77.9 % (36.0-66.0); PLATELET COUNT, AUTOMATED 282 10^3/uL (150-450); RED BLOOD COUNT 3.82 10^6/uL (4.30-6.10); WHITE BLOOD COUNT 12.8 10^3/uL (4.0-10.0)
[2021-04-17 07:28] LABS: ALT/SGPT 27 U/L (12-78); BILIRUBIN,TOTAL 0.8 MG/DL (0.2-1.0); BLOOD UREA NITROGEN 9 MG/DL (7-18); CALCIUM LEVEL 8.7 MG/DL (8.8-10.2); CARBON DIOXIDE LEVEL 21 MEQ/L (21-32); CHLORIDE LEVEL 99 MEQ/L (98-107); CREATININE FOR GFR 0.65 MG/DL (0.70-1.30); GLOMERULAR FILTRATION RATE > 60.0 (>42); GLUCOSE, FASTING 110 MG/DL (70-100); POTASSIUM SERUM 3.5 MEQ/L (3.5-5.1); SODIUM LEVEL 131 MEQ/L (136-145); TOTAL PROTEIN 5.4 GM/DL (6.4-8.2)
[2021-04-17] MEDS: MAGNESIUM OXIDE 400MG TAB (MAG-OX) PO SCH (09:13)
[2021-04-17] MEDS: NYSTATIN 500,000 U/5 ML SUSP UDC SS SCH ×4 (09:13→20:43)
[2021-04-17] MEDS: TAMSULOSIN 0.4 MG CAP PO SCH ×2 (09:14→20:43)
[2021-04-17] MEDS: SODIUM BICARBONATE 325 MG TAB PO SCH ×2 (09:14→20:43)
[2021-04-17] MEDS: GABAPENTIN 300 MG CAP PO SCH ×2 (09:14→20:44)
[2021-04-17] MEDS: MULTIVITAMINS/MINERALS THERAP 1 TAB PO SCH (09:14)
[2021-04-17] MEDS: APIXABAN 5 MG TAB (ELIQUIS) PO SCH ×2 (09:14→20:43)
[2021-04-17] MEDS: FOLIC ACID 1 MG TAB PO SCH (09:14)
[2021-04-17] MEDS: PANTOPRAZOLE 40MG TAB (PROTONIX) PO SCH (09:14)
[2021-04-17] MEDS: diltiaZEM **CD** 180 MG CAP PO SCH (09:15)
[2021-04-17] MEDS: LevoFLOXacin 500 MG TABLET PO SCH (13:17)
[2021-04-17 14:00] VITALS: BP 112/64
--- NOTE | 2021-04-17 14:37 | IPNPDOC ---
Text Note Date of Service The patient was seen on 04/17/21. NOTE SUBJECTIVE: -No acute complaints overnight. -Working with OT, could not stand up yesterday and I understand family is bringing in braces today OBJECTIVE: VITAL SIGNS: Please see below GENERAL APPEARANCE: NAD, sitting up at the side of the bed with one foot dangling off, AAOx 3 HEENT: NC/AT, EOMI, no dentition CARDIOVASCULAR: irregularly irregular rhythm, rate controlled. S1S2 +, no m/r/g LUNGS: mild crackles in posterior lower lobes, no w/r/r ABDOMEN: Soft, nontender, nondistended. Colostomy bag in RLQ intact. INTEGUMENTARY: intact, poor skin turgor MUSCULOSKELETAL: Normal ROM, 5/5 strength throughout EXTREMITIES: No edema/cyanosis, pulses in tact in all extremities NEUROLOGICAL: CN III-XII grossly intact, sensation intact. PSYCHIATRIC: mood and affect appropriate LABORATORY DATA: WBC 12.8 Hgb 11.5 platelets 282 na 131 K 3.5 Cr 0.65 IMAGING: CXR 04/13/21: Possible developing right upper lower lobe pneumonia. Follow-up with PA view of the chest. CT cervical spine (04/11) 1. No acute cervical spine fracture. 2. Chronic findings, as above. CT chest (04/11) 1. No evidence of acute chest injury. 2. Mild ground-glass opacities in the lower lobes bilaterally. Suspect mild pneumonia. 3. Bronchial occlusion of the lateral basal left lower lobe bronchus. Possible mucoid impaction. 4. Dilated ascending thoracic aorta. 5. Severe degenerative spine. 6. Severe spinal stenosis in the L2-L3 level. CXR (04/11) No acute infiltrate. Head CT (04/11) 1. No acute intracranial pathology. 2. Small air-fluid level in the left maxillary sinus. 3. Other chronic findings, as above. MICROBIOLOGY: Please see below. ASSESSMENT/PLAN: 70-year-old M with chronic A. fib on Eliquis, HTN, COPD, with EtOH abuse who presented with dizziness and recent fall, found to have Na+ 114, total CK 3543 and admitted for hyponatremia and rhabdomyolysis. #Hyponatremia, acute and likely 2/2 to severe dehydration and now nephrology also suspecting SIADH -s/p IVF -UA neg -F/u BMP daily -Nephrology consulted, suspected SIADH, placed him on fluid restriction, Na i mproved #Acute rhabdomyolysis most likely 2/2 dehydration, fall, resolved -s/p IVFs #Hypokalemia, acute -K replaced -Daily BMP #Leukocytosis 2/2 dehydration vs rhabdomyolysis vs Enterovirus/rhinovirus on resp panel vs. CAP -+ resp panel is known. -CXR showed RUL PNA, on levaquin, day 5 of 5 -f/u legionnaire's, mycoplasma -UA neg -F/u blood culture #Enterovirus/rhinovirus on resp panel -On RA -Tylenol PRN if fevers, supportive care #Bronchial occlusion of the lateral basal left lower lobe bronchus, possible mucoid impaction. -Seen on CT chest -Currently on RA -C/w duonebs ATC and PRN, acapella Q2HRs #Hematuria- resolved -H/H stable, VS stable -Unknown if patient was straight catheterized for urine but if he was, could be traumatic bleeding with known BPH -restarting eliquis #Hypoglycemia likely 2/2 to decreased PO intake-improving -Encourage PO intake now that D5 fluids are d/lori -Monitor closely -FS Q6H, hypoglycemic protocol #Elevated troponin likely 2/2 to ischemic demand -No prior echocardiogram or ECG on file here -Trop trending down, not worsening . BNP also improved -HD stable -No events on tele -Echocardiogram ordered, f/u result #Dizziness most likely 2/2 hyponatremia, dehydration- improved -C/w treatment above -PT/OT when labs more stable. -Fall risk #Transaminitis likely 2/2 to alcohol abuse -Avoid hepatotoxic meds -Daily CMP #A. fib, rate controlled -Rate controlled. -C/w diltiazem (With hold parameters), eliquis #HTN -Stable -C/w diltiazem 180 mg, with hold parameters -Hold home Lasix, pending clinical improvement #History of alcohol abuse -No s/s of withdrawal -CIDE protocol as a precaution -Continue home folic acid 1 mg daily, Protonix 40 mg daily #History of ileocecal resection with colostomy -ileocecal resection 3 years ago -Continue colostomy care #BPH -Continue home tamsulosin 0.4 mg #DVT prophylaxis -eliquis DISPOSITION: PT/OT ongoing, discussing rehab. Nephrology following. VS,Fishbone, I+O VS, Fishbone, I+O Laboratory Tests 04/17/21 06:36 Vital Signs Date Time Temp Pulse Resp B/P (MAP) Pulse Ox O2 Delivery O2 Flow Rate FiO2 04/17/21 06:00 97.2 85 18 107/70 (82) 95 Room Air I&O- Last 24 Hours up to 6 AM 04/17/21 05:59 Intake Total 1740 ml Output Total 2150 ml Balance -410 ml BRISSA HUNT MD Apr 17, 2021 08:41
--- NOTE | 2021-04-17 19:26 | IPN ---
PROGRESS NOTE DATE: 04/17/2021 SUBJECTIVE: Mr. Gaitan is seen this morning on his bedside. He is lying in his bed and feels well. He wants to go home. He reports that his daughter is going to bring his braces so he can work with the physical therapist for home safety evaluation. He denies any nausea or vomiting. PHYSICAL EXAMINATION: VITALS: Temperature 97.2 degrees Fahrenheit, heart rate 92 per minute, respiratory rate 18 per minute, blood pressure 114/77 mmHg and oxygen saturation 95% on room air. HEENT: Head is atraumatic. Neck is supple and without JVD or thyroid enlargement. HEART: Heart sounds are regular. LUNGS: Sound clear to auscultation. ABDOMEN: Soft and bowel sounds normal. EXTREMITIES: Without any cyanosis or clubbing. NEUROLOGIC: He is awake, alert and at his baseline mentation. LABORATORY DATA: Today's labs show sodium 131, potassium 3.5, BUN 9, creatinine 0.65. CO2 up to 21. PROBLEMS: 1. Hyponatremia: Sodium level has improved up to 131. I recommend to continue with sodium bicarbonate, at present he is receiving 1,300 mg b.i.d. Will adjust the dose if needed. He should also continue with fluid restriction of 1500 mL per day. 2. Metabolic acidosis: His acidosis is most likely related to his colostomy losses. At present, will continue with sodium bicarbonate supplement which has helped to improve his acidosis. 3. Rhabdomyolysis: His rhabdomyolysis has completely resolved and does not need any further intervention. DISPOSITION: From a renal standpoint, patient can be discharged to home. He understands to follow fluid restriction of 1500 mL per day. He will follow-up with my clinic in two weeks.
[2021-04-17] MEDS: rOPINIRole 1MG TAB PO SCH (20:43)
[2021-04-17] MEDS: HYDROcodone/APAP LIQUID 7.5-325MG 15ML UDC (LORTAB ELIXIR) PO PRN (20:44)
[2021-04-17 22:00] VITALS: BP 105/67
[2021-04-18] MEDS: IPRATROPIUM 0.5MG/ALBUTEROL 2.5MG INH SOL UD 3ML (DUONEB) NEB SCH ×3 (02:13→13:46)
[2021-04-18 05:52] LABS: BASO % 0.3 % (0.0-1.0); EOS # 0.3 10^3/uL (0.0-0.5); EOS % 2.4 % (0.0-3.0); HEMATOCRIT 32.6 % (42.0-52.0); HEMOGLOBIN 11.2 g/dl (13.5-17.5); LYMPH # 1.4 10^3/uL (1.5-5.0); LYMPH % 12.9 % (24.0-44.0); MEAN CORPUSCULAR HEMOGLOBIN 30.4 pg (27.0-33.0); MEAN CORPUSCULAR HGB CONC 34.4 g/dl (32.0-36.5); MEAN CORPUSCULAR VOLUME 88.3 fl (80.0-96.0); MONO % 9.8 % (2.0-8.0); NEUTROPHILS # 7.7 10^3/uL (1.5-8.5); NEUTROPHILS % 73.2 % (36.0-66.0); PLATELET COUNT, AUTOMATED 250 10^3/uL (150-450); RED BLOOD COUNT 3.69 10^6/uL (4.30-6.10); WHITE BLOOD COUNT 10.5 10^3/uL (4.0-10.0)
[2021-04-18 06:00] VITALS: BP 112/62
[2021-04-18] MEDS: BACLOFEN 10 MG TAB PO SCH ×2 (06:08→14:11)
[2021-04-18] MEDS: HYDROcodone/APAP LIQUID 7.5-325MG 15ML UDC (LORTAB ELIXIR) PO PRN (06:09)
[2021-04-18] MEDS: TAMSULOSIN 0.4 MG CAP PO SCH (08:48)
[2021-04-18] MEDS: MULTIVITAMINS/MINERALS THERAP 1 TAB PO SCH (08:48)
[2021-04-18] MEDS: MAGNESIUM OXIDE 400MG TAB (MAG-OX) PO SCH (08:48)
[2021-04-18] MEDS: FOLIC ACID 1 MG TAB PO SCH (08:48)
[2021-04-18] MEDS: GABAPENTIN 300 MG CAP PO SCH (08:48)
[2021-04-18] MEDS: PANTOPRAZOLE 40MG TAB (PROTONIX) PO SCH (08:48)
[2021-04-18] MEDS: NYSTATIN 500,000 U/5 ML SUSP UDC SS SCH ×2 (08:48→13:00)
[2021-04-18] MEDS: SODIUM BICARBONATE 325 MG TAB PO SCH (08:48)
[2021-04-18 08:49] VITALS: BP 105/71
[2021-04-18] MEDS: APIXABAN 5 MG TAB (ELIQUIS) PO SCH (08:49)
[2021-04-18] MEDS: diltiaZEM **CD** 180 MG CAP PO SCH (08:49)
[2021-04-18 09:13] LABS: BLOOD UREA NITROGEN 7 MG/DL (7-18); CALCIUM LEVEL 8.5 MG/DL (8.8-10.2); CARBON DIOXIDE LEVEL 25 MEQ/L (21-32); CHLORIDE LEVEL 97 MEQ/L (98-107); CREATININE FOR GFR 0.51 MG/DL (0.70-1.30); GLOMERULAR FILTRATION RATE > 60.0 (>42); GLUCOSE, FASTING 90 MG/DL (70-100); MAGNESIUM LEVEL 0.8 MG/DL (1.8-2.4); POTASSIUM SERUM 3.8 MEQ/L (3.5-5.1); SODIUM LEVEL 130 MEQ/L (136-145)
[2021-04-18] MEDS: MAG SULF 1GM/100ML (MAG RUN) 1 GM in IV 1 EA IV SCH ×3 (09:55→11:58)
[2021-04-18 14:00] VITALS: BP 104/70
--- NOTE | 2021-04-18 17:02 | IPNPDOC ---
Text Note Date of Service The patient was seen on 04/18/21. NOTE SUBJECTIVE: -No acute complaints overnight. OBJECTIVE: VITAL SIGNS: Please see below GENERAL APPEARANCE: NAD, sitting up at the side of the bed with one foot dangling off, AAOx 3 HEENT: NC/AT, EOMI, no dentition CARDIOVASCULAR: irregularly irregular rhythm, rate controlled. S1S2 +, no m/r/g LUNGS: mild crackles in posterior lower lobes, no w/r/r ABDOMEN: Soft, nontender, nondistended. Colostomy bag in RLQ intact. INTEGUMENTARY: intact, poor skin turgor MUSCULOSKELETAL: Normal ROM, 5/5 strength throughout EXTREMITIES: No edema/cyanosis, pulses in tact in all extremities NEUROLOGICAL: CN III-XII grossly intact, sensation intact. PSYCHIATRIC: mood and affect appropriate LABORATORY DATA: WBC 10.5 Hgb 11.2 platelets 250 pending BMP IMAGING: CXR 04/13/21: Possible developing right upper lower lobe pneumonia. Follow-up with PA view of the chest. CT cervical spine (04/11) 1. No acute cervical spine fracture. 2. Chronic findings, as above. CT chest (04/11) 1. No evidence of acute chest injury. 2. Mild ground-glass opacities in the lower lobes bilaterally. Suspect mild pneumonia. 3. Bronchial occlusion of the lateral basal left lower lobe bronchus. Possible mucoid impaction. 4. Dilated ascending thoracic aorta. 5. Severe degenerative spine. 6. Severe spinal stenosis in the L2-L3 level. CXR (04/11) No acute infiltrate. Head CT (04/11) 1. No acute intracranial pathology. 2. Small air-fluid level in the left maxillary sinus. 3. Other chronic findings, as above. MICROBIOLOGY: Please see below. ASSESSMENT/PLAN: 70-year-old M with chronic A. fib on Eliquis, HTN, COPD, with EtOH abuse who presented with dizziness and recent fall, found to have Na+ 114, total CK 3543 and admitted for hyponatremia and rhabdomyolysis. #Hyponatremia, acute and likely 2/2 to severe dehydration and now nephrology also suspecting SIADH -s/p IVF -UA neg -F/u BMP daily -Nephrology consulted, also suspected SIADH, placed him on fluid restriction, Na improved #Acute rhabdomyolysis most likely 2/2 dehydration, fall, resolved -s/p IVFs #Hypokalemia, acute -K replaced -Daily BMP #Leukocytosis 2/2 dehydration vs rhabdomyolysis vs Enterovirus/rhinovirus on resp panel vs. CAP -+ resp panel is known. -CXR showed RUL PNA, s/p levaquin 5d course. -f/u legionnaire's, mycoplasma -UA neg -blood cultures were negative #Enterovirus/rhinovirus on resp panel -On RA -Tylenol PRN if fevers, supportive care #Bronchial occlusion of the lateral basal left lower lobe bronchus, possible mucoid impaction. -Seen on CT chest -Currently on RA -C/w duonebs ATC and PRN, acapella Q2HRs #Hematuria- resolved -H/H stable, VS stable -Unknown if patient was straight catheterized for urine but if he was, could be traumatic bleeding with known BPH -restarting eliquis #Hypoglycemia likely 2/2 to decreased PO intake-improved -Encourage PO intake -Monitor closely #Elevated troponin 2/2 to ischemic demand -No prior echocardiogram or ECG on file here, f/u result -Trop trended down. BNP also improved -HD stable -No events on tele #Dizziness most likely 2/2 hyponatremia, dehydration- resolved -PT/OT -Fall risk #Transaminitis likely 2/2 to alcohol abuse -Avoid hepatotoxic meds -Daily CMP #A. fib, rate controlled -Rate controlled. -C/w diltiazem (With hold parameters), eliquis #HTN -Stable -C/w diltiazem 180 mg, with hold parameters -Hold home Lasix, pending clinical improvement #History of alcohol abuse -No s/s of withdrawal -CIWA protocol as a precaution -Continue home folic acid 1 mg daily, Protonix 40 mg daily #History of ileocecal resection with colostomy -ileocecal resection 3 years ago -Continue colostomy care #BPH -Continue home tamsulosin 0.4 mg -removed marie #DVT prophylaxis -eliquis DISPOSITION: PT/OT ongoing, discussing rehab vs. home with services. Will make ALC at this time pending PT/OT recs for safe disposition. VS,Fishbone, I+O VS, Fishbone, I+O Laboratory Tests 04/18/21 05:30 Vital Signs Date Time Temp Pulse Resp B/P (MAP) Pulse Ox O2 Delivery O2 Flow Rate FiO2 04/18/21 06:39 16 Room Air 04/18/21 06:00 98.2 83 112/62 (31) 96 I&O- Last 24 Hours up to 6 AM 04/18/21 06:00 Intake Total 630 ml Output Total 1350 ml Balance -720 ml BRISSA HUNT MD Apr 18, 2021 08:41
--- NOTE | 2021-04-18 17:54 | DS.PDOC ---
Discharge Summary General Date of Admission Apr 11, 2021 at 23:49 Date of Discharge 04/18/2021 Attending Physician: BRISSA HUNT MD Specialist/Consultants Involve: IVON HOWARD MD @ Discharge Summary PROCEDURES PERFORMED DURING STAY: None ADMITTING DIAGNOSES: Hyponatremia Dizziness DISCHARGE DIAGNOSES: CAP Hyponatremia Physical deconditioning Dehydration Rhabdomyolysis Chronic A. fib on Eliquis HTN COPD History of alcohol abuse BPH COMPLICATIONS/CHIEF COMPLAINT: Dizziness Of Unknown Cause; Hyponatremia. HISTORY OF PRESENT ILLNESS: 70-year-old M with a history of Chronic A. fib on Eliquis, HTN, COPD, History of alcohol abuse, BPH and chronic debility who uses an electric wheelchair at baseline and lives alone who was brought in to the ED by EMS after being found down on his bathroom floor. He reportied that he had been urinating on the toilet when he slid off and fell to the floor and was unable to get himself up independently. His girlfriend who lives within the same building found him and called EMS. HOSPITAL COURSE: On arrival, he denied hitting his head, loss of consciousness, loss of bowel or bladder function, a history of recurrent falls, recent illness, fever, chills, fatigue, weakness, chest pain or palpitations. He reported a loss of appetite x1 week with poor oral intake and had looser stools that usual in his colostomy. Of note, he was noted to be confused and poor historian in the ED and per ED nurse, patient's daughter and healthcare proxy reports that this is in line with patient's baseline. CBC was significant for WBC 23.4. CMP significant for Na+ 114, Cl- 80, CO2 15. Anion gap 19. LA 1.6. Total CK 3543, troponin 0.14, BNP 2924. TSH WNL. ABG significant for PCO2 21.7, HCO3 15.5. EKG significant for A. fib, HR 74. Imaging was unremarkable, as noted below. He received 1 L bolus NS and was admitted to medicine for hyponatremia, dehydration, rhabdomyolysis and physical deconditioning. Nephrology was consulted for the hyponatremia that was managed initially with hydration with some improvement and later was thought to have some contribution from SIADH and he was placed on fluid restriction with good effect. He was also found to have CAP and was treated with 5d of levaquin. His hyponatremia, rhabdomyolysis, dehydration and CAP were treated to completion. His course was c/b persistent deconditioning and he worked with PT and OT and while he did improve, he was unfortunately not yet back at baseline and unable to accomplish full unassisted independent transfers as he would need to as a man who lives alone with only 3 hours of services per week. PT recommended that he would benefit from a short stay in rehab most likely subacute for an eventual safe discharge home. He insisted that he did not want to go to rehab and that he would take the risk of another fall and has enough support within his building to look in on him and ultimately chose to signout AMA. DISCHARGE MEDICATIONS: Please see below. ALLERGIES: Please see below. PHYSICAL EXAMINATION ON DISCHARGE: VITAL SIGNS: Please see below GENERAL APPEARANCE: NAD, sitting up at the side of the bed with one foot dangling off, AAOx 3 HEENT: NC/AT, EOMI, no dentition CARDIOVASCULAR: irregularly irregular rhythm, rate controlled. S1S2 +, no m/r/g LUNGS: mild crackles in posterior lower lobes, no w/r/r ABDOMEN: Soft, nontender, nondistended. Colostomy bag in RLQ intact. INTEGUMENTARY: intact, poor skin turgor MUSCULOSKELETAL: Normal ROM, 5/5 strength throughout EXTREMITIES: No edema/cyanosis, pulses in tact in all extremities NEUROLOGICAL: CN III-XII grossly intact, sensation intact. PSYCHIATRIC: mood and affect appropriate LABORATORY DATA: Please see below. IMAGING: CXR 04/13/21: Possible developing right upper lower lobe pneumonia. Follow-up with PA view of the chest. CT cervical spine (04/11) 1. No acute cervical spine fracture. 2. Chronic findings, as above. CT chest (04/11) 1. No evidence of acute chest injury. 2. Mild ground-glass opacities in the lower lobes bilaterally. Suspect mild pneumonia. 3. Bronchial occlusion of the lateral basal left lower lobe bronchus. Possible mucoid impaction. 4. Dilated ascending thoracic aorta. 5. Severe degenerative spine. 6. Severe spinal stenosis in the L2-L3 level. CXR (04/11) No acute infiltrate. Head CT (04/11) 1. No acute intracranial pathology. 2. Small air-fluid level in the left maxillary sinus. 3. Other chronic findings, as above. PROGNOSIS: Fair, high fall risk and high risk for readmission ACTIVITY: As tolerated DIET: 2g sodium DISCHARGE PLAN: AMA DISPOSITION: 07 Against Medical Advice. DISCHARGE INSTRUCTIONS: AMA ITEMS TO FOLLOWUP ON ON OUTPATIENT: PCP follow up DISCHARGE CONDITION: Stable TIME SPENT ON DISCHARGE: 44 minutes. Vital Signs/I&Os Vital Signs Date Time Temp Pulse Resp B/P (MAP) Pulse Ox O2 Delivery O2 Flow Rate FiO2 04/18/21 14:00 98.1 97 22 104/70 (81) 100 Room Air I&O- Last 24 Hours up to 6 AM 04/18/21 06:00 Intake Total 630 ml Output Total 1350 ml Balance -720 ml Laboratory Data Labs 24H Laboratory Tests 2 04/18/21 05:28: Anion Gap 8, Glomerular Filtration Rate > 60.0, Calcium Level 8.5L, Magnesium Level 0.8*L 04/18/21 05:30: Immature Granulocyte % (Auto) 1.4, Neutrophils (%) (Auto) 73.2H, Lymphocytes (%) (Auto) 12.9L, Monocytes (%) (Auto) 9.8H, Eosinophils (%) (Auto) 2.4, Basophils (%) (Auto) 0.3, Neutrophils # (Auto) 7.7, Lymphocytes # (Auto) 1.4L, Monocytes # (Auto) 1.0H, Eosinophils # (Auto) 0.3, Basophils # (Auto) 0.0, Nucleated Red Blood Cells % (auto) 0.0 CBC/BMP Laboratory Tests 04/18/21 05:28 04/18/21 05:30 Microbiology Microbiology 04/11/21 Respiratory Virus Panel (PCR) (SEE) - Final, Complete Human Rhinovirus/Enterovirus 04/11/21 Blood Culture - Final, Complete NO GROWTH AFTER 5 DAYS 04/11/21 Blood Culture - Final, Complete NO GROWTH AFTER 5 DAYS Discharge Medications Scheduled Apixaban (Eliquis) 5 Mg Tablet, 5 MG PO BID, (Reported) Baclofen (Baclofen) 20 Mg Tablet, 20 MG PO Q8H, (Reported) TAKE WITH FOOD OR MILK Buprenorphine (Buprenorphine) 20 Mcg/Hr Patch.tdwk, 20 MCG TOP QWEEK, (Reported) APPLY EVERY 7 DAYS Folic Acid (Folic Acid) 1 Mg Tab, 1 MG PO DAILY, (Reported) Furosemide (Furosemide) 20 Mg Tablet, 20 MG PO Q2D, (Reported) Gabapentin (Gabapentin) 300 Mg Capsule, 300 MG PO BID, (Reported) Levocetirizine Dihydrochloride (Levocetirizine Dihydrochloride) 5 Mg Tablet, 5 MG PO DAILY, (Reported) Magnesium Oxide (Magnesium Oxide) 400 Mg Tablet, 800 MG PO DAILY, (Reported) Pantoprazole Sodium (Protonix) 40 Mg Tab, 40 MG PO DAILY, (Reported) Ropinirole HCl (Ropinirole HCl) 1 Mg Tablet, 1 MG PO QHS, (Reported) Sodium Chloride (Sodium Chloride) 1 Gm Tablet, 1 GM PO BID, (Reported) Tamsulosin Hcl (Tamsulosin HCl) 0.4 Mg Capsule, 0.4 MG PO DAILY, (Reported) dilTIAZem HCl (Diltiazem 24Hr Cd) 180 Mg Cap.er.24h, 180 MG PO DAILY, (Reported) Scheduled PRN Diphenoxylate HCl/Atropine (Diphenoxylate-Atrop 2.5-0.025) 1 Each Tablet, 2 TABS PO QID PRN for DIARRHEA, (Reported) Hydrocodone/Acetaminophen (Hydrocodone-Acetamin 10-325 mg) 1 Each Tablet, 1 TAB PO Q8H PRN for SEVERE PAIN, (Reported) Loperamide HCl (Loperamide) 2 Mg Capsule, 2 MG PO QID PRN for DIARRHEA, (Reported) Ondansetron HCl (Ondansetron HCl) 4 Mg Tablet, 4 MG PO Q8H PRN for NAUSEA OR VOMITING, (Reported) Allergies Coded Allergies: promethazine (Verified Allergy, Unknown, restless leg, 04/11/21) BRISSA HUNT MD Apr 18, 2021 17:54
== END 2021-04-18 15:19 | disposition left against medical advice (07) | DRG 643 ==
LOC: M ED 18:24 → M ED INP 23:49 → M MSPAV 04-12 16:00
PROVIDERS: ADMIT Family Medicine; ATTEND Internal Medicine
DX: E22.2 Syndrome of inappropriate secretion of antidiuretic hormone (principal); J18.9 Pneumonia, unspecified organism; M62.82 Rhabdomyolysis; E87.2 Acidosis; I48.91 Unspecified atrial fibrillation; I11.0 Hypertensive heart disease with heart failure; J44.9 Chronic obstructive pulmonary disease, unspecified; N40.0 Benign prostatic hyperplasia without lower urinary tract symptoms; F10.11 Alcohol abuse, in remission; Z93.3 Colostomy status; Z87.891 Personal history of nicotine dependence; Z20.822 Contact with and (suspected) exposure to COVID-19; E86.0 Dehydration; Z79.01 Long term (current) use of anticoagulants; Z79.899 Other long term (current) drug therapy; Z88.8 Allergy status to other drugs, medicaments and biological substances; D72.829 Elevated white blood cell count, unspecified; E83.42 Hypomagnesemia; B34.8 Other viral infections of unspecified site; E16.2 Hypoglycemia, unspecified; R31.9 Hematuria, unspecified; R77.8 Other specified abnormalities of plasma proteins; R74.01 Elevation of levels of liver transaminase levels; E87.6 Hypokalemia; I50.9 Heart failure, unspecified

== ENCOUNTER → 2021-05-27 | Outpatient (CLI) | payer MEDICARE ==
[~2021-05-27] MED LIST changes: +BACL1TAB9 PO; +BUPR20DI3 TOP; +BUPR300T92 PO; +DILT180C70 PO; +FURO20TA2 PO; +HYDR-3719 PO; +LEVOTAB10 PO; +LOPE1CAP5 PO; +MAGN400T2 PO; +ONDA-83 PO; +OXYB15TA14; +ROPI1TAB3 PO; +SODI1TAB6 PO; +SPIR-10 PO; +TAMS1CAP17 PO
== END ==
LOC: M PAIN 11:15
PROVIDERS: ATTEND Anesthesiology
DX: M96.1 Postlaminectomy syndrome, not elsewhere classified (principal); I10 Essential (primary) hypertension; I48.91 Unspecified atrial fibrillation; M10.9 Gout, unspecified; J44.9 Chronic obstructive pulmonary disease, unspecified; F41.9 Anxiety disorder, unspecified; Z93.2 Ileostomy status; G25.81 Restless legs syndrome; F17.210 Nicotine dependence, cigarettes, uncomplicated; Z88.8 Allergy status to other drugs, medicaments and biological substances; Z79.01 Long term (current) use of anticoagulants; Z79.891 Long term (current) use of opiate analgesic; Z79.899 Other long term (current) drug therapy

== ENCOUNTER → 2021-08-13 | Outpatient (CLI) | payer MEDICARE, OTHER | LOC: M PAIN 09:30 | PROVIDERS: ATTEND Anesthesiology | DX: M96.1 Postlaminectomy syndrome, not elsewhere classified (principal); I10 Essential (primary) hypertension; I48.91 Unspecified atrial fibrillation; M10.9 Gout, unspecified; J44.9 Chronic obstructive pulmonary disease, unspecified; F41.9 Anxiety disorder, unspecified; G25.81 Restless legs syndrome; F17.210 Nicotine dependence, cigarettes, uncomplicated; Z99.81 Dependence on supplemental oxygen; Z79.891 Long term (current) use of opiate analgesic; Z79.01 Long term (current) use of anticoagulants; Z79.899 Other long term (current) drug therapy; Z88.8 Allergy status to other drugs, medicaments and biological substances ==

== ENCOUNTER → 2021-11-12 | Outpatient (CLI) | payer MEDICARE, OTHER ==
[~2021-11-12] MED LIST changes: +ALBU2.5V10 INH; -ALBU83IN INH
== END ==
LOC: M PAIN 10:00
PROVIDERS: ATTEND Nurse Practitioner Family
DX: M96.1 Postlaminectomy syndrome, not elsewhere classified (principal); G89.29 Other chronic pain; J44.9 Chronic obstructive pulmonary disease, unspecified; G25.81 Restless legs syndrome; F17.210 Nicotine dependence, cigarettes, uncomplicated; Z86.73 Personal history of transient ischemic attack (TIA), and cerebral infarction without residual deficits; Z86.59 Personal history of other mental and behavioral disorders; Z88.8 Allergy status to other drugs, medicaments and biological substances; Z79.01 Long term (current) use of anticoagulants; Z79.891 Long term (current) use of opiate analgesic; Z79.899 Other long term (current) drug therapy

== ENCOUNTER → 2022-05-13 | Outpatient (CLI) | payer MEDICARE, OTHER | LOC: M PAIN 09:15 | PROVIDERS: ATTEND Nurse Practitioner Family | DX: M96.1 Postlaminectomy syndrome, not elsewhere classified (principal); G89.29 Other chronic pain; Z79.01 Long term (current) use of anticoagulants; Z79.891 Long term (current) use of opiate analgesic; Z79.899 Other long term (current) drug therapy ==

== ENCOUNTER → 2022-08-26 | Outpatient (CLI) | payer MEDICARE, OTHER | LOC: M PAIN 10:15 | PROVIDERS: ATTEND Nurse Practitioner Family | DX: M96.1 Postlaminectomy syndrome, not elsewhere classified (principal); Z79.891 Long term (current) use of opiate analgesic; F17.210 Nicotine dependence, cigarettes, uncomplicated; I10 Essential (primary) hypertension; I48.91 Unspecified atrial fibrillation; M10.9 Gout, unspecified; J44.9 Chronic obstructive pulmonary disease, unspecified; F41.9 Anxiety disorder, unspecified; G25.81 Restless legs syndrome; Z79.01 Long term (current) use of anticoagulants; Z79.899 Other long term (current) drug therapy; Z88.8 Allergy status to other drugs, medicaments and biological substances ==